=== PATIENT | male | born 1970 | race Caucasian/White ===

== ENCOUNTER → 2019-11-05 16:09 | Outpatient (CLI) | payer BC, SELFPAY ==
--- NOTE | ~2019-11-05 | XR_ITS ---
EXAMINATION: XR lumbar spine 2-3V EXAM DATE: 11/05/2019 16:29 INDICATION: Low back pain, lifting injury 4-5 years ago. TECHNIQUE: Lumber spine frontal, lateral, lateral L5-S1 projections for interpretation. There is no prior study for comparison. FINDINGS: There is mild diffuse thoracolumbar disc disease, mild to moderate lower lumbar facet arth ropathy. Sacrum, sacroiliac joints, sacral arcuate lines are intact. Paraspinal soft tissue is unrema rkable. The vertebral bodies are aligned in the AP dimension. IMPRESSION: 1. Mild lumbar disc disease 2. Mild to moderate facet arthropathy. Reviewed, dictated and finalized at location A.
== END ==
PROVIDERS: PCP Emergency Medicine; Visit Provider Nurse Practitioner
DX: M51.36 Other intervertebral disc degeneration, lumbar region (principal)
CPT/HCPCS: 72100

== ENCOUNTER 2020-06-03 16:47 | Emergency (ER) | payer BC, SELFPAY ==
[2020-06-03 17:08] VITALS: BP 203/97; PULSE 69; RESP 18; TEMP 36.3; O2SAT 99
[2020-06-03 17:09] VITALS: O2SAT 98
[2020-06-03 17:15] VITALS: O2SAT 98
[2020-06-03 17:30] VITALS: O2SAT 97
[2020-06-03 17:45] VITALS: O2SAT 98
--- NOTE | 2020-06-03 17:58 | ED.GENADULT ---
HPI - General Adult General Chief complaint: Head Injury Stated complaint: head injury (fall) Time Seen by Provider: 06/03/20 17:17 Source: patient Mode of arrival: ambulatory Limitations: no limitations History of Present Illness HPI narrative: Patient 50-year-old male who presents to emergency department for evaluation of head injury patient notes he was walking when he slipped on a surface falling striking the head patient notes hematoma to the scalp notes aching pain at the location of the hematoma but otherwise denies any headache lightheadedness dizziness nausea vomiting weakness syncope LOC or anticoagulant use patient notes minimal discomfort on arrival resting in the room in no distress does not appear uncomfortable Related Data Allergies Allergy/AdvReac Type Severity Reaction Status Date / Time No Known Allergies Allergy Unverified 07/26/18 18:30 Review of Systems Review of Systems: All systems reviewed & are unremarkable except as noted in HPI and below PMFSH Family History Family History (Updated 04/11/18 @ 09:45 by DOCTOR UNKNOWN) Mother Family history of obesity Family history of malignant melanoma Father Patient's father is in good health Hypertension Sibling Patient's sister is in good health Social History Social History Smoking status: Current every day smoker Alcohol intake: never Exam Narrative: Exam Narrative: GENERAL: Well-appearing, well-nourished, and in no acute distress. HEAD: Normocephalic, hematoma posterior parietal scalp EYES: PERRLA and EOMI. ENT: Nares clear, no rhinorrhea or epistaxis. Mucous membranes moist. NECK: Supple. No adenopathy or masses. No carotid bruits or JVD CHEST: Clear to auscultation. No respiratory distress. No wheezes rales or rhonchi HEART: Regular rate and rhythm. No murmur heard. Normal peripheral pulses. ABDOMEN: Soft, nontender, nondistended, normal active bowel sounds. EXTREMITIES: Normal range of motion. No edema. No cervical thoracic or lumbar tenderness SKIN: Warm, dry, no rash. NEURO: No focal deficits. Alert and oriented x3. Cranial nerves II through XII grossly intact. Normal speech and gait PSYCH: Normal mood and affect. Course Course Emergency Course: Patient in the room minimal discomfort no distress felt appropriate for outpatient reevaluation agreeing to return if symptoms worsen Vital Signs Vital signs: Vital Signs Temperature 97.3 F L 06/03/20 17:08 Pulse Rate 69 06/03/20 17:08 Respiratory Rate 18 06/03/20 17:08 Blood Pressure 203/97 H 06/03/20 17:08 Pulse Oximetry 99 06/03/20 17:08 Temperature 97.3 F L 06/03/20 17:08 Pulse Rate 69 06/03/20 17:08 Respiratory Rate 18 06/03/20 17:08 Blood Pressure 203/97 H 06/03/20 17:08 Pulse Oximetry 99 06/03/20 17:08 Medical Decision Making MDM Narrative Medical decision making narrative: Patient with minor head injury will be discharged home with outpatient follow-up patient agrees with this plan Vital Signs Vital Signs: Vital Signs Temperature 97.3 F L 06/03/20 17:08 Pulse Rate 69 06/03/20 17:08 Respiratory Rate 18 06/03/20 17:08 Blood Pressure 203/97 H 06/03/20 17:08 Pulse Oximetry 99 06/03/20 17:08 Temperature 97.3 F L 06/03/20 17:08 Pulse Rate 69 06/03/20 17:08 Respiratory Rate 18 06/03/20 17:08 Blood Pressure 203/97 H 06/03/20 17:08 Pulse Oximetry 99 06/03/20 17:08 Discharge Plan Discharge Clinical Impression: Closed head injury Patient Disposition: Home, Self-Care Condition: Stable Instructions: Antibiotic Form, Head Injury (ED) Additional Instructions: Follow up with your primary care doctor in 5-7 days for re-evaluation. Go to ER for worsening pain, vision changes, nausea/vomiting, fever/chills, weakness, chest pain, shortness of breath, numbness/tingling, slurred speech, difficulty walking, change in mental status etc. or any
[2020-06-03 18:00] VITALS: O2SAT 98
== END 2020-06-03 18:17 | disposition home or self-care (01) ==
PROVIDERS: Emergency Provider Emergency Medicine; PCP Emergency Medicine
DX: S09.90XA Unspecified injury of head, initial encounter (principal); F17.210 Nicotine dependence, cigarettes, uncomplicated; W01.0XXA Fall on same level from slipping, tripping and stumbling without subsequent striking against object, initial encounter
CPT/HCPCS: 99283

== ENCOUNTER 2021-05-16 01:28 | Day surgery (SDC) | payer BC, SELFPAY ==
[2021-05-06 13:29] VITALS: BMI 42.7
[2021-05-16 09:42] VITALS: BP 189/98; PULSE 92; RESP 17; TEMP 35.7; O2SAT 99; BMI 42.5
--- NOTE | 2021-05-16 09:56 | P.PNAN_ITS ---
Anes - Initial Pre Proc Eval Procedure: Operation Date: 05/16/21 10:30 Proposed Procedures p Screening Colonoscopy - David Ward MD Date/Time: 05/16/21 09:56 Surgeon: David Ward MD Pre Op Diagnosis: hx of colon polyps, neoplasm screening Patient Data Age: 51 Gender: M Height: 1.7 m Weight: 123 kg Last Vital Signs Temp 35.7 C L 05/16/21 09:42 Pulse 92 05/16/21 09:42 Resp 17 05/16/21 09:42 BP 189/98 H 05/16/21 09:42 Pulse Ox 99 05/16/21 09:42 Allergies Allergy/AdvReac Type Severity Reaction Status Date / Time No Known Allergies Allergy Verified 05/16/21 09:40 Home Medications Medication Instructions Recorded Confirmed Type hydrocodone-acetaminophen 5 - 325 tablet PO Q12-24H PRN 05/06/21 05/16/21 History losartan 100 mg PO DAILY 05/06/21 05/16/21 History rosuvastatin 10 mg PO DAILY 05/06/21 05/16/21 History Patient hx anesthesia problems: none Family hx anesthesia problems: none Results Review: All pre-operative results and documents have been reviewed as part of the pre-operative evaluation. [facility] Past Medical History Medical History (Updated 05/16/21 @ 09:57 by Slick Hui MD) Chronic back pain HTN (hypertension) Hyperlipidemia Morbid obesity Family History Family History Mother Family history of obesity Family history of malignant melanoma Father Patient's father is in good health Hypertension Sibling Patient's sister is in good health Social History Social History Smoking status: Current every day smoker Alcohol intake: current Substance use: current Substance use type: other Other substance usage details: THC Vape pen Living arrangements: with family Spiritual care concerns: No Anes - Eval Final PreProcedure Day of Procedure 05/16/21 09:56 Patient weight: morbidly obese Heart: regular rate and rhythm Lungs: clear to auscultation Airway: Mallampati scale class II Neurological: alert and oriented Last oral intake: >/= 8 hours ASA classification: III Emergent: no Anesthetic plan: proceed Anesthesia type and monitoring: general GIVS and standard monitoring Results Review: All pre-operative results and documents have been reviewed as part of the pre-operative evaluation. Informed Consent: The patient's anesthetic plan and its attendant risks and benefits were discussed with the patient/family/POA. Questions were solicited and answers provided to the satisfaction of the patient/family/POA.
[2021-05-16] MEDS: LACTATED RINGERS 1,000 ML 150 ML IV CONT (10:06)
--- NOTE | 2021-05-16 10:13 | WPDGICN ---
Assessment and Plan Assessment and plan (1) History of colon polyps: Code(s): Z86.010 - Personal history of colonic polyps Status: Acute Assessment and Plan: Patient has a history of colon polyps. He presents today for screening colonoscopy because of this. Further recommendations will be given after endoscopy. GI Consult Note Consult date/time: 05/16/21 10:13 HPI: Gio Grider is a 51 year old male Presents for screening colonoscopy. Patient reports 10 years ago had colonoscopy in multiple colon polyps were identified. He has had several follow-up colonoscopy subsequently with additional polyps noted. Most recent colonoscopy was 3-4 years ago. Patient reports that his current weight appetite and bowel movements are normal. His family history is noncontributory. He has noticed no bleeding. Review of Systems Review of Systems: All systems reviewed & are unremarkable except as noted in HPI and below PMFSH Past Medical History Medical History (Updated 05/16/21 @ 10:14 by David Ward MD) Chronic back pain HTN (hypertension) Hyperlipidemia Morbid obesity Family History Family History Mother Family history of obesity Family history of malignant melanoma Father Patient's father is in good health Hypertension Sibling Patient's sister is in good health Social History Social History Smoking status: Current every day smoker Alcohol intake: current Substance use: current Substance use type: other Other substance usage details: THC Vape pen Living arrangements: with family Spiritual care concerns: No Meds Home Medications and Allergies Home Medications Medication Instructions Recorded Confirmed Type hydrocodone-acetaminophen 5 - 325 tablet PO Q12-24H PRN 05/06/21 05/16/21 History losartan 100 mg PO DAILY 05/06/21 05/16/21 History rosuvastatin 10 mg PO DAILY 05/06/21 05/16/21 History Allergies Allergy/AdvReac Type Severity Reaction Status Date / Time No Known Allergies Allergy Verified 05/16/21 09:40 Vital Signs Vital Signs - 24 hr 05/16/21 09:42 Temperature 96.3 F L Pulse Rate 92 Respiratory Rate 17 Blood Pressure 189/98 H Pulse Oximetry 99 Exam Narrative: Physical exam reveals patient to be alert. Vital signs stable. HEENT exam is unremarkable. Patient is anicteric. Lungs are clear to auscultation and percussion. Heart is without murmur or extra sounds. Abdominal exam bowel sounds are present soft nontender with no organomegaly. Digital external rectal exam is normal.
[2021-05-16 10:44] VITALS: BP 126/84; PULSE 85; RESP 18; O2SAT 96
[2021-05-16 10:54] VITALS: BP 150/97; PULSE 76; RESP 21; O2SAT 96
[2021-05-16 11:04] VITALS: BP 144/91; PULSE 74; RESP 14; O2SAT 95
== END 2021-05-16 11:16 | disposition home or self-care (01) ==
PROVIDERS: PCP Emergency Medicine; Visit Provider Internal Medicine Gastroenterology
PROC: 0DJD8ZZ Inspection of Lower Intestinal Tract, Via Natural or Artificial Opening Endoscopic (ICD-10-PCS; CPT 45378; principal; 2021-05-16 10:30)
DX: Z12.11 Encounter for screening for malignant neoplasm of colon (principal); D12.7 Benign neoplasm of rectosigmoid junction; I10 Essential (primary) hypertension; E78.5 Hyperlipidemia, unspecified; F17.210 Nicotine dependence, cigarettes, uncomplicated; E66.9 Obesity, unspecified; Z68.41 Body mass index [BMI] 40.0-44.9, adult
CPT/HCPCS: 45385; 88305; J2001; J2704; J7120

== ENCOUNTER 2021-12-15 02:10 | Emergency (ER) | payer BC, SELFPAY ==
--- NOTE | ~2021-12-15 | CT_ITS ---
EXAMINATION: CT abdomen pelvis w con DATE: 12/15/2021 03:27 INDICATION: Left lower quadrant abdominal pain. TECHNIQUE: Computed tomography (CT) of the abdomen and pelvis was performed with 100 mL Omnipaque 350 intravenous contrast. Automated exposure control and iterative reconstruction technique were employe d. The dose-length product was 1492.99 mGy-cm. COMPARISON: Abdomen ultrasound 03/13/2018 FINDINGS: The visualized portions of the lung bases are clear without pneumonia or pleural effusion. The heart size is normal. No pericardial effusion. There is a 15 mm hypodense mass in right hepatic l obe. There are gallstones in the gallbladder, which is normal in size. The spleen, pancreas, and adre nal glands are normal. There are cysts in the kidneys measuring up to 6.0 cm on the left. There are b ilateral inguinal hernias containing fat. There are scattered diverticula in the colon. There is fat stranding around an epiploic appendage of descending colon, consistent with epiploic appendagitis. Th ere are changes of appendectomy. There are no dilated loops of bowel. There are no pathologically enl arged lymph nodes. There is no free intraperitoneal fluid. There is mild thoracolumbar spondylosis. IMPRESSION: 1. Epiploic appendagitis of descending colon. 2. 15 mm liver mass, which may be benign or malignant. Abdomen MRI without and with contrast is recom mended. Reviewed, dictated and finalized at location A. IMPRESSION: 1. Epiploic appendagitis of descending colon. 2. 15 mm liver mass, which may be benign or malignant. Abdomen MRI without and with contrast is recommended.
[2021-12-15 02:13] VITALS: BP 140/69; PULSE 68; RESP 16; TEMP 36.5; O2SAT 98
[2021-12-15 02:45] LABS: Basophils Absolute Auto 0.1 K/mm3 (0.0-0.1); Basophils Percent Auto 0.5 % (0.2-1.2); Eosinophils Absolute Auto 0.5 K/mm3 (0-0.3); Eosinophils Percent Auto 3.7 % (0-4.4); Hematocrit 42.5 % (42.0-52.0); Hemoglobin 14.2 g/dL (14.0-18.0); Immature Granulocyte Absolute 0.04 K/mm3 (0.00-0.031); Immature Granulocyte Percent A 0.3 % (0-0.5); Lymphocytes Absolute Auto 2.84 K/mm3 (0.9-3.2); Lymphocytes Percent Auto 23.3 % (18.3-44.2); Mean Corpuscular HGB Conc 33.4 g/dl (32-36); Mean Corpuscular Hemoglobin 29.5 pg (26-34); Mean Corpuscular Volume 88.4 fl (80-100); Mean Platelet Volume 11.2 fl (7.4-10.4); Neutrophils Absolute Auto 7.8 K/mm3 (1.3-6.7); Neutrophils Percent Auto 64.2 % (45.5-73.1); Platelet Count Result 257 k/mm3 (150-375); Red Blood Count 4.81 M/mm3 (4.6-6.20); Red Cell Distribution Width 13.8 % (11.5-14.5); White Blood Count 12.2 K/mm3 (4.5-10.0)
--- NOTE | 2021-12-15 02:58 | ED.GENADULT ---
HPI - General Adult General Chief complaint: Abdominal Pain Stated complaint: abdominal pain Time Seen by Provider: 12/15/21 02:25 History of Present Illness HPI narrative: Patient is a 51-year-old male who presents ER with left-sided abdominal pain. Worsening over the last 3 days. No fevers or chills or sweats. Associate with diarrhea last couple days. Feels bloated but he has been able to pass gas. Saw his PCP today who thought he was constipated and prescribed him some laxative. Has not had similar symptoms previously. No urinary symptoms. Related Data Home Medications Medication Instructions Recorded Confirmed hydrocodone 5 mg-acetaminophen 325 5 - 325 tablet PO Q12-24H PRN Pain 05/06/21 05/16/21 mg tablet losartan 100 mg tablet 100 mg PO DAILY 05/06/21 05/16/21 rosuvastatin 10 mg tablet 10 mg PO DAILY 05/06/21 05/16/21 Allergies Allergy/AdvReac Type Severity Reaction Status Date / Time No Known Allergies Allergy Verified 12/15/21 02:19 Review of Systems Review of Systems: All systems reviewed & are unremarkable except as noted in HPI and below Constitutional: Constitutional: Denies chills and Denies fever(s) ENT: Denies nasal congestion and Denies sore throat Cardiovascular: Cardiovascular: Denies chest pain, Denies rapid heart rate and Denies radiating jaw, neck or arm pain Respiratory: Respiratory: Denies cough and Denies dyspnea Gastrointestinal: Gastrointestinal: Reports abdominal pain, Reports diarrhea, Denies nausea and Denies vomiting Genitourinary: Genitourinary: Denies dysuria and Denies urinary frequency [facility] Past Medical History Medical History (Updated 12/15/21 @ 05:49 by Kuldeep Lema MD) Chronic back pain HTN (hypertension) Hyperlipidemia Morbid obesity Surgical History Surgical History (Updated 12/15/21 @ 06:22 by Kuldeep Lema MD) History of appendectomy Family History Family History Mother Family history of obesity Family history of malignant melanoma Father Patient's father is in good health Hypertension Sibling Patient's sister is in good health Social History Social History Smoking status: Current every day smoker Alcohol intake: current Substance use: current Substance use type: other Other substance usage details: THC Vape pen Spiritual care concerns: No Exam Narrative: GENERAL: Well-appearing, well-nourished, and in no acute distress. HEAD: Normocephalic, atraumatic. ENT: Mucous membranes moist. CHEST: Clear to auscultation. No respiratory distress. HEART: Regular rate and rhythm. Normal peripheral pulses. ABDOMEN: Soft, tender palpation left mid abdomen without guarding nondistended, normal active bowel sounds. EXTREMITIES: Normal range of motion. No edema. SKIN: Warm, dry, no rash. NEURO: Alert and oriented x3. PSYCH: Normal mood and affect. Course Course Emergency Course: No right upper quadrant pain. No pain with eating. Informed him of results of CT scan. Discussed treatment plan discharge home. Vital Signs Vital signs: Vital Signs Temperature 97.7 F 12/15/21 02:13 Pulse Rate 68 12/15/21 02:13 Respiratory Rate 16 12/15/21 02:13 Blood Pressure 140/69 12/15/21 02:13 Pulse Oximetry 98 12/15/21 02:13 Oxygen Delivery Room Air 12/15/21 02:13 Temperature 97.7 F 12/15/21 02:13 Pulse Rate 68 12/15/21 02:13 Respiratory Rate 16 12/15/21 02:13 Blood Pressure 140/69 12/15/21 02:13 Pulse Oximetry 98 12/15/21 02:13 Oxygen Delivery Room Air 12/15/21 02:13 Medical Decision Making Vital Signs Vital Signs: Vital Signs Temperature 97.7 F 12/15/21 02:13 Pulse Rate 68 12/15/21 02:13 Respiratory Rate 16 12/15/21 02:13 Blood Pressure 140/69 12/15/21 02:13 Pulse Oximetry 98 12/15/21 02:13 Oxygen Delivery Room Air 12/15/21 02:13 [place]
[2021-12-15 03:07] LABS: Alanine Aminotransferase 22 U/L (6-50); Albumin Level 4.4 g/dL (3.5-5.1); Alkaline Phosphatase 71 U/L (38-126); Anion Gap 11 mmol/L (8-16); Aspartate Amino Transferase 35 U/L (17-59); Bilirubin,Total 0.4 mg/dL (0.2-1.3); Blood Urea Nitrogen 12 mg/dL (9-20); Calcium 9.5 mg/dL (8.4-10.2); Carbon Dioxide 30 mmol/L (22-30); Chloride 98 mmol/L (98-107); Estimated CRCL calculation 109 ml/min; Estimated Glomerular Filt Rate > 60; Glucose 97 mg/dL (65-110); Lipase 118 U/L (23-300); Potassium 3.7 mmol/L (3.4-5.0); Sodium 139 mmol/L (137-145)
[2021-12-15 03:13] LABS: Appearance Urine Clear (Clear); Bilirubin Urine Negative (Negative); Blood Urine Negative (Negative); Color Urine Yellow (Yellow); Glucose Urine UA Negative (Negative); Ketones Urine Trace mg/dL (Negative); Leukocyte Esterase Ur Negative LEU/UL (Negative); Nitrate Urine Negative (Negative); Protein Urine Negative (Negative); Specific Grav Ur 1.025 (1.001-1.035)
[2021-12-15 03:28] LABS: Mucus Urine Rare /lpf; RBC Urine 0-2 /hpf (0-2); WBC Urine 0-3 /hpf
[2021-12-15 03:45] LABS: Add Urine Microscopic? YES
[2021-12-15] MEDS: SODIUM CHLORIDE 0.9% IV 100 ML 500 ML (03:52)
[2021-12-15] MEDS: MORPHINE SULFATE (*CRX) 4 MG/ML INJ IV PUSH (03:54)
[2021-12-15] MEDS: CIPROFLOXACIN 500 MG TAB PO (05:57)
[2021-12-15] MEDS: metroNIDAZOLE 250 MG TABLET 500 MG PO (05:57)
[2021-12-15 06:23] VITALS: PULSE 87; RESP 18; O2SAT 98
== END 2021-12-15 06:28 | disposition home or self-care (01) ==
PROVIDERS: Emergency Provider Emergency Medicine; PCP Emergency Medicine
DX: K57.32 Diverticulitis of large intestine without perforation or abscess without bleeding (principal); K80.20 Calculus of gallbladder without cholecystitis without obstruction; I10 Essential (primary) hypertension; E78.5 Hyperlipidemia, unspecified; E66.01 Morbid (severe) obesity due to excess calories; Z68.41 Body mass index [BMI] 40.0-44.9, adult; F17.200 Nicotine dependence, unspecified, uncomplicated
CPT/HCPCS: 36415; 74177; 80053; 81001; 83690; 85025; 96361; 96374; 99284; A9270; J2270; Q9967

== ENCOUNTER → 2022-01-02 09:07 | Outpatient (CLI) | payer BC, SELFPAY ==
--- NOTE | ~2022-01-02 | MR_ITS ---
EXAMINATION: MR abdomen wo/w con DATE: 01/02/2022 10:23 INDICATION: Liver mass. Other specified diseases of liver. TECHNIQUE: Magnetic resonance imaging (MRI) of the abdomen was performed without and with 20 mL Multi Gabby intravenous contrast. COMPARISON: CT abdomen and pelvis 12/15/2021 FINDINGS: There are 4 hyperenhancing masses in the liver measuring up to 1.5 cm. No washout. There are gallston es in the gallbladder, which is normal in size. The spleen, pancreas, and adrenal glands are normal. There are cysts in the kidneys measuring up to 5.9 cm on the left. There are no dilated loops of rose l. There are no pathologically enlarged lymph nodes. There is no free intraperitoneal fluid. IMPRESSION: 1. 4 hyperenhancing liver masses measuring up to 1.5 cm. In the absence of known malignancy or chroni c liver disease, these findings are likely focal nodular hyperplasia or hemangiomas. 2. Cholelithiasis. No evidence of acute cholecystitis. Reviewed, dictated and finalized at location A. IMPRESSION: 1. 4 hyperenhancing liver masses measuring up to 1.5 cm. In the absence of know n malignancy or chronic liver disease, these findings are likely focal nodular hyperplasia or hemangiomas. 2. Cholelithiasis. No evidence of acute cholecystitis.
== END ==
PROVIDERS: PCP Emergency Medicine; Visit Provider Emergency Medicine
DX: K76.89 Other specified diseases of liver (principal); K80.20 Calculus of gallbladder without cholecystitis without obstruction
CPT/HCPCS: 74183; A9577

== ENCOUNTER 2023-01-12 15:02 | Emergency (ER) | payer BC, SELFPAY ==
[2023-01-12 15:18] VITALS: BP 140/77; PULSE 77; RESP 16; TEMP 37.2; O2SAT 100
--- NOTE | 2023-01-12 16:00 | ED.URI ---
HPI - URI/Sore Throat General Chief Complaint: Upper Respiratory Infection Stated Complaint: cough Time Seen by Provider: 01/12/23 15:51 Source: patient and RN notes reviewed Mode of arrival: ambulatory Limitations: no limitations History of Present Illness HPI Narrative: Patient presents today with a one-week history of cough that is occasionally productive. Denies any additional symptoms to include sore throat, congestion, rhinorrhea, postnasal drip, fever, shortness of breath, chest pain. He has done a few COVID test at home that were negative. Denies history of COPD or asthma. He stop smoking in 2007. He has been using Mucinex DM and Robitussin DM along with vitamin-C, vitamin D3, and Echinacea with mild relief. Related Data Home Medications Medication Instructions Recorded Confirmed hydrocodone 5 mg-acetaminophen 325 5 - 325 tablet PO Q12-24H PRN Pain 05/06/21 01/12/23 mg tablet losartan 100 mg tablet 100 mg PO DAILY 05/06/21 01/12/23 rosuvastatin 10 mg tablet 10 mg PO DAILY 05/06/21 01/12/23 Allergies Allergy/AdvReac Type Severity Reaction Status Date / Time No Known Allergies Allergy Verified 12/15/21 02:19 Review of Systems Review of Systems: CONSTITUTIONAL: Denies body aches, fever, chills, or sweats. EYES: Denies visual changes, redness, or discharge. ENT: Denies rhinorrhea, congestion, sore throat, or otalgia. CARDIOVASCULAR: Denies chest pain, palpitations, or edema. RESPIRATORY: Denies dyspnea.+ cough GASTROINTESTINAL: Denies abdominal pain, nausea, vomiting, or diarrhea. GENITOURINARY: Denies dysuria or hematuria. SKIN: Denies rash, itching, or wounds. MUSCULOSKELETAL: Denies back pain, joint pain, or myalgia. NEUROLOGIC: Denies headache, numbness, tingling, or weakness. PSYCH: Denies depression or anxiety. [facility] Past Medical History Medical History Chronic back pain HTN (hypertension) Hyperlipidemia Morbid obesity Surgical History Surgical History History of appendectomy Family History Family History Mother Family history of obesity Family history of malignant melanoma Father Patient's father is in good health Hypertension Sibling Patient's sister is in good health Social History Social History Smoking status: Current every day smoker Alcohol intake: current Substance use: current Substance use type: other Other substance usage details: THC Vape pen Living arrangements: with family Spiritual care concerns: No Comments At time of signature, I have reviewed and agree with nursing past medical, surgical, social and family history unless otherwise noted. Please see nursing chart for further information. There is no relevant family history pertinent to the presenting complaint Exam Narrative: GENERAL: Well-appearing, well-nourished, and in no acute distress. HEAD: Normocephalic, atraumatic. EYES: EOMI. No redness or drainage. Conjunctivae normal. ENT: Mucous membranes pink and moist. Nares clear. No rhinorrhea. TMs normal bilaterally. Throat normal. Uvula midline. NECK: Normal AROM. Supple. No lymphadenopathy. CHEST: No respiratory distress. Very slight expiratory wheeze in the left lower lobe, otherwise clear. HEART: Regular rate and rhythm. No murmur appreciated. EXTREMITIES: Normal range of motion. No edema. SKIN: Warm, dry, no rash. Capillary refill normal. Normal skin turgor. NEURO: No focal deficits. Alert and oriented x3. Gait steady. PSYCH: Normal affect. No signs of depression or anxiety. Course Course Level of Care: Express Care Visit Vital Signs Vital signs: Vital Signs Temperature 98.9 F 01/12/23 15:18 Pulse Rate 77 01/12/23 15:18 Respiratory Rate 16 01/12/23 15:18 B
== END 2023-01-12 16:05 | disposition home or self-care (01) ==
PROVIDERS: Emergency Provider Nurse Practitioner; PCP Emergency Medicine
DX: J40 Bronchitis, not specified as acute or chronic (principal); I10 Essential (primary) hypertension; E78.5 Hyperlipidemia, unspecified; Z79.891 Long term (current) use of opiate analgesic; Z79.899 Other long term (current) drug therapy; Z87.891 Personal history of nicotine dependence
CPT/HCPCS: 99213; G0463

== ENCOUNTER 2023-01-17 17:33 | Emergency (ER) | payer BC, SELFPAY ==
[2023-01-17 17:44] VITALS: BP 160/88; PULSE 68; RESP 18; TEMP 36.9; O2SAT 98
--- NOTE | 2023-01-17 17:47 | ED.GENADULT ---
HPI - General Adult General Chief complaint: Upper Respiratory Infection Stated complaint: cough Source: patient Mode of arrival: ambulatory Limitations: no limitations History of Present Illness HPI narrative: 52 year old male presented for complaint of persistent cough for about 2 weeks. Patient was seen on 01/12 and treated for bronchitis with prednisone. He reports today was his last dose. He has also been taking cough syrup, Mucinex, Echinacea, vitamin-C for symptoms He reports the pain he was having associated with the cough is now improved. However he reports the cough is persistent. Occasionally productive of light yellow sputum. Denies any additional symptoms to include sore throat, congestion, fever, fatigue, shortness of breath, chest pain.? Related Data Home Medications Medication Instructions Recorded Confirmed hydrocodone 5 mg-acetaminophen 325 5 - 325 tablet PO Q12-24H PRN Pain 05/06/21 01/12/23 mg tablet losartan 100 mg tablet 100 mg PO DAILY 05/06/21 01/12/23 rosuvastatin 10 mg tablet 10 mg PO DAILY 05/06/21 01/12/23 Allergies Allergy/AdvReac Type Severity Reaction Status Date / Time No Known Allergies Allergy Verified 01/17/23 17:35 Review of Systems Review of Systems: CONSTITUTIONAL: Denies body aches, fever, chills, or sweats. EYES: Denies visual changes, redness, or discharge. ENT: Denies rhinorrhea, congestion, sore throat, or otalgia. CARDIOVASCULAR: Denies chest pain, palpitations, or edema. RESPIRATORY: Reports cough, Denies sob, wheezing. GASTROINTESTINAL: Denies abdominal pain, nausea, vomiting, or diarrhea. GENITOURINARY: Denies dysuria or hematuria. SKIN: Denies rash, itching, or wounds. MUSCULOSKELETAL: Denies back pain, joint pain, or myalgia. NEUROLOGIC: Denies headache, numbness, tingling, or weakness. PSYCH: Denies depression or anxiety. All systems reviewed & are unremarkable except as noted in HPI and below PMFSH Past Medical History Medical History Chronic back pain HTN (hypertension) Hyperlipidemia Morbid obesity Surgical History Surgical History History of appendectomy Family History Family History Mother Family history of obesity Family history of malignant melanoma Father Patient's father is in good health Hypertension Sibling Patient's sister is in good health Social History Social History Smoking status: Current every day smoker Alcohol intake: current Substance use: current Substance use type: other Other substance usage details: THC Vape pen Living arrangements: with family Spiritual care concerns: No Comments At time of signature, I have reviewed and agree with nursing past medical, surgical, social and family history unless otherwise noted. Please see nursing chart for further information. There is no relevant family history pertinent to the presenting complaint Exam Narrative: GENERAL: Well-appearing, in no acute distress. EYES: EOMI. No redness or drainage. Conjunctivae normal. ENT: Mucous membranes pink and moist. No rhinorrhea. TMs normal bilaterally. Throat normal. Uvula midline. NECK: Normal AROM. Supple. CHEST: No respiratory distress. Lungs clear to all garrett. HEART: Regular rate and rhythm. No murmur appreciated. ABDOMEN: Soft, nontender, nondistended, normal active bowel sounds. EXTREMITIES: Normal range of motion. No edema. SKIN: Warm, dry, no rash. Capillary refill normal. Normal skin turgor. NEURO: Alert and oriented x3. Gait steady. PSYCH: Normal affect. Course Course Emergency Course: Patient is aware of diagnosis, understands and agrees to treatment plan. Anticipatory guidance given. Patient agrees to follow-up as directed and is aware of reasons to seek
== END 2023-01-17 18:03 | disposition home or self-care (01) ==
PROVIDERS: Emergency Provider Nurse Practitioner Family; PCP Emergency Medicine
DX: J40 Bronchitis, not specified as acute or chronic (principal); I10 Essential (primary) hypertension; E78.5 Hyperlipidemia, unspecified; F17.200 Nicotine dependence, unspecified, uncomplicated
CPT/HCPCS: 99213; G0463

== ENCOUNTER 2024-09-21 23:19 | Emergency (ER) | payer BC, SELFPAY ==
--- NOTE | ~2024-09-21 | XR_ITS ---
Supine and upright views of the abdomen Clinical history: Right renal stone Findings: Bowel gas pattern is nonspecific. No evidence for obstruction or free air. 9 mm stone prese nt the right renal pelvis region or right proximal ureter. Additional probable tiny right renal stone present.. Osseous structures are intact. Impression: 9 mm right proximal ureteral or right renal pelvis stone. Additional probable tiny right renal stone. Reviewed, dictated and finalized at location . Impression: 9 mm right proximal ureteral or right renal pelvis stone. Additional probable tiny right renal stone.
--- NOTE | ~2024-09-21 | CT_ITS ---
Non-contrast CT scan of the Abdomen and Pelvis Clinical indication: Right flank pain Technique: 2.5 mm axial scans were obtained through the abdomen and pelvis without intravenous or or al contrast. Dose reduction technique was used on this scan by utilizing automated exposure control a nd iterative reconstruction technique. The dose-length product (DLP) was 928.41 mGy-cm. COMPARISON: 12/15/2021 Findings: Images through the lung bases reveal no abnormalities. 9 mm ovoid stone present proximal right ureter with mild right hydronephrosis. Additional 3 mm nonobs tructing right renal stone present. There are small amount of left renal stones measuring up to 2 mm. 6.7 cm anterior left renal cyst present. Suggestion of indeterminate 1.7 cm lesion at the posterior margin of the left kidney (axial image 81). No left ureteral stone or left hydronephrosis. The liver, spleen, pancreas, and adrenals appear normal. Calcified gallstones are present. There is n o aortic aneurysm. There is no evidence of bowel obstruction. Images through the pelvis were performed. There is no evidence of ascites or lymphadenopathy. Urinary bladder unremarkable. No pelvic mass seen. Impression: 9 mm proximal right ureteral stone with mild right hydronephrosis. Additional bilateral nonobstructing renal stones, as above. 1.7 cm indeterminate lesion suspected at the posterior margin of the left kidney. Follow-up renal mas s protocol CT or MR recommended to further assess. Cholelithiasis. Reviewed, dictated and finalized at [facility]. Impression: 9 mm proximal right ureteral stone with mild right hydronephrosis. Additional bilateral nonobstructing renal stones, as above. 1.7 cm indeterminate lesion suspected at the posterior margin of the left kidne y. Follow-up renal mass protocol CT or MR recommended to further assess. Cholelithiasis.
[2024-09-21 23:21] VITALS: BP 168/93; PULSE 81; RESP 16; TEMP 36.6; O2SAT 100
--- OUTSIDE RECORDS SUMMARY | 2024-09-21 23:22 | XMS_ITS | Clinical Summary ---
Author Organization [facility] Address [address] [place] [address] Care Team Providers Care Manager Medical Device Name Role Phone Martín Gayle MD Primary Care Provider [phone] Source Comments [facility],non-owned Affiliates and Associated Physician Practices is amultiple site organization consisting of ambulatory clinics and hospital sitesin [place], [place], [place] and [place]. This disclosure is being madepursuant to the Care Everywhere program and may not contain all information available regarding this patient. Last updated 18.[facility] Allergies No known active allergies Medications * Be aware that medications may not be up to date on this document. Alwaysverify current medications with the patient. ibuprofen (MOTRIN) 600 MG tablet Take 1 Tab by mouth every 6 hours as needed for Pain. 20 Tab 0 11/18/2011 Active hydrocodone-acet aminophen (VICODIN) 5-500 MG tablet Take 1-2 Tabs by mouth 4 times daily as needed for Pain. 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 Gender Identity Not on file Sexual Orientation Not on file Last Filed Vital Signs Vital Sign Reading Time Taken Comments Blood Pressure 135/85 11/18/2011 12:00 PM CDT Pulse 79 11/18/2011 9:53 AM CDT Temperature 37.1 C (98.7 F) 11/18/2011 9:53 AM CDT Respiratory Rate 18 11/18/2011 9:53 AM CDT Oxygen Saturation 98% 11/18/2011 12:00 PM CDT Inhaled Oxygen Concentration - - Weight 109.8 kg (242 lb) 11/18/2011 9:53 AM CDT Height 172.7 cm (5' 8) 11/18/2011 9:53 AM CDT Body Mass Index 36.8 11/18/2011 9:53 AM CDT Plan of Treatment Health Maintenance Due Date Last Done Comments COLOGUARD (AGES 45-75) - COL ON CA SCREENING 1971 COLON MONITORING 1971 COLONOSCOPY - COLON CA SCREENING 1971 CT COLONOGRAPHY - COLON CA SCREENING 1971 Colorectal Cancer Screening 1971 FIT - COLON CA SCREENING 1971 FLEX SIG - COLON CA SCREENING 1971 LIPID TESTING 1971 HIV SCREENING 1986 HEPATITIS C SCREENING 02/11/1989 HEPATITIS B VACCINE (1 of 3 - 19+ 3-dose series) 1990 PNEUMOCOCCAL VACCINE 50+ (1 of 1 - PCV) 2021 ZOSTER VACCINE (1 of 2) 2021 DTAP/TDAP/TD VACCINES (2 - T d or Tdap) 11/17/2021 11/18/2011 COVID-19 VACCINE (1 - 2023-2 5 season) 2023 DEPRESSION SCREENING 04/16/2024 INFLUENZA VACCINE (Season Ended) 2024 HIB VACCINE Aged Out No longer eligi ble based on patient's age to complete this topic HPV VACCINE Aged Out No longer eligi ble based on patient's age to complete this topic MENINGOCOCCAL (Group B) VACC INE SHARED DECISION-MAKING Aged Out No longer eligibl e based on patient's age to complete this topic MENINGOCOCCAL GROUPS A/C/Y/W VACCINE Aged Out No longer eligible b ased on patient's age to complete this topic Care Teams Manager Medical Device Relationship Specialty Start Date End Date Martín Gayle MD PCP - General 05/18/21
--- OUTSIDE RECORDS SUMMARY | 2024-09-21 23:22 | XMS_ITS | Continuity of Care Document ---
Author Organization [facility] Address [address] [place] [address] Phone Care Team Providers Care Assignment Manager Name Role Phone Martín Gayle MD Unavailable Unavailable Allergies, Adverse Reactions, Alerts Substance Reaction Status Criticality No Known Allergies Active No Inform ation Medications Medication Instructions Dosage Effective Dates (start - stop) Status Comments losartan 100 mg tablet take 1 tablet by oral route every day 100 MG - Active rosuvastatin 20 mg tablet take 1 tablet by oral route every day 20 MG - Active Ozempic 2 mg/dose (8 mg/3 mL) subcutaneous pen injector inject (2MG) by subcutaneous route every week on the same day of each week 2 MG - Active sildenafil 50 mg tablet take 1 tablet by oral route every day as directe as needed 50 MG - Active Take one orally about one hour before active, max 1/24 hour [place] 7.5 mg-325 mg tablet take 1 tablet by oral route every 4 - 6 hours as needed for pain as needed 1 tablet - Active PRN for pain, avoid driving or operate machines Procedures Procedure Date OFFICE/OUTPATIENT VISIT, EST PREV VISIT, EST, AGE 40-64 OFFICE/OUTPATIENT VISIT, EST OFFICE/OUTPATIENT VISIT, EST OFFICE/OUTPATIENT VISIT, EST OFFICE/OUTPATIENT VISIT, EST OFFICE/OUTPATIENT VISIT, EST OFFICE/OUTPATIENT VISIT, EST OFFICE/OUTPATIENT VISIT, EST PREV VISIT, EST, AGE 40-64 OFFICE/OUTPATIENT VISIT, EST OFFICE/OUTPATIENT VISIT, EST OFFICE/OUTPATIENT VISIT, EST OFFICE/OUTPATIENT VISIT, EST OFFICE/OUTPATIENT VISIT, EST OFFICE/OUTPATIENT VISIT, EST OFFICE/OUTPATIENT VISIT, EST OFFICE/OUTPATIENT VISIT, EST OFFICE/OUTPATIENT VISIT, EST PREV VISIT, EST, AGE 40-64 OFFICE/OUTPATIENT VISIT, EST OFFICE/OUTPATIENT VISIT, EST PREV VISIT, EST, AGE 40-64 OFFICE/OUTPATIENT VISIT, EST PREV VISIT, EST, AGE 40-64 OFFICE/OUTPATIENT VISIT, EST OFFICE/OUTPATIENT VISIT, EST OFFICE/OUTPATIENT VISIT, EST OFFICE/OUTPATIENT VISIT, EST OFFICE/OUTPATIENT VISIT, EST OFFICE/OUTPATIENT VISIT, EST OFFICE/OUTPATIENT VISIT, EST PREV VISIT, EST, AGE 40-64 OFFICE/OUTPATIENT VISIT, EST OFFICE/OUTPATIENT VISIT, EST OFFICE/OUTPATIENT VISIT, EST OFFICE/OUTPATIENT VISIT, EST OFFICE/OUTPATIENT VISIT, EST OFFICE/OUTPATIENT VISIT, EST OFFICE/OUTPATIENT VISIT, EST PREV VISIT, EST, AGE 40-64 OFFICE/OUTPATIENT VISIT, EST OFFICE/OUTPATIENT VISIT, EST OFFICE/OUTPATIENT VISIT, EST OFFICE/OUTPATIENT VISIT, EST OFFICE/OUTPATIENT VISIT, EST OFFICE/OUTPATIENT VISIT, EST OFFICE/OUTPATIENT VISIT, EST OFFICE/OUTPATIENT VISIT, EST PREV VISIT, NEW, AGE 40-64 OFFICE/OUTPATIENT VISIT, NEW Advance Directives Directive Yes / No Effective Date File Name No Information Encounters Encounter Description Practice Location Reason(s) For Visit Diagnoses Date Provider Providers Copied on Encounter OFFICE/OUTPA TIENT VISIT, EST [facility], [address], [place], [place], [address], [place] tel:[phone] [facility] HLP (chief complaint) HTN (chief complaint) DM (chief complaint) colon (chief complaint) Essential (primary) hypertensionPolyp of colonMixed hyperlipidemiaType 2 diabetes mellitus without complicationsObstru ctive sleep apnea hypopnea 5 Ir[facility] Resendiz. [address], [place], [place], [address] , [place]. tel:[phone] PREV VISIT, EST, AGE 40-64 [facility], [address], [place], [place], [address], [place] tel:[phone] [facility] physical (chief complaint) Encounter for general adult medical exam w abnormal findingsEssential (primary) hypertensionAbnorma l weight lossMixed hyperlipidemiaMale erectile dysfunction, unspecifiedPolyp of colonType 2 diabetes mellitus without complications 4 Irwin Resendiz. [address], [place], [place], [address] , [place]. [phone] OFFICE/OUTPA TIENT VISIT, EST [facility], [address], [place], [place], [address], [place] tel:[phone] [facility] HTN (chief complaint) HLP (chief complaint) sleep apnea1 (chief complaint) DM (chief complaint) Essential (primary) hypertensionType 2 diabetes mellitus without complicationsMixed hyperlipidemiaObstr uctive sleep apnea hypopneaAbnormal weight loss 4 Ir[address] Resendiz. [address], [place], [place], [address] , [place]. [phone] OFFICE/OUTPA TIENT VISIT, EST [facility], [address], [place], [place], [address], [place] tel:[phone] [facility] HLP (chief complaint) DM (chief complaint) HTN (chief complaint) nausea1 (chief complaint) dysuria1 (chief complaint) DysuriaMixed hyperlipidemiaType 2 diabetes mellitus without complicationsAbnorm al weight lossGERD w/o esophagitisEssentia l (primary) hypertension 4 [address] Resendiz. [address] [place], [address] , [place]. tel:[phone] OFFICE/OUTPA TIENT VISIT, [facility], [address] [place], [address], [place] tel:[phone] [facility] UTI1 (chief complaint) DM (chief complaint) HLP (chief complaint) DysuriaType 2 diabetes mellitus without complicationsAbdomi nal painMixed hyperlipidemia 4 Ir[address] Resendiz. [address] [place], [address] , [place]. tel:[phone] OFFICE/OUTPA TIENT VISIT, [facility], [address] [place], [address], [place] tel:[phone] [facility] HLP (chief complaint) GI (chief complaint) DM (chief complaint) weight loss1 (chief complaint) Mixed hyperlipidemiaType 2 diabetes mellitus without complicationsAbnorm al weight lossIrritable bowel syndrome 4 Irwin Resendiz. [address] [place], [address] , [place]. tel: [phone] OFFICE/OUTPA TIENT VISIT, [facility], [address] [place], [address], [place] tel:[phone] [facility] DM (chief complaint) HLP (chief complaint) GI (chief complaint) Type 2 diabetes mellitus without complicationsIrrita ble bowel syndromeMixed hyperlipidemiaOccul t blood in stool 4 Ir[address] Resendiz. [address] [place], [address] , [place]. [phone] OFFICE/OUTPA TIENT VISIT, [facility], [address] [place], [address], [place] tel:[phone] [facility] cough1 (chief complaint) Acute bronchitis 3 Irwin Resendiz. [address], [place], [place], [address] , [place]. tel:[phone] PREV VISIT, EST, AGE 40-64 [facility], [address], [place], [place], [address], [place] tel:[phone] [facility] physical (chief complaint) Encounter for general adult medical exam w abnormal findingsOccult blood in stoolMale erectile dysfunction, unspecifiedMixed hyperlipidemiaEssen tial (primary) hypertensionPrimary central sleep apnea 3 Irwin Resendiz. [address], [place], [place], [address] , [place]. tel:[phone] OFFICE/OUTPA TIENT VISIT, [facility], [address], [place], [place], [address], [place] tel:[phone] [facility] bleeding1 (chief complaint) sleep apnea1 (chief complaint) Occult blood in stoolPrimary central sleep apneaHypertrophy of nasal turbinates 3 Ir[address] Resendiz. [address], [place], [place], [address] , [place]. tel:[phone] Referring Provider: Agg[address], [place], [place], [address]. tel:[phone] OFFICE/OUTPA TIENT VISIT, [facility], [address], [place], [place], [address], [place] tel:[phone] [facility] septum1 (chief complaint) ED (chief complaint) nausea1 (chief complaint) Hypertrophy of nasal turbinatesMale erectile dysfunction, unspecifiedPrimary central sleep apneaNausea w/o vomiting 3 Irwin Cordova [address], [place], [place], [address] , [place]. tel:[phone] Referring Provider: Agg[address], [place], [place], [address]. tel:[phone] OFFICE/OUTPA TIENT VISIT, [facility], [address], [place], [place], [address], [place] tel:[phone] [facility] sleep apnea1 (chief complaint) ED (chief complaint) Primary central sleep apneaHypertrophy of nasal turbinatesMale erectile dysfunction, unspecified 3 Irwin Resendiz. [address], [place], [place], [address] , [place]. tel:[phone] Referring Provider: Martín Gayle, [address], [place], [place], [address]. tel:[phone] OFFICE/OUTPA TIENT VISIT, [facility], [address], [place], [place], [address], [place] tel:[phone] [facility] HTN (chief complaint) ED (chief complaint) glucose1 (chief complaint) HLP (chief complaint) Mixed hyperlipidemiaPrima ry central sleep apneaEssential (primary) hypertensionHypergl ycemiaMale erectile dysfunction, unspecified 2 Ir[facility] Resendiz. [address], [place], [place], [address] , [place]. tel:[phone] Referring Provider: Aggie [address], [place], [place], [address]. tel:[phone] OFFICE/OUTPA TIENT VISIT, [facility], [address], [place], [place], [address], [place] tel:[phone] [facility] liver lesions1 (chief complaint) HTN (chief complaint) Liver diseaseMixed hyperlipidemia 2 Irwin Resendiz. [address], [place], [place], [address] , [place]. tel:[phone] Referring Provider: Martín Gayle [address], [place], [place], [address]. tel:[phone] OFFICE/OUTPA TIENT VISIT, [facility], [address], [place], [place], [address], [place] tel:[phone] [facility] abd pain1 (chief complaint) Acute appendicitis without localized peritonitisOther specified diseases of liverOther cholelithiasis without obstruction 0 2 Irwin Cordova [address], [place], [place], [address] , [place]. tel:[phone] Referring Provider: Agg[address], [place], [place], [address]. tel:[phone] OFFICE/OUTPA TIENT VISIT, [facility], [address], [place], [place], [address], [place] tel:[phone] [facility] abd pain1 (chief complaint) Umbilical herniaLower abdominal pain, unspecifiedOccult blood in stool 2 Irwin Cordova [address], [place], [place], [address] , [place]. [phone] Referring Provider: Aggie [address] [facility] [address], [place], [place], [address]. tel:[phone] OFFICE/OUTPA TIENT VISIT, [facility], [address], [place], [place], [address], [place] tel:[phone] [facility] HTN (chief complaint) sleep apnea1 (chief complaint) HLP (chief complaint) Essential (primary) hypertensionMixed hyperlipidemiaPrima ry central sleep apnea 2 Irwin Cordova [address], [place], [place], [address] , [place]. tel:[phone] Referring Provider: Aggie [address], [place], [place], [address]. tel:[phone] PREV VISIT, EST, AGE 40-64 [facility], [address], [place], [place], [address], [place] tel:[phone] [facility] physical (chief complaint) Encounter for general adult medical exam w abnormal findingsPolyp of colonEssential (primary) hypertensionMixed hyperlipidemiaPrima ry central sleep apnea 2 Irwin Cordova [address], [place], [place], [address] , [place]. tel:[phone] Referring Provider: Aggie [address], [place], [place], [address]. tel:[phone] OFFICE/OUTPA TIENT VISIT, EST [facility], [address], [place], [place], [address], [place] tel:[phone] [facility] HTN (chief complaint) HLP (chief complaint) colon polyp1 (chief complaint) Polyp of colonEssential (primary) hypertensionHyperli pidemia 1 Irwin Cordova [address], [place], [place], [address] , [place]. tel:[phone] Referring Provider: [address], [place], [place], [address]. tel:[phone] PREV VISIT, EST, AGE 40-64 [facility], [address], [place], [place], [address], [place] tel:[phone] [facility] physical (chief complaint) Encounter for general adult medical exam w abnormal findingsEssential (primary) hypertensionHyperli pidemiaHyperglycemi aPolyp of colon 1 Irwin Cordova [address], [place], [place], [address] , [place]. tel:[phone] Referring Provider: Agg[address], [place], [place], [address]. tel:[phone] PREV VISIT, EST, AGE 40-64 [facility], [address], [place], [place], [address], [place] tel:[phone] [facility] physical (chief complaint) HyperlipidemiaHyper glycemiaAthlete's footEssential (primary) hypertensionEncount er for general adult medical exam w abnormal findingsHerpes simplex infectionDisorder of penisEncounter for general adult medical examination without abnormal findings 0 Irwin Cordova [address], [place], [place], [address] , [place]. tel: [phone] Referring Provider: Aggie Jefferson, [place], [place], [address]. tel:[phone] OFFICE/OUTPA TIENT VISIT, [facility], [address], [place], [place], [address], [place] tel:[phone] [facility] Athletic foot1 (chief complaint) penile lesion1 (chief complaint) HLP (chief complaint) glucose1 (chief complaint) sick (chief complaint) Athlete's footHyperlipidemiaH yperglycemiaViral infectionDisorder of penis 0 Irwin Cordova [address], [place], [place], [address] , [place]. tel:[phone] Referring Provider: Aggie Jefferson [facility] [address], [place], [place], [address]. tel:[phone] OFFICE/OUTPA TIENT VISIT, [facility], [address] [place] [address] [address] [place], [address], [place] tel:[phone] [facility] hand rash1 (chief complaint) back pain1 (chief complaint) foot fugus1 (chief complaint) HLP (chief complaint) Athlete's footEczemaChronic pain syndromeHyperlipide leland 0 Irwin Cordova [address], [place], [place], [address] , [place]. tel:[phone] Referring Provider: Aggie Jefferson [facility] [address], [place], [place], [address]. tel:[phone] OFFICE/OUTPA TIENT VISIT, [facility], [address] [place], [address], [place] tel:[phone] [facility] chronic pain1 (chief complaint) hLP (chief complaint) glucose1 (chief complaint) foot itch (chief complaint) rash1 (chief complaint) HyperlipidemiaHyper glycemiaChronic pain syndromeEczemaAthle te's foot Fe 0 Irwin Cordova [address], [place], [place], [address] , [place]. tel:[phone] Referring Provider: Aggie [address], [place], [place], [address]. tel:[phone] OFFICE/OUTPA TIENT VISIT, [facility], [address], [place], [place], [address], [place] tel:[phone] [facility] neck pain1 (chief complaint) back pain1 (chief complaint) HTN (chief complaint) Other spondylosis, cervical regionOther spondylosis, lumbar regionEssential (primary) hypertension 9 [facility] Resendiz. [address], [place], [place], [address] , [place]. tel:[phone] Referring Provider: Aggie [address], [place], [place], [address]. tel:[phone] OFFICE/OUTPA TIENT VISIT, [facility], [address], [place], [place], [address], [place] tel:[phone] [facility] neck pain1 (chief complaint) tinea1 (chief complaint) back pain1 (chief complaint) HTN (chief complaint) Body mass index (BMI) 40.0-44.9, adultAthlete's footChronic pain syndromeRadiculopat hy, cervical regionEssential (primary) hypertension 9 Ir[address] Resendiz. [address], [place], [place], [address] , [place]. tel:[phone] Referring Provider: Aggie Jefferson [address], [place], [place], [address]. tel:[phone] OFFICE/OUTPA TIENT VISIT, [facility], [address], [place], [place], [address], [place] tel:[phone] [facility] athlete foot (chief complaint) Athlete's footFatty liverCellulitis of right lower limb 9 Ir[address] Resendiz. [address], [place], [place], [address] , [place]. tel:[phone] Referring Provider: Martín Gayle [address], [place], [place], [address]. tel:[phone] PREV VISIT, EST, AGE 40-64 [facility], [address], [place], [place], [address], [place] tel:[phone] [facility] PHysical (chief complaint) Encounter for general adult medical exam w abnormal findingsHematuriaHy perlipidemiaEssenti al (primary) hypertensionAbnorma l weight lossOtalgia, right earLumbago 9 Irwin Resendiz. [address], [place], [place], [address] , [place]. [phone] Referring Provider: Aggie Jefferson [facility] [address], [place], [place], [address]. tel:[phone] OFFICE/OUTPA TIENT VISIT, [facility], [address], [place], [place], [address], [place] tel:[phone] [facility] HLP (chief complaint) HTN (chief complaint) neck pain1 (chief complaint) wart1 (chief complaint) HyperlipidemiaRadic ulopathy, cervical regionPlantar wartEssential (primary) hypertension 9 Irwin Resendiz. [address], [place], [place], [address] , [place]. [phone] Referring Provider: Aggie [address], [place], [place], [address]. tel:[phone] OFFICE/OUTPA TIENT VISIT, EST [facility], [address], [place], [place], [address], [place] tel:[phone] [facility] hematuria1 (chief complaint) HLP (chief complaint) back pain1 (chief complaint) HematuriaHyperlipid emiaChronic pain syndrome 9 Ir[address] Resendiz. [address], [place], [place], [address] , [place]. [phone] Referring Provider: Aggie [address], [place], [place], [address]. tel:[phone] OFFICE/OUTPA TIENT VISIT, [facility], [address], [place], [place], [address], [place] tel:[phone] [facility] HTN (chief complaint) abdominal pain1 (chief complaint) HLP (chief complaint) UTI1 (chief complaint) HyperlipidemiaAbdom inal painEssential (primary) hypertensionUrinary tract infection 9 Irwin Cordova [address], [place], [place], [address] , [place]. [phone] Referring Provider: Aggie [address], [place], [place], [address]. tel:[phone] OFFICE/OUTPA TIENT VISIT, [facility], [address], [place], [place], [address], [place] tel:[phone] [facility] HTN (chief complaint) fatty liver1 (chief complaint) abd pain1 (chief complaint) HLP (chief complaint) Polyp of colonHyperlipidemia Fatty liverOther cholelithiasis without obstructionEssentia l (primary) hypertension 0 8 [address] Resendiz. [address], [place], [place], [address] , [place]. tel:[phone] Referring Provider: Aggie [address], [place], [place], [address]. tel:[phone] OFFICE/OUTPA TIENT VISIT, [facility], [address], [place], [place], [address], [place] tel:[phone] [facility] abdominal pain1 (chief complaint) HTN (chief complaint) colon polyp1 (chief complaint) Body mass index (BMI) 40.0-44.9, adultAbdominal painEssential (primary) hypertensionUmbilic al herniaPolyp of colon 8 Irwin Cordova [address], [place], [place], [address] , [place]. tel:[phone] Referring Provider: Aggie [address], [place], [place], [address]. tel:[phone] OFFICE/OUTPA TIENT VISIT, [facility], [address], [place], [place], [address], [place] tel:[phone] [facility] HTN (chief complaint) abd pain1 (chief complaint) travel1 (chief complaint) HLp (chief complaint) Essential (primary) hypertensionAbdomin al painEncounter for antibody response examinationHyperlip idemia 8 Irwin Cordova [address], [place], [place], [address] , [place]. [phone] Referring Provider: Aggie Jefferson [facility], [place], [place], [address]. tel:[phone] PREV VISIT, [facility], AGE 40-64 [facility], [address], [place], [place], [address], [place] tel:[phone] [facility] abdominal pain1 (chief complaint) HTN (chief complaint) sleep apnea1 (chief complaint) HLP (chief complaint) Abdominal painEssential (primary) hypertensionSleep apneaEncounter for general adult medical exam w abnormal findingsHyperlipide leland 8 Irwin Cordova [address], [place], [place], [address] , [place]. [phone] Referring Provider: Aggie [address], [place], [place], [address]. tel:[phone] OFFICE/OUTPA TIENT VISIT, [facility], [address], [place], [place], [address], [place] tel:[phone] [facility] HTN (chief complaint) sleep apnea1 (chief complaint) shoulder pain1 (chief complaint) Body mass index (BMI) 39.0-39.9, adultSleep apneaEssential (primary) hypertensionAnterio r chest-wall painPain in right shoulder 8 Irwin Cordova [address], [place], [place], [address] , [place]. [phone] Referring Provider: Aggie [address], [place], [place], [address]. tel:[phone] OFFICE/OUTPA TIENT VISIT, [facility], [address], [place], [place], [address], [place] tel:[phone] [facility] neck pain1 (chief complaint) weight gain1 (chief complaint) back pain1 (chief complaint) LymphadenopathyLumb agoBody mass index (BMI) 40.0-44.9, adult 8 Irwin Cordova [address], [place], [place], [address] , [place]. tel:[phone] Referring Provider: Aggie Jefferson [address], [place], [place], [address]. tel:[phone] OFFICE/OUTPA TIENT VISIT, [facility], [address], [place], [place], [address], [place] tel:[phone] [facility] HTN (chief complaint) hand numbness1 (chief complaint) sleep apnea1 (chief complaint) obesity1 (chief complaint) Sleep apneaEssential (primary) hypertensionAbnorma l weight gainParesthesia of skin 8 Irwin Cordova [address], [place], [place], [address] , [place]. tel:[phone] Referring Provider: Aggie [address], [place], [place], [address]. tel:[phone] OFFICE/OUTPA TIENT VISIT, [facility], [address], [place], [place], [address], [place] tel:[phone] [facility] sleep apnea (chief complaint) sleep apnea1 (chief complaint) back pain1 (chief complaint) obesity1 (chief complaint) Sleep apneaBody mass index (BMI) 40.0-44.9, adultLumbagoEssenti al (primary) hypertension 7 Irwin Cordova [address], [place], [place], [address] , [place]. tel:[phone] Referring Provider: Aggie Jefferson [address], [place], [place], [address]. tel:[phone] OFFICE/OUTPA TIENT VISIT, [facility], [address], [place], [place], [address], [place] [phone] [facility] HLP (chief complaint) vitamin D (chief complaint) cough1 (chief complaint) HTN (chief complaint) sleep disorder1 (chief complaint) HyperlipidemiaVitam in D deficiency, unspecifiedCoughEss ential (primary) hypertension Dec- 7 Irwin Resendiz. [address], [place], [place], [address] , [place]. tel:[phone] Referring Provider: Aggie [address], [place], [place], [address]. tel:[phone] OFFICE/OUTPA TIENT VISIT, [facility], [facility] [address], [place], [place], [address], [place] tel:[phone] [facility] cough1 (chief complaint) HTN (chief complaint) obesity1 (chief complaint) CoughEssential (primary) hypertensionBody mass index (BMI) 40.0-44.9, adult Nov- 7 Ir[address], [address], [place], [place], [id number] , [place]. [phone] Referring Provider: Aggie [address], [place], [place], [id number]. tel:[phone] OFFICE/OUTPA TIENT VISIT, [facility], [address], [place], [place], [id number], [place] tel:[phone] [facility] cough1 (chief complaint) HTN (chief complaint) Acute bronchitis, unspecifiedEssentia l (primary) hypertension 7 Irwin Resendiz. [address], [address], [place], [place], [id number] , [place]. tel:[phone] Referring Provider: Aggie [address], [place], [place], [address]. tel:[phone] PREV VISIT, NEW, AGE 40-64 [facility], [address], [place], [place], [id number], [place] tel:[phone] [facility] Medicine PHysical (chief complaint) Encounter for general adult medical exam w abnormal findingsEssential (primary) hypertensionSleep apneaAcute bronchitis, unspecified 7 Irwin Resendiz. [address], [address], [place], [place], [address] , [place]. tel:[phone] Referring Provider: Martín Gayle, [address], [place], [place], [id number]. tel:[phone] [facility], [address], [place], [place], [id number], [place] tel:[phone] [facility] No Information Irwin Resendiz. [address], [address], [place], [place], [address] , [place]. [phone] Family History Family Member Type Diagnosis Age At Onset Mother Problem (finding) Melanoma Father Problem (finding) Hypertension Mother Problem (finding) CABG 69 Father Problem (finding) ? MS Sister Problem (finding) Alive and well Payers Payer name Insurance type Covered green party ID Authoriza tion(s) [facility] CI [id number] Social History Type Description Quantity Date Captured Comments Alcohol Use Details No Caffeine Use Details Unknown Tobacco Use Status Never smoked tobacco 2024 Smoking Status Never smoker Sex Male Vital Signs Date / Time: Height Weight BMI Pulse Rate Blood Pressure Temperature Respiratory Rate Body Surface Area Head Circumference BMI percentile Pulse Ox Inhaled Ox 2:12 PM 68.00 in 253.80 lbs 38.5 9 kg/m eter (2) 70 /min 120/66 mm[Hg] 98.1 F 16 /min Chief Complaint And Reason For Visit From encounter dated 08/21/2024 14:07'. HLP (chief complaint). Description: Pt has HLP Pt takes crestor and his lipid profile is ok Pt denies any myalgia HTN (chief complaint). Description: Pt has HTN pt takes losartan and his bp is ok DM (chief complaint). Description: Pt has DM pt takes ozempic and doing well. Pt colon (chief complaint). Description: Pt has tubular adenoma. Pt diego any GI issue .Pt has marie forcolonoscopy next month Plan Of Treatment Date Type Action Status Goal Special diet education compl eted Goal Special diet education compl eted Goal Special diet education compl eted Goal Special diet education compl eted Goal Special diet education compl eted Goal Special diet education compl eted Goal Special diet education compl eted Goal Special diet education compl eted Goal Special diet education compl eted Goal Special diet education compl eted Goal Special diet education compl eted Goal Special diet education compl eted Goal Special diet education compl eted Referral Ordered: Otolaryngology (related to Hypertrophy of nasal turbinates) ordered Referral Ordered: MRI ABDOMEN W/O & W/DYE ordered Referral Ordered: ZAIRA BAKER -Allopathic & Osteopathic Physicians : Internal Medicine (related to Encounter for general adult medical exam w abnormal findings) ordered Referral Ordered: SLEEP STUDY, ATTENDED ordered Referral Referred To: ZAIRA BAKER [address], [phone] Ordered: Referrals: Allopathic & Osteopathic Physicians : Internal Medicine. ZAIRA BAKER. Evaluate and treat ordered Referral Ordered: COLONOSCOPY AND BIOPSY ordered Referral Ordered: Dermatology (related to Athlete's foot) ordered Referral Ordered: Referrals: Dermatology. Evaluate and treat ordered Referral Ordered: Pain Medicine (related to Other spondylosis, lumbar region) ordered Referral Ordered: Physical Therapy (related to Other spondylosis, lumbar region) ordered Referral Referred To: Physical Therapy Ordered: Referrals: Physical Therapy. Evaluate and treat ordered Referral Ordered: Referrals: Pain Medicine. Evaluate and treat ordered Referral Ordered: MRI LUMBAR SPINE W/O DYE ordered Referral Ordered: SANTIAGO YEAGER -Podiatric Medicine & Surgery Service Providers : Adjunct Spanish Instructor (related to Plantar wart) ordered Referral Referred To: SANTIAGO YEAGER [address] [facility] [place], [place], [phone] Ordered: Referrals: Podiatric Medicine & Surgery Service Providers : Adjunct Spanish Instructor. SANTIAGO YEAGER. Evaluate and treat ordered Referral Referred To: Mickey Neil MD [address] [place], [place], [address] Ordered: Referrals: Mickey Neil MD Evaluate and treat ordered Referral Ordered: NUC MED HIDA (HEPATOBILIARY) SCAN ordered Referral Ordered: US EXAM, ABDOM, COMPLETE ordered Referral Ordered: Sukhi Causey (related to Carpal tunnel syndrome of arm) ordered Referral Referred To: Sukhi Causey [address] [place], [place] [id number] Ordered: Referrals: Sukhi Causey. Evaluate and treat ordered Referral Ordered: CHEST X-RAY PA/LAT TWO-VIEWS ordered Referral Ordered: Otolaryngology (related to Sleep apnea) ordered Referral Ordered: Referrals: Otolaryngology. Evaluate and treat ordered Appointment Gio Grider BOOKED History Of Present Illness Encounter Date Complaint History Of Prese nt Illness HLP Pt has HLP Pt ta kes crestor and his lipid profile is ok Pt denies any myalgia HTN Pt has HTN pt ta kes losartan and his bp is ok DM Pt has DM pt spike es ozempic and doing well. Pt colon Pt has tubular a denoma. Pt diego any GI issue .Pt has marie for colonoscopy next month physical Pt needs annual physical pt has ED Pt doing ok with sildenafil PRn Pt has DM Pt is on ozempic and he is doing well Pt has been losing weight and his glucose is less than 100 Pt is very happy with ozempic Pt has HLP Pt takes crestor Pt denies any myalgia. Pt has HTN Pt takes losartan and his bp is stable Pt overall feels well Pt denies any other complaints HTN Pt has HTN Pt ta kes losartan and his bp is ok HLP pt has HLP. pt t akes crestor and lipid profile is ok. pt denies any myalgia. 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 Pt denies any polyuria, polydipsia .Pt has been taking ozempic and his glucose and A1c almost normalized .Pt denies any GI issue. Pt has been losing weight as well but plateaued while on ozempic dysuria1 Pt has been drin swati more water and his urinary symptoms resolved. His UA is ok nausea1 Pt has intermitt ent nausea. Pt has mild GERD. Pt denies any abd pain ,Pt needs zofran refilled. HTN Pt has HTN Pt ta kes losartan and his bp is stable DM Pt has DM Pt is on ozempic and he lost 25 pounds since starting ozempic. he is not checking his glucose at home Pt feels overall better with weight loss and ozempic HLP Pt has HLP Pt ta kes crestor 20 mg daily Pt denies any myalgia Pt has not done lab yet UTI1 Pt c/o acute ons et of right flank pain which doubled him over and took his breath away x 30 mins 4-5 days ago. pt states that the pain resolved completely after 45 mins pt denies any fever, chill Pt currently has some mild dysuria, mild urgency and frequency Pt denies any blood in stool Pt denies any fever, chill, nausea, vomiting. Pt states that his flank pain completely resolved several days ago .Pt has history of renal stone and he felt the same way from previous renal stone. Pt has been drinking tons of water DM Pt is on ozempic 1 mg SC weekly since one week ago Pt denies any Gi symptoms Pt could not afford free style. Pt does not want to poke his fingers for BG check. Pt denies any symptoms for hypoglycemia HLP Pt has HLP Pt ta kes crestor. Pt denies any myalgia. Pt tolerating crestor 20 mg well weight loss1 Pt has been inte ntionally losing weight with diet and exercise and ozempic. Pt denies any abd pain, nausea, vomiting, early satiety Pt has slightly suppressed appetite with ozempic HLP Pt has HLP Pt ta kes 10 mg crestor pt denies any myalgia. His LDL is not at goal GI Pt has occasiona l bloating and incomplete empty feeling .Pt denies any nausea, vomiting, diarrhea or abd pain or blood in stool DM Pt has DM <pt to lerates ozempic 0.5 mg well and he actually has been losing weight along with diet and exercise Pt denies any GI issue or bloating, or constipation or diarrhea or blood in stool HLP Pt has HLP Pt ta kes crestor his LDL is not at goal. Pt denies any myalgia DM Pt has borderlin e DM Pt denies any polyuria polydipsia Pt denies any neuropathy. GI Pt c/o feeling o f incomplete emptying after BM during the last two weeks. Pt feels bloated around abdomen Pt denies any constipation or diarrhea. Pt notices recurrent bright red blood mixed with stool for 1.5 weeks as well Pt feels gassy as well Pt denies any michael abdominal pain but he feels uncomfortable. Pt denies ay nausea, vomiting pt feels occasional heart burn during last week or so. Pt denies any daily GERD Pt denies any early satiety, loss of appetite Pt denies any postprandial issue. Pt does have tubular adenoma on colonoscopy from 2021. Pt feels abdominal crampy as well cough1 Pt c/o productiv e and dry cough x 3 weeks. Pt had a round prednisone and some keflex two weeks ago and he felt better but his symptoms returned since 4 days ago. Pt denies any sob. Pt c/o mild scratchy throat with low grade temp as high as 99, and also myalgia. Pt coughs up white and yellowish phlegm. physical Pt needs annual physical. pt has HLP Pt takes crestor .Pt denies any myalgia .Pt has HTn Pt takes losartan but he run out about one week ago and his bp is high Pt states that his bp is around 130/70 when he was on losartan. he denies any chest pain or headache pt states that rectal bleeding resolved completely and he never got to use the supp. Pt otherwise feels fine Pt denies any other complaints Pt uses cpap and doing well. Pt also needs sildenafil refilled. bleeding1 Pt c/o acute ons et of bright red blood per rectum x one week ago along with BM. Pt denies any diarrhea, abdominal pain, nausea, vomiting. GERd, bloating, fever, chill. Pt denies any constipation. Pt denies any rectal pain. Pt does notice an external hemorrhoid since last week. Pt states that he has been traveling on the road for the past week and he usually has some abnormal BM while on the road due to change of schedule and eating habit. Pt states that he has not noticed any bleeding for 2-3 days. Pt still has BM daily with only mild straining. Pt had benign colonoscopy last year which showed tubular adenoma. Pt denies any rectal trauma sleep apnea1 Pt has severe sl eep apnea with turbinate hypertrophy. Pt is s/p septoplasty recently and he is recovering well .He has been able to use cpap nightly with great effect. Pt has much less snoring and he feels more energy during the day as well septum1 Pt has rather se faisal deviated septum with turbinate hypertrophy. pt has chronic sinus congestion Pt has sleep apnea and he has difficulty breathing through the mask due to above. Pt saw ENT and he will have septal plasty and also turbinate reduction under general anesthesia due to severity of the sinus issue Pt needs surgical clearance. Pt denies any adverse reaction to anesthesia or surgery. Pt denies any chest pain or sob ED Pt has ED Pt den ies any testicular pain or atrophy or nodule Pt takes sildenafil PRN and doing well. pt denies any chest pain with sex Pt has good libido nausea1 Pt has intermitt ent nausea without vomiting for long time Pt denies any trigger factor Pt has mild GERD occasionally. pt denies any vomiting .Pt denies any abd pain Pt denies any postprandial nausea ,Pt states that it occurs randomly several times per year randomly .Pt states that usually zofran helps. 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 pt hs been using cpap for several weeks and he failed face mask and nasal masks. Pt states that he has difficulty breathing through his nose at night while using the masks. He does have some nasal congestion in general even without the cpap masks. Pt tried heated tube with humidifier but did not work either . ED Pt has ED. Pt do ing well with sildenafil pRN. Pt denies any testicular pain atrophy or nodule Pt states that sildenafil PRn works well HLP Pt has HLP, Pt alisa kumar and his lipid profile is ok Pt denies any myalgia. glucose1 Pt has mild high glucose Pt denies any polyuria ,polydipsia. ED Pt has ED. Pt de nies any testicular pain or atrophy or nodule. Pt has good libido. Pt wants sildenafil HTN Pt has HTN Pt ta kes losartan and his bp is borderline high Pt states that his bp is around 130/70 at home liver lesions1 Pt has 4 hyper e nhancing liver masses measuring up to 1.5 cm. Pt does not have any known malignancy. Pt denies any abd pain or jaundice. HTN Pt has HLP .Pt t kavon kumar .Pt denies any myalgia. abd pain1 Pt had some vagu e left side abdominal pain recently and he went to ER and Ct done which showed epiploic appendagitis of descending colon and liver mass. Pt was given cipro and flagyl and his abd pain completely resolved .Pt denies any diarrhea. Pt also has asymptomatic gallstone. Pt denies any postprandial pain abd pain1 Pt ate some chic bean at home two days ago and started to have lower abdominal cramp and pain shortly after. Pt denies any nausea, vomiting. Pt had one episode of loose stool with some small amount of bright red blood which resolved since then. Pt had more BM which was normal. Pt denies any epigastric pain .Pt still feel crampy pain around lower abdomen area as of now, which is around 5/10. Pt has mild lower abdominal bloating. Pt is passing gas and he had BM yesterday which was ok. Pt denies any sick contact, although nobody ate the same chicken. Pt denies any urinary symptoms. Pt denies any fever Pt has normal appetite. Pt denies any constipation. pt tried pepto bismo which did not help. Pt did mention that he tried to have BM multiple times on the toilet yesterday but unable to go HLP Pt has HLP Pt sa w cardiology and he was increase from crestor 10 to Crestor 20. No other cardiac work up recommended per cardiology. He denies any chest pain HTN Pt has HTN Pt ta kes losartan and his bp is borderline high today. He denies any chest pain or headache sleep apnea1 Pt has moderate sleep apnea. Pt has significant oxygen desaturation at night. pt feels fatigue Pt denies any chest pain physical Pt needs annual physical Pt has HLP pt has been taking crestor .Pt has not done lab yet pt denies any myalgia. Pt has HTN Pt takes losartan and his bp is around 130/70 at home. Pt run out of losartan one week ago and his bp is borderline high today. Pt denies any chest pain or headache. Pt has back pain Pt takes norco and he sees pain management. he feels fatigue and he does snore. he had sleep apnea in the past but insurance denied CPAP. HTN Pt has HTN Pt st ates that he run out of losartan for one week and his bp is borderline high Pt denies any chest pain or headache HLP Pt has persisten t HLP pt has not been on any statin for 6 months Pt tolerated statin well. colon polyp1 Pt has hyperplas tic polyp back in 2017 but he has history of ? tubular adenoma prior to that and he was told to repeat colonoscopy basically now Pt denies any lower GI issue . physical Pt needs annual physical. Pt has HLP Pt has been out of crestor for 6 months Pt has been diet and exercising Pt has HTN, Pt takes losartan and his bp is borderline .Pt has chronic back pain Pt has mild sciatica and leg numbness Pt denies any loss of bladder or bowel control. Pt sees pain management and he is on norco PRn. Pt has hard time losing weight. pt overall feels well Pt denies any acute complaints physical Pt needs annual physical. Pt has HLP ,Pt takes crestor and his lipid profile is ok now. Pt denies any myalgia pt has mild high glucose and A1c. Pt denies any polyuria, polydipsia. Pt has HTN. Pt takes losartan and his bp is around 130/70 at home Pt denies any chest pian or headache. Pt has persistent athletic foot. Pt failed oral anti fungal and also topical antifungal. Pt also seen by podiatry without any improvement. Pt has penile eczema. Pt doing ok with lotrisone PRN. Pt denies any other complaints sick Pt c/o viral lik e symptoms for several days. Pt feels mildly nauseated .Pt denies any vomiting or diarrhea Pt denies any abd pian. Pt denies any fever, coughing, sob, sick contact, travel ,etc penile lesion1 Pt c/o some pain and also irritation around the undersurface of his glans penis on and off. He typically notices it after intercourse and oral sex. Pt denies any pain Athletic foot1 Pt c/o recurrent athletic foot and itching and skin peeling between all toes for at least 6 months Pt tired multiple round of anti fungal topical and he also took ketoconazole orally as well. Pt states that it gets better shortly but it always returns. Pt c/o severe itching. Pt did see dermatology and was treated with cream only which did not improve HLP Pt has HLP ,Pt h as been taking crestor. Pt denies any myalgia glucose1 Pt has high gluc ose Pt denies any polyuria polydipsia . foot fugus1 Pt continues to have right foot fungus. Pt c/o itching between toes .Pt is using ketoconazole topical now and is helping. Pt failed lamisil HLP Pt has HLP pt amrik Kumar ,Pt denies any myalgia. Pt doing ok back pain1 Pt has chronic l ow back pain. Pt denies any sciatica. Pt had CT done which showed DDD Pt is seeing pain management. Pt takes norco PRN from pain management. Pt denies any worsening pain pt could not make to pain management due to acosta virus issue. Pt denies any loss of bladder control hand rash1 Pt has bilateral dorsal hand itching with rash for one week. Pt has been washing hand more due to acosta virus risk Pt notices itching and irritation bilateral dorsal hand for one week, Pt denies any bleeding chronic pain1 Pt has chronic n cain and low back pain Pt did have left radiculopathy to left hand which resolved now Pt is seeing pain management now and is getting norco and NSAID. his MRI of L spine was denied by insurance Pt has not done PT yet hLP Pt has HLP Pt amrik evans but not working glucose1 Pt has high gluc ose Pt denies any polyuria, polydipsia foot itch Pt has recurrent itchy foot and between toes for several months Pt denies any neuropathy rash1 Pt notices bumpy and cracked rash on the bottom side of glans penis for 6 months Pt notices irritation during sex, Pt denies any penile discharge ,Pt denies any history of STDs. neck pain1 Pt c/o acute ons et of neck pain for 4-5 weeks. pt c/o left radiculopathy. Pt feels that his left arm is weaker Pt notices numbness and tingling of the left arm. Pt denies any injury Pt states that prednisone did not do anything for his pain. Pt went to ER at [place] recently and he had Ct of cervical spine done but i do not have any results Pt was given toradol and muscle relaxant but did not help, Pt has been taking norco daily. CT of cervical spine showed cervical spondylosis with canal narrowing c3/4 and c5/6 with neuroforaminal narrowing. back pain1 Pt has chronic l ow back pain. Pt denies any injury Pt denies any loss of bladder control. Pt has been seeing chiropractor for back pain. Pt was told that he has DDD HTN Pt has HTN. pt t akes losartan and his bp is high Pt thinks that it is due to pain back pain1 Pt has chronic l ow back pain, Pt is seeing chiropractor Pt denies any sciatica or any leg numbness Pt denies any loss of bladder control. Pt has some lumbar disc disease per pt from chiropractor. Pt takes norco PRN for pain Pt failed NSAID and u ultram tinea1 Pt states that t inea rash on his foot resolved with lamisil and lotrisone. neck pain1 Pt c/o acute ons et of neck pain with left radiculopathy. Pt denies any weakness Pt denies any numbness or tingling. Pt c/o sharp pain radiating down to left arm from left side of neck for one week Pt did do some manual labor and pulled something heavy prior to the onset of the symptoms Pt denies any injury Pt had similar episodes recently and prednisone did help Pt has 2/10 pain now but 9/10 with movement Pt denies any headache HTN Pt has HTN. Pt t akes losartan. His BP is high. Pt denies any chest pain or headache athlete foot Pt has right 5th e toe athlete foot for 4-6 weeks, Pt c/o itching between right 4th and 5th toe and he failed OTC Tenactin. Pt then saw his courtesy van driver and he was started on ketoconazole topical for 3 weeks. Pt states that the scabbing and itching started to spread with some weeping as well Pt notices severe itching Pt notices mild swelling dorsal right foot as well, Pt c/o pain around the right foot around toes. pt denies any calf pain. Pt denies any fever. or injury PHysical Pt needs annual physical. pt has HTN pt takes losartan and BP stable pt has HLP Pt takes zetia. He denies any myalgia, Pt has hematuria Pt has not done repeat UA yet pt denies any UTi symptoms Pt denies any flank pain. Pt has been on weight watchers and he lost 10 pounds since his last visit Pt denies any abd pain, nausea, vomiting, early satiety, blood in stool. Pt denies any appetite loss. Pt c/o intermittent right ear pain for several weeks Pt denies any hearing loss Pt notices some blood drainage two weeks ago pt denies any recurrent bleeding. Pt denies any drainage. Pt states that he feels right ear canal pain when using q tip. Pt thinks that he left the ear phone inside right ear while on recent flight and fell asleep and the ear piece scratched his right ear canal. pt has intermittent low back pain for several years Pt denies any recent injury Pt denies any loss of bladder control pt denies any sciatica or any leg numbness . Pt lifted something heavy two years ago and pain started afterward. pt is seeing chiropractor now. Pt denies any worsening pain pt takes ibuprofen Pt wants some norco PRN for pain HLP Pt has HLP Pt dixon s been taking zetia and his lipid profile is normal now HTN Pt has HTN. Pt t akes losartan and his BP is stable. Pt denies any chest pain or headache wart1 Pt notices small growth under right 4th toe for several weeks. Pt denies any bleeding or any pain neck pain1 Pt c/o acute ons et of neck pain with left radiculopathy and left arm numbness for two weeks. Pt denies any injury. Pt denies any left hand weakness. Pt went to ER and he had a round of steroid and he notices significant improvement of his symptoms. Pt is about 80 % better now. back pain1 Pt has chronic i ntermittent low back pain Pt denies any sciatica or any leg numbness. Pt is seeing chiropractor and was told x ray showed some disc disease around L5. Pt has intermittent low back pain with flare up. Pt denies any injury. Pt denies any loss of bladder control. Pt injured his back 3 years ago while lifting hematuria1 Pt has hematuria , ketone and turbid urine recently. pt did have UTI symptoms which resolved now. pt states that he has not been drinking a lot of water and he drank a lot of caffeine. Pt denies any UTI symptoms. Pt denies any flank pain HLP Pt has HLP P spike es zetia. Pt has not done lab yet HTN Pt takes losarta n and his bp is stable. Pt denies any chest pain or headache abdominal pain1 Pt c/o intermitt ent abdominal pain pt denies any nausea, vomiting. Pt had negative HIDA scan. Pt went to see Dr. neil who referred him to Dr. Ward who did a EGD which was normal. Pt changed his diet and he has not had any recurrent abdominal pain. Pt denies any gerd. HLP Pt has HLP. Pt h as been taking zetia. Pt tolerating it ok. Pt denies any myalgia UTI1 Pt notices some mild burning and urgency for one week. Pt denies any penile discharge. Pt denies any fever, chill, flank pain. Pt denies any blood with urination. pt had remote UTI in the past. Pt denies any risk for STDs. fatty liver1 Pt has fatty zamzam er. Pt does not drink alcohol abd pain1 Pt has intermitt ent midepigastric pain, worse with food. Pt denies any GERD. Pt denies any acute pain. Pt has gallstone HLP Pt has HLP. Pt i s not able to diet on his own. His lipid profile is high. HTN Pt has HTN. Pt t kavon juarez. His BP is stable abdominal pain1 Pt c/o intermitt ent midepigastric abdominal pain for 3 weeks Pt c/o sharp and dull pain. Pt feels slightly nauseous but no vomiting. Pt denies any change bowel movement Pt denies any constipation. Pt denies any blood in stool. Pt has ultrasound scheduled for this morning. Pt c/o occasional GERD but not bad. Pt has chronic loose stools HTN Pt has HTN. Pt t akkaylynn benicar daily His BP is slightly high Pt denies any chest pain or headache. colon polyp1 Pt has colon bradley yp. Pt had colonoscopy two years ago and he only had one polyp and was benign per pt. Pt denies any blood in stool. Pt does have chronic loose stool but no bleeding abd pain1 Pt states that a bdominal pain resolved. Pt did not do ultrasound HTN Pt is on benicar and his bp is ok today. Pt denies any chest pain or headache travel1 Pt is going to [facility] and he wants to get hep B vaccine due to possible tattoo he plans to get in [place]. Pt had Tdap last year at [facility] Pt has been diet and exercising. Pt needs lipid profile checked sleep apnea1 Pt has sleep epic radiant analyst ea .Pt snores. Pt could not afford CPAP .Pt does not want to use CPAP at this point HLP Pt has HLP. Pt i s not really working on low fat and low carb diet HTN Pt has chronic H TN. Pt takes benicar .His BP is stable. abdominal pain1 Pt notices cramp y abdominal pain since 3 am this morning Pt denies any nausea, vomiting or diarrhea pt had some loose BM this AM without any blood. Pt has 7/10 pain. He denies any sick contact. Pt denies any recent travel. Pt denies any night sweat .Pt denies any GERD. Pt denies any radiating of pain to his back HTN Pt has HTn. Pt t akes benicar and his BP is stable. Pt denies any chest pain or headache sleep apnea1 pt has mild slee p apnea but insurance denied his CPAP machine. pt cannot afford $1000 to pay for the cpap and monitoring. shoulder pain1 Pt c/o right reji ulder pain for 2-3 days. pt denies any injury. Pt has been moving heavy furniture to prepare for open house last week and he started to notice right shoulder pain 2-3 days ago after moving for several days. pt c/o rather severe right side chest wall muscle radiating to right side of neck and to right shoulder area. Pt has sharp pain. Pt states that he has difficulty moving his right shoulder at all due to pain. pt took 800 ibuprofen but did not help. Pt also tried norco and flexeril but did not help either. pt denies any radiculopathy to right arm. Pt denies any numbness or weakness. Pt denies any neck pain. pt c/o constant 8/10 pain constantly Pt denies any injury neck pain1 Pt notices a sma ll noulde right side of neck under jaw for several days. pt denies any sore throat, ear pain, headache. pt denies any stiff neck, headadache, fever, etc weight gain1 Pt has been tryi ng to diet and exercise and he has been taking phentermine and he feels more energy and less appetite. Pt has not lost much weight yet but he feels more energy and motivation to exercise. Pt denies any chest pain, dry mouth, palpitation back pain1 Pt has chronic l ow back pain. Pt denies any sciatica Pt denies any loss of bladder control. Pt denies any recent injury. Pt states that when he lifted something 2-3 years ago and heard a pop around low back. Pt did go to chiropractice treatment and had xray done which showed bulging disc. Pt denies any numbness. Pt states that his back feels stiff and sharp pain as well. Pt has flare up 1-2 per week. HTN Pt has HTN. Pt t akes benicar and his BP is stable. 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 Pt is in the process of getting set up for CPAP. Pt does snore and he feels fatigue obesity1 Pt is obese. Pt is unable to lose weight on his own. Pt is not interested in weight loss surgery hand numbness1 Pt has bilateral hand numbness and tingling and sometimes weakness for several months. Pt states that his symptoms are worse on right hand. pt states that sometimes he wakes up at night with the symptoms and he has to flick his hand to feel better. Pt denies any hand injury sleep apnea Relevant history : a BMI of 40.63. The patient denies depression, headache, heartburn or wheezing. Additional information: Pt has HTn. Pt takes benicar and his BP is ok. Pt denies any chest pain or headache. sleep apnea1 Pt recently had sleep study which showed mild sleep apnea per patient. Pt will go back for CPAP. Pt dose snore and he feels fatigue back pain1 Pt has recurrent low back pain for several years. Pt denies any injury. Pt had flare up about one year ago. Pt did have lumbar xray which shoewed some arthritis. Pt has not had any pain until last Sunday. 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 Pt denies any loss of bladder control. Pt has been taking large amount of ibuprofen which does not help pt has 7/10 pain, worse with movement. obesity1 Pt has gained so me weight since October and his BMI is over 40 now. Pt has not been able to diet and exercise due to busy scheudule. Pt is obese sleep disorder1 Pt has chronic s nore and daytime fatigue. Pt will have sleep study done next week. HTN Pt has HTn. Pt t akes benicar and his BP is stable. Pt denies any chest pain or headache cough1 Pt startes that his cough resolved. Pt denies any chest pain or headache or sob. vitamin D Pt has low vitam in D HLP Pt has HLP Pt is trying low fat and low carb diet. His lipid profile is slightly high obesity1 Pt is obese. His BMI is over 40. Pt has been trying diet and exercise for weight loss HTN Pt has HTN Pt dixon s been taking benicar and his BP is much better today. Pt denies any chest pain cough1 Pt c/o dry and p roductive coughing for at leat 4 weeks. Pt has some clear and green phlegm Pt just finished levaquin and Zpak and prednisone Pt is on benicar now. Pt is off off lisinopril Pt states that she feels slighlty sob along with cough. Pt denies any chest pain or fever Pt denies any calf pain. Pt denies any recent travel or bedrest. Pt states that he canot sleep at night due to cough. Pt denies any dizziness. He denies any allergy symptoms HTN Pt has HTn. Pt t akes lisinopril and his BP is still high. Pt denies any chest pain or headache. cough1 Pt has dry and p roductive cough for two weeks. Pt has occassinally green phelgm. Pt denies any chest pain or sob. Pt denies any recent travel or bedrest Pt denies any calf pain. Pt took Zpak. pt states that tussionx did help but cough returns after medication wearing off. Pt denies any fever. PHysical Pt needs annual physical. Pt has colonoscopy every two years due to polyps. Pt just had colonoscopy done 2 weeks ago and he had some polyps removed and pathology pending at this point. Pt c/o chest congestion, sore throat, productive coughing for two weeks. Pt has been taking OTC meds without improvement. Pt states that his cough is disruptive his sleep now. Pt states that mucnex did not help Pt denies any chset pain or sob. Pt takes lisinorpil for HTN and his BP is slightly high today. Pt has been taking lisinopril for year. Pt stats that he snores a lot and he feels tired in the morning. Pt feels tired throughout the day also. Pt denies any other complaints Instructions Date Instruction Additional Infor narendra Special diet education Related t o Body mass index (BMI) 40.0-44.9, adult Weight management Related to Oth er spondylosis, cervical region Special diet education Related t o Body mass index (BMI) 40.0-44.9, adult Special diet education Related t o Body mass index (BMI) 40.0-44.9, adult Increase physical activity Relat ed to Athlete's foot Weight management Related to Ath lete's foot Increase physical activity Relat ed to Encounter for general adult medical exam w abnormal findings Weight management Related to Enc ounter for general adult medical exam w abnormal findings Special diet education Related t o Body mass index (BMI) 38.0-38.9, adult Special diet education Related t o Body mass index (BMI) 39.0-39.9, adult Follow a low sodium diet. Relate d to Hyperlipidemia Weight management Related to Hem aturia Special diet education Related t o Body mass index (BMI) 39.0-39.9, adult Increase physical activity Relat ed to Hematuria Special diet education Related t o Body mass index (BMI) 39.0-39.9, adult Increase activity. Related to Hy perlipidemia Follow a low sodium diet. Relate d to Hyperlipidemia Special diet education Related t o Body mass index (BMI) 40.0-44.9, adult Increase activity. Related to Hy perlipidemia Follow a low sodium diet. Relate d to Hyperlipidemia Medications as instructed Relate d to Abdominal pain Special diet education Related t o Body mass index (BMI) 40.0-44.9, adult Special diet education Related t o Body mass index (BMI) 40.0-44.9, adult Special diet education Related t o Body mass index (BMI) 40.0-44.9, adult Increase activity. Related to Es sential (primary) hypertension Follow a low sodium diet. Relate d to Essential (primary) hypertension Follow a low sodium diet. Relate d to Essential (primary) hypertension Weight management Related to Enc ounter for general adult medical exam w abnormal findings Increase physical activity Relat ed to Encounter for general adult medical exam w abnormal findings Special diet education Related t o Body mass index (BMI) 40.0-44.9, adult Weight management Related to Sle ep apnea Special diet education Related t o Body mass index (BMI) 39.0-39.9, adult Increase physical activity Relat ed to Sleep apnea Prescribed Activity and Exercise Education Related to Dietary Surveillance and Counseling Prescribed Diet Educ ation/Lifestyle Education Regarding Diet Related to Dietary Surveillance and Counseling Increase physical activity Relat ed to Lymphadenopathy Weight management Related to Lym phadenopathy Weight management Related to Sle ep apnea Increase physical activity Relat ed to Sleep apnea Prescribed Activity and Exercise Education Related to Dietary Surveillance and Counseling Prescribed Diet Educ ation/Lifestyle Education Regarding Diet Related to Dietary Surveillance and Counseling Prescribed Activity and Exercise Education Related to Dietary Surveillance and Counseling Prescribed Diet Educ ation/Lifestyle Education Regarding Diet Related to Dietary Surveillance and Counseling Increase physical activity Relat ed to Sleep apnea Weight management Related to Sle ep apnea Follow a low sodium diet. Relate d to Hyperlipidemia Prescribed Activity and Exercise Education Related to Dietary Surveillance and Counseling Increase activity. Related to Hy perlipidemia Prescribed Diet Educ ation/Lifestyle Education Regarding Diet Related to Dietary Surveillance and Counseling Increase physical activity Relat ed to Body mass index (BMI) 40.0-44.9, adult Weight management Related to Bod y mass index (BMI) 40.0-44.9, adult Prescribed Activity and Exercise Education Related to Dietary Surveillance and Counseling Prescribed Diet Educ ation/Lifestyle Education Regarding Diet Related to Dietary Surveillance and Counseling Increase activity. Related to Es sential (primary) hypertension Follow a low sodium diet. Relate d to Essential (primary) hypertension Prescribed Activity and Exercise Education Related to Dietary Surveillance and Counseling Prescribed Diet Educ ation/Lifestyle Education Regarding Diet Related to Dietary Surveillance and Counseling Prescribed Activity and Exercise Education Related to Dietary Surveillance and Counseling Prescribed Diet Educ ation/Lifestyle Education Regarding Diet Related to Dietary Surveillance and Counseling Assessments Type Assessment Date assessment Essential (primary) hypertension assessment Polyp of colon assessment Mixed hyperlipidemia assessment Type 2 diabetes mellitus without complications assessment Obstructive sleep apnea hypopnea Mental Status Date Cognitive Assessment Orientation - [place] ed to time, place, person, situation.
--- OUTSIDE RECORDS SUMMARY | 2024-09-21 23:22 | XMS_ITS | Encounter Summary ---
Author Organization [facility] Address [address] [place] [address] Care Team Providers Care Roll Out Manager Name Role Phone Martín Gayle MD Primary Care Provider [phone] Encounter Details Date Type Department Care Team (Late st Contact Info) Description 06/21/2022 Lab Requisition [facility] [address] [place] [address] Checo Sanches MD [address] [place] [address] Social History Tobacco Use Types Packs/Day Years Used Date Smoking Tobacco: Never Alcohol Use Standard Drinks/Week Comments No 0 (1 standard drink = 0.6 oz pur e alcohol) Sex and Gender Information Value Date Recorded Sex Assigned at Not on file 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 Gender Identity Not on file Sexual Orientation Not on file documented as of this encounter Plan of Treatment Not on file documented as of this encounter Procedures Procedure Name Priority Date/Time Associated Diagnosis Comments DERMATOPATHOLOGY Routine 06/20/2022 12:0 0 AM CENTRAL OFFICE REPAIRER documented in this encounter Results * DERMATOPATHOLOGY (06/20/2022 12:00 AM CENTRAL OFFICE REPAIRER) Case Report Dermatopathology Report Case: [id number] Authorizing Provider: Checo Sanches MD Collected: 06/20/2022 12:00 AM Ordering Location: [facility] Received: 06/21/2022 04:06 PM Pathologist: Darcy Victor MD Specimen: Skin, right mid helix 4:52 PM CENTRAL OFFICE REPAIRER DERMATOPATHOLOGY LABORATORY Final Diagnosis Specimen A. 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 Fibroma vs. BCCA. Path# [id number] 3 4:52 PM [facility] DERMATOPATHOLOGY LABORATORY Gross Description Specimen A: Received is one formalin filled container labeled with the patient's name and designated right mid helix. The specimen consists of a shave biopsy measuring [id number]. Jar 0. 3 4:52 PM [facility] DERMATOPATHOLOGY LABORATORY Microscopic Description Specimen A. SKIN, right mid helix: There are nests of cytologically bland melanocytes within the dermis that mature with depth. 3 4:52 PM [facility] DERMATOPATHOLOGY LABORATORY Disclaimer An external and internal positive and negative controls are appropriate for the histochemical, immunohistochemical and immunofluorescence stain(s) in this case (if any), except where stated explicitly. The performance characteristics of the stain(s) cited in this report were developed and its performance characteristic determined by the Dermatopathology Laboratory at [facility], directed by Dr. Bhupendra Koch. These tests need not be, and therefore are not, approved by the [place] Food and Drug Administration. The tests are used for clinical purposes. Billing Codes Specimen Charges Stain Charges 13730 1 3 4:52 PM [facility] DERMATOPATHOLOGY LABORATORY Embedded Images 3 4:52 PM [facility] DERMATOPATHOLOGY LABORATORY Pathology/Cytolog y TISSUE SPECIMEN FROM SKIN / Unknown 06/20/2022 06/21/2022 4:06 PM [facility] us Checo Sanches MD LAB - PATHOLOGY/CYTOLOGY ORDER JAMI Final Result DERMATOPATHOLOGY LABORATORY [facility] - Department of Dermatology [address], [address] [phone] documented in this encounter Visit Diagnoses Not on filedocumented in this encounter Care Teams Roll Out Manager Relationship Specialty Start Date End Date Martín Gayle MD PCP - General 05/18/21 documented as of this encounter
[2024-09-22] VITALS (13 sets, daily range): BP systolic 113–161; BP diastolic 67–90; PULSE 64–85; RESP 11–19; TEMP 36.4; O2SAT 93–100
--- OUTSIDE RECORDS SUMMARY | 2024-09-22 00:23 | XMS_ITS | Continuity of Care Document ---
Author Organization [facility] Address [address] [place] [address] [place] [address] Phone Care Team Providers Care All Source Intelligence Analyst Name Role Phone Martín Gayle MD Unavailable Unavailable Allergies, Adverse Reactions, Alerts Substance Reaction Status Criticality No Known Allergies Active No Inform ation Medications Medication Instructions Dosage Effective Dates (start - stop) Status Comments Ozempic 2 mg/dose (8 mg/3 mL) subcutaneous pen injector inject (2MG) by subcutaneous route every week on the same day of each week 2 MG - Active rosuvastatin 20 mg tablet take 1 tablet by oral route every day 20 MG - Active losartan 100 mg tablet take 1 tablet by oral route every day 100 MG - Active sildenafil 50 mg tablet take 1 tablet by oral route every day as directe as needed 50 MG - Active Take one orally about one hour before active, max 1/24 hour [place] 7.5 mg-325 mg tablet take 1 tablet [...] Copied on Encounter OFFICE/OUTPA TIENT VISIT, EST [facility], [address], [place], [place], [address], [place] tel:[phone] [facility] HLP (chief complaint) HTN (chief complaint) DM (chief complaint) colon (chief complaint) Essential (primary) hypertensionPolyp of colonMixed hyperlipidemiaType 2 diabetes mellitus without complicationsObstru ctive sleep apnea hypopnea 5 Irwin Resendiz. [address], [place], [place], [address] , [place]. tel:[phone] PREV VISIT, EST, AGE 40-64 [facility], [address], [place], [place], [address], [place] tel:[phone] [facility] physical (chief complaint) Encounter for general adult medical exam w abnormal findingsEssential (primary) hypertensionAbnorma l weight lossMixed hyperlipidemiaMale erectile dysfunction, unspecifiedPolyp of colonType 2 diabetes mellitus without complications 4 Irwin Resendiz. [address], [place], [place], [address] , [place]. [phone] OFFICE/OUTPA TIENT VISIT, EST [facility], [address], [place], [place], [address], [place] tel:[phone] [facility] HTN (chief complaint) HLP (chief complaint) sleep apnea1 (chief complaint) DM (chief complaint) Essential (primary) hypertensionType 2 diabetes mellitus without complicationsMixed hyperlipidemiaObstr uctive sleep apnea hypopneaAbnormal weight loss 4 Irwin Resendiz. [address], [place], [place], [address] , [place]. [phone] OFFICE/OUTPA TIENT VISIT, EST [facility], [address], [place], [place], [address], [place] tel:[phone] [facility] HLP (chief complaint) DM (chief complaint) HTN (chief complaint) nausea1 (chief complaint) dysuria1 (chief complaint) DysuriaMixed hyperlipidemiaType 2 diabetes mellitus without complicationsAbnorm al weight lossGERD w/o esophagitisEssentia l (primary) hypertension 4 Irwin Resendiz. [address], [address] , [place]. tel:[phone] OFFICE/OUTPA TIENT VISIT, [facility], [address], [address], [place] tel:[phone] [facility] UTI1 (chief complaint) DM (chief complaint) HLP (chief complaint) DysuriaType 2 diabetes mellitus without complicationsAbdomi nal painMixed hyperlipidemia 4 Irwin Resendiz. [address] [place], [address] , [place]. tel:[phone] OFFICE/OUTPA TIENT VISIT, [facility], [address], [address], [place] tel:[phone] [facility] HLP (chief complaint) GI (chief complaint) DM (chief complaint) weight loss1 (chief complaint) Mixed hyperlipidemiaType 2 diabetes mellitus without complicationsAbnorm al weight lossIrritable bowel syndrome 4 Irwin Resendiz. [address] [place], [address] , [place]. tel:[phone] OFFICE/OUTPA TIENT VISIT, [facility], [address], [address], [place] tel:[phone] [facility] DM (chief complaint) HLP (chief complaint) GI (chief complaint) Type 2 diabetes mellitus without complicationsIrrita ble bowel syndromeMixed hyperlipidemiaOccul t blood in stool 4 Irwin Resendiz. [address] [place], [address] , [place]. [phone] OFFICE/OUTPA TIENT VISIT, [facility], [address] [place], [address], [place] tel:[phone] [facility] cough1 (chief complaint) Acute bronchitis 3 Irwin Resendiz. [address], [place], [place], [address] , [place]. tel:[phone] PREV VISIT, EST, AGE 40-64 [facility], [address], [place], [place], [address], [place] tel:[phone] [facility] physical (chief complaint) Encounter for general adult medical exam w abnormal findingsOccult blood in stoolMale erectile dysfunction, unspecifiedMixed hyperlipidemiaEssen tial (primary) hypertensionPrimary central sleep apnea 3 Irwin Resendiz. [address], [place], [place], [address] , [place]. tel:[phone] OFFICE/OUTPA TIENT VISIT, [facility], [address], [place], [place], [address], [place] tel:[phone] [facility] bleeding1 (chief complaint) sleep apnea1 (chief complaint) Occult blood in stoolPrimary central sleep apneaHypertrophy of nasal turbinates 3 Irwin Resendiz. [address], [place], [place], [address] , [place]. tel:[phone] Referring Provider: [address], [place], [place], [address]. tel:[phone] OFFICE/OUTPA TIENT VISIT, [facility], [address], [place], [place], [address], [place] tel:[phone] [facility] septum1 (chief complaint) ED (chief complaint) nausea1 (chief complaint) Hypertrophy of nasal turbinatesMale erectile dysfunction, unspecifiedPrimary central sleep apneaNausea w/o vomiting 3 Irwin Cordova [address], [place], [place], [address] , [place]. tel:[phone] Referring Provider: [address], [place], [place], [address]. tel:[phone] OFFICE/OUTPA TIENT VISIT, [facility], [address], [place], [place], [address], [place] tel:[phone] [facility] sleep apnea1 (chief complaint) ED (chief complaint) Primary central sleep apneaHypertrophy of nasal turbinatesMale erectile dysfunction, unspecified 3 Irwin Resendiz. [address], [place], [place], [address] , [place]. tel:[phone] Referring Provider: Martín Gayle, [address], [place], [place], [address]. tel:[phone] OFFICE/OUTPA TIENT VISIT, [facility], [address], [place], [place], [address], [place] tel:[phone] [facility] HTN (chief complaint) ED (chief complaint) glucose1 (chief complaint) HLP (chief complaint) Mixed hyperlipidemiaPrima ry central sleep apneaEssential (primary) hypertensionHypergl ycemiaMale erectile dysfunction, unspecified 2 Irwin Resendiz. [address], [place], [address] , [place]. tel:[phone] Referring Provider: Aggie [address], [place], [place], [address]. tel:[phone] OFFICE/OUTPA TIENT VISIT, [facility], [address], [place], [place], [address], [place] tel:[phone] [facility] liver lesions1 (chief complaint) HTN (chief complaint) Liver diseaseMixed hyperlipidemia 2 Irwin Resendiz. [address], [place], [place], [address] , [place]. tel:[phone] Referring Provider: Martín Gayle [address], [place], [place], [address]. tel:[phone] OFFICE/OUTPA TIENT VISIT, [facility], [address], [place], [place], [address], [place] tel:[phone] [facility] abd pain1 (chief complaint) Acute appendicitis without localized peritonitisOther specified diseases of liverOther cholelithiasis without obstruction 0 2 Irwin Cordova [address], [place], [place], [address] , [place]. tel:[phone] Referring Provider: [address], [place], [place], [address]. tel:[phone] OFFICE/OUTPA TIENT VISIT, [facility], [address], [place], [place], [address], [place] tel:[phone] [facility] abd pain1 (chief complaint) Umbilical herniaLower abdominal pain, unspecifiedOccult blood in stool 2 Irwin Cordova [address], [place], [address] , [place]. [phone] Referring Provider: Aggie Jefferson [address] [facility] A, [place], [place], [address]. tel:[phone] OFFICE/OUTPA TIENT VISIT, [facility], [address], [place], [place], [address], [place] tel:[phone] [facility] HTN (chief complaint) sleep apnea1 (chief complaint) HLP (chief complaint) Essential (primary) hypertensionMixed hyperlipidemiaPrima ry central sleep apnea 2 Irwin Cordova [address], [place], [place], [address] , [place]. tel:[phone] Referring Provider: Aggie [address], [place], [place], [address]. tel:[phone] PREV VISIT, EST, AGE 40-64 [facility], [address], [place], [place], [address], [place] tel:[phone] [facility] physical (chief complaint) Encounter for general adult medical exam w abnormal findingsPolyp of colonEssential (primary) hypertensionMixed hyperlipidemiaPrima ry central sleep apnea 2 Irwin Cordova [address], [place], [address] , [place]. tel:[phone] Referring Provider: gAgie [address], [place], [place], [address]. tel:[phone] OFFICE/OUTPA TIENT VISIT, EST [facility], [address], [place], [place], [address], [place] tel:[phone] [facility] HTN (chief complaint) HLP (chief complaint) colon polyp1 (chief complaint) Polyp of colonEssential (primary) hypertensionHyperli pidemia 1 Irwin Cordova [address], [place], [place], [address] , [place]. tel:[phone] Referring Provider: [address], [place], [address]. tel:[phone] PREV VISIT, EST, AGE 40-64 [facility], [address], [place], [place], [address], [place] tel:[phone] [facility] physical (chief complaint) Encounter for general adult medical exam w abnormal findingsEssential (primary) hypertensionHyperli pidemiaHyperglycemi aPolyp of colon 1 Irwin Cordova [address], [place], [place], [address] , [place]. tel:[phone] Referring Provider: [address], [place], [place], [address]. tel:[phone] PREV VISIT, EST, AGE 40-64 [facility], [address], [place], [place], [address], [place] tel:[phone] [facility] physical (chief complaint) HyperlipidemiaHyper glycemiaAthlete's footEssential (primary) hypertensionEncount er for general adult medical exam w abnormal findingsHerpes simplex infectionDisorder of penisEncounter for general adult medical examination without abnormal findings 0 Irwin Cordova [address], [place], [place], [address] , [place]. tel:[phone] Referring Provider: Aggie Jefferson, [place], [address]. tel:[phone] OFFICE/OUTPA TIENT VISIT, [facility], [address], [place], [place], [address], [place] tel:[phone] [facility] Athletic foot1 (chief complaint) penile lesion1 (chief complaint) HLP (chief complaint) glucose1 (chief complaint) sick (chief complaint) Athlete's footHyperlipidemiaH yperglycemiaViral infectionDisorder of penis 0 Irwin Cordova [address], [place], [place], [address] , [place]. tel:[phone] Referring Provider: Aggie Jefferson [facility] [address], [place], [place], [address]. tel:[phone] OFFICE/OUTPA TIENT VISIT, [facility], [address] [place] [address] [address] [place], [address], [place] tel:[phone] [facility] hand rash1 (chief complaint) back pain1 (chief complaint) foot fugus1 (chief complaint) HLP (chief complaint) Athlete's footEczemaChronic pain syndromeHyperlipide leland 0 Irwin Cordova [address], [place], [place], [address] , [place]. tel:[phone] Referring Provider: Aggie Jefferson [facility] [address], [place], [place], [address]. tel:[phone] OFFICE/OUTPA TIENT VISIT, [facility], [address] [place], [address], [place] tel:[phone] [facility] chronic pain1 (chief complaint) hLP (chief complaint) glucose1 (chief complaint) foot itch (chief complaint) rash1 (chief complaint) HyperlipidemiaHyper glycemiaChronic pain syndromeEczemaAthle te's foot Fe 0 Irwin Cordova [address], [place], [place], [address] , [place]. tel:[phone] Referring Provider: Aggie [address], [place], [place], [address]. tel:[phone] OFFICE/OUTPA TIENT VISIT, [facility], [address], [place], [place], [address], [place] tel:[phone] [facility] neck pain1 (chief complaint) back pain1 (chief complaint) HTN (chief complaint) Other spondylosis, cervical regionOther spondylosis, lumbar regionEssential (primary) hypertension 9 Irwin Resendiz. [address], [place], [place], [address] , [place]. tel:[phone] Referring Provider: Aggie [address], [place], [place], [address]. tel:[phone] OFFICE/OUTPA TIENT VISIT, [facility], [address], [place], [place], [address], [place] tel:[phone] [facility] neck pain1 (chief complaint) tinea1 (chief complaint) back pain1 (chief complaint) HTN (chief complaint) Body mass index (BMI) 40.0-44.9, adultAthlete's footChronic pain syndromeRadiculopat hy, cervical regionEssential (primary) hypertension 9 Irwin Resendiz. [address], [place], [place], [address] , [place]. tel:[phone] Referring Provider: Aggie [address], [place], [place], [address]. tel:[phone] OFFICE/OUTPA TIENT VISIT, [facility], [address], [place], [place], [address], [place] tel:[phone] [facility] athlete foot (chief complaint) Athlete's footFatty liverCellulitis of right lower limb 9 Irwin Resendiz. [address], [place], [place], [address] , [place]. tel:[phone] Referring Provider: Martín Gayle [address], [place], [place], [address]. tel:[phone] PREV VISIT, EST, AGE 40-64 [facility], [address], [place], [place], [address], [place] tel:[phone] [facility] PHysical (chief complaint) Encounter for general adult medical exam w abnormal findingsHematuriaHy perlipidemiaEssenti al (primary) hypertensionAbnorma l weight lossOtalgia, right earLumbago 9 Irwin Resendiz. [address], [place], [place], [address] , [place]. [phone] Referring Provider: Aggie Jefferson [facility] [address], [place], [place], [address]. tel:[phone] OFFICE/OUTPA TIENT VISIT, [facility], [address], [place], [place], [address], [place] tel:[phone] [facility] HLP (chief complaint) HTN (chief complaint) neck pain1 (chief complaint) wart1 (chief complaint) HyperlipidemiaRadic ulopathy, cervical regionPlantar wartEssential (primary) hypertension 9 Irwin Resendiz. [address], [place], [place], [address] , [place]. [phone] Referring Provider: [address], [place], [place], [address]. tel:[phone] OFFICE/OUTPA TIENT VISIT, EST [facility], [address], [place], [place], [address], [place] tel:[phone] [facility] hematuria1 (chief complaint) HLP (chief complaint) back pain1 (chief complaint) HematuriaHyperlipid emiaChronic pain syndrome 9 Irwin Resendiz. [address], [place], [place], [address] , [place]. [phone] Referring Provider: [address], [place], [address]. tel:[phone] OFFICE/OUTPA TIENT VISIT, [facility], [address], [place], [place], [address], [place] tel:[phone] [facility] HTN (chief complaint) abdominal pain1 (chief complaint) HLP (chief complaint) UTI1 (chief complaint) HyperlipidemiaAbdom inal painEssential (primary) hypertensionUrinary tract infection 9 Irwin Cordova [address], [place], [place], [address] , [place]. [phone] Referring Provider: Aggie [address], [place], [place], [address]. tel:[phone] OFFICE/OUTPA TIENT VISIT, [facility], [address], [place], [place], [address], [place] tel:[phone] [facility] HTN (chief complaint) fatty liver1 (chief complaint) abd pain1 (chief complaint) HLP (chief complaint) Polyp of colonHyperlipidemia Fatty liverOther cholelithiasis without obstructionEssentia l (primary) hypertension 0 8 Irwin Resendiz. [address], [place], [place], [address] , [place]. tel:[phone] Referring Provider: Aggie [address], [place], [place], [address]. tel:[phone] OFFICE/OUTPA TIENT VISIT, [facility], [address], [place], [place], [address], [place] tel:[phone] [facility] abdominal pain1 (chief complaint) HTN (chief complaint) colon polyp1 (chief complaint) Body mass index (BMI) 40.0-44.9, adultAbdominal painEssential (primary) hypertensionUmbilic al herniaPolyp of colon 8 Irwin Cordova [address], [place], [place], [address] , [place]. tel:[phone] Referring Provider: Aggie [address], [place], [place], [address]. tel:[phone] OFFICE/OUTPA TIENT VISIT, [facility], [address], [place], [place], [address], [place] tel:[phone] [facility] HTN (chief complaint) abd pain1 (chief complaint) travel1 (chief complaint) HLp (chief complaint) Essential (primary) hypertensionAbdomin al painEncounter for antibody response examinationHyperlip idemia 8 Irwin Cordova [address], [place], [place], [address] , [place]. [phone] Referring Provider: Aggie Jefferson [facility] A, [place], [place], [address]. tel:[phone] PREV VISIT, [facility], AGE 40-64 [facility], [address], [place], [place], [address], [place] tel:[phone] [facility] abdominal pain1 (chief complaint) HTN (chief complaint) sleep apnea1 (chief complaint) HLP (chief complaint) Abdominal painEssential (primary) hypertensionSleep apneaEncounter for general adult medical exam w abnormal findingsHyperlipide leland 8 Irwin Cordova [address], [place], [place], [address] , [place]. [phone] Referring Provider: [address]ie [address], [place], [place], [address]. tel:[phone] OFFICE/OUTPA TIENT VISIT, [facility], [address], [place], [place], [address], [place] tel:[phone] [facility] HTN (chief complaint) sleep apnea1 (chief complaint) shoulder pain1 (chief complaint) Body mass index (BMI) 39.0-39.9, adultSleep apneaEssential (primary) hypertensionAnterio r chest-wall painPain in right shoulder 8 Irwin Cordova [address], [place], [place], [address] , [place]. [phone] Referring Provider: [address]ie [address], [place], [place], [address]. tel:[phone] OFFICE/OUTPA TIENT VISIT, [facility], [address], [place], [place], [address], [place] tel:[phone] [facility] neck pain1 (chief complaint) weight gain1 (chief complaint) back pain1 (chief complaint) LymphadenopathyLumb agoBody mass index (BMI) 40.0-44.9, adult 8 Irwin Cordova [address], [place], [address] , [place]. tel:[phone] Referring Provider: Aggie [address], [place], [place], [address]. tel:[phone] OFFICE/OUTPA TIENT VISIT, [facility], [address], [place], [place], [address], [place] tel:[phone] [facility] HTN (chief complaint) hand numbness1 (chief complaint) sleep apnea1 (chief complaint) obesity1 (chief complaint) Sleep apneaEssential (primary) hypertensionAbnorma l weight gainParesthesia of skin 8 Irwin Cordova [address], [place], [address] , [place]. tel:[phone] Referring Provider: [address], [place], [address]. tel:[phone] OFFICE/OUTPA TIENT VISIT, [facility], [address], [place], [place], [address], [place] tel:[phone] [facility] sleep apnea (chief complaint) sleep apnea1 (chief complaint) back pain1 (chief complaint) obesity1 (chief complaint) Sleep apneaBody mass index (BMI) 40.0-44.9, adultLumbagoEssenti al (primary) hypertension 7 Irwin Cordova [address], [place], [place], [address] , [place]. tel:[phone] Referring Provider: Aggie [address], [place], [place], [address]. tel:[phone] OFFICE/OUTPA TIENT VISIT, [facility], [address], [place], [place], [address], [place] [phone] [facility] HLP (chief complaint) vitamin D (chief complaint) cough1 (chief complaint) HTN (chief complaint) sleep disorder1 (chief complaint) HyperlipidemiaVitam in D deficiency, unspecifiedCoughEss ential (primary) hypertension Dec- 7 Irwin Resendiz. [address], [place], [address] , [place]. tel:[phone] Referring Provider: Aggie [address], [place], [place], [address]. tel:[phone] OFFICE/OUTPA TIENT VISIT, [facility], [facility] [address], [place], [place], [address], [place] tel:[phone] [facility] cough1 (chief complaint) HTN (chief complaint) obesity1 (chief complaint) CoughEssential (primary) hypertensionBody mass index (BMI) 40.0-44.9, adult Nov- 7 Irwin Resendiz. [address], [place], [place], [address] , [place]. [phone] Referring Provider: Aggie [address], [place], [place], [address]. tel:[phone] OFFICE/OUTPA TIENT VISIT, [facility], [address], [place], [place], [address], [place] tel:[phone] [facility] cough1 (chief complaint) HTN (chief complaint) Acute bronchitis, unspecifiedEssentia l (primary) hypertension 7 Irwin Resendiz. [address], [place], [place], [address] , [place]. tel:[phone] Referring Provider: Aggie [address], [place], [address]. tel:[phone] PREV VISIT, NEW, AGE 40-64 [facility], [address], [place], [place], [address], [place] tel:[phone] [facility] PHysical (chief complaint) Encounter for general adult medical exam w abnormal findingsEssential (primary) hypertensionSleep apneaAcute bronchitis, unspecified 7 Irwin Resendiz. [address], [place], [place], [address] , [place]. tel:[phone] Referring Provider: Martín Gayle, [address], [place], [place], [address]. tel:[phone] [facility], [address], [place], [address], [place] tel:[phone] [facility] No Information Irwin Resendiz. [address], [place], [place], [address] , [place]. [phone] Family History Family Member Type Diagnosis Age At Onset Mother Problem (finding) Melanoma Father Problem (finding) Hypertension Mother Problem (finding) CABG 69 Father Problem (finding) ? MS Sister Problem (finding) Alive and well Payers Payer name Insurance type Covered republican ID Authoriza tion(s) [facility] CI [id number] Social History Type Description Quantity Date Captured [...] ordered Referral Referred To: ZAIRA BAKER [address], [id number] Ordered: Referrals: Allopathic & Osteopathic Physicians : [...] -Podiatric Medicine & Surgery Service Providers : Product Support Specialist (related to Plantar wart) ordered Referral Referred To: SANTIAGO YEAGER [address] [facility],[address] [place], [place], [id number] Ordered: Referrals: Podiatric Medicine & Surgery Service Providers : Product Support Specialist. SANTIAGO YEAGER. Evaluate and treat ordered Referral Referred To: Mickey Gillespie MD [address] [place], [place], [id number] Ordered: Referrals: Mickey Gillespie MD Evaluate and treat ordered Referral Ordered: NUC MED HIDA (HEPATOBILIARY) SCAN ordered Referral Ordered: US EXAM, ABDOM, COMPLETE ordered Referral Ordered: Sukhi Causey (related to Carpal tunnel syndrome of arm) ordered Referral Referred To: Sukhi Causey [address] [place], [place] [id number] Ordered: Referrals: Sukhi Causey. Evaluate and treat [...] any myalgia. sleep apnea1 Pt has sleep chicken sexer ea Pt has not been using cpap [...] as well but plateaued while on ozempic HLP Pt has HLP Pt ta kes crestor 20 mg daily Pt denies any myalgia Pt has not done lab yet DM Pt has DM Pt is on ozempic and he lost 25 pounds since starting ozempic. he is not checking his glucose at home Pt feels overall better with weight loss and ozempic HTN Pt has HTN Pt ta kes losartan and his bp is stable nausea1 Pt has intermitt ent nausea. Pt has mild GERD. Pt denies any abd pain ,Pt needs zofran refilled. dysuria1 Pt has been drin swati more water and his urinary symptoms resolved. His UA is ok UTI1 Pt c/o acute ons et of [...] myalgia. Pt tolerating crestor 20 mg well HLP Pt has HLP Pt ta kes [...] constipation or diarrhea or blood in stool weight loss1 Pt has been inte ntionally [...] years ago sleep apnea1 Pt has sleep chicken sexer ea. pt hs been using cpap for [...] Pt states that sildenafil PRn works well HTN Pt has HTN Pt ta kes losartan and his bp is borderline high Pt states that his bp is around 130/70 at home ED Pt has ED. Pt de nies any testicular pain or atrophy or nodule. Pt has good libido. Pt wants sildenafil glucose1 Pt has mild high glucose Pt denies any polyuria ,polydipsia. HLP Pt has HLP, Pt alisa garcia and his lipid profile is ok Pt denies any myalgia. liver lesions1 Pt has 4 hyper e nhancing liver masses measuring up to 1.5 cm. Pt does not have any known malignancy. Pt denies any abd pain or jaundice. HTN Pt has HLP .Pt t kavon garcia .Pt denies any myalgia. abd pain1 Pt [...] lotrisone PRN. Pt denies any other complaints penile lesion1 Pt c/o some pain and also irritation around the undersurface of his glans penis on and off. He typically notices it after intercourse and oral sex. Pt denies any pain sick Pt c/o viral lik e symptoms for several days. Pt feels mildly nauseated .Pt denies any vomiting or diarrhea Pt denies any abd pian. Pt denies any fever, coughing, sob, sick contact, travel ,etc HLP Pt has HLP ,Pt h as been taking crestor. Pt denies any myalgia glucose1 Pt has high gluc ose Pt denies any polyuria polydipsia . Athletic foot1 Pt c/o recurrent athletic foot [...] with cream only which did not improve back pain1 Pt has chronic l ow back pain. Pt denies any sciatica. Pt had CT done which showed DDD Pt is seeing pain management. Pt takes norco PRN from pain management. Pt denies any worsening pain pt could not make to pain management due to acosta virus issue. Pt denies any loss of bladder control foot fugus1 Pt continues to have right foot fungus. Pt c/o itching between toes .Pt is using ketoconazole topical now and is helping. Pt failed lamisil HLP Pt has HLP pt amrik Garcia ,Pt denies any myalgia. Pt doing ok hand rash1 Pt has bilateral dorsal hand [...] his pain. Pt went to ER at [facility] recently and he had Ct of cervical [...] thinks that it is due to pain neck pain1 Pt c/o acute ons [...] 9/10 with movement Pt denies any headache tinea1 Pt states that t inea rash on his foot resolved with lamisil and lotrisone. back pain1 Pt has chronic l ow back pain, Pt is seeing chiropractor Pt denies any sciatica or any leg numbness Pt denies any loss of bladder control. Pt has some lumbar disc disease per pt from chiropractor. Pt takes norco PRN for pain Pt failed NSAID and u ultram HTN Pt has HTN. Pt t akes losartan. His BP is high. Pt denies any chest pain or headache athlete foot Pt has right 5th e toe athlete foot for 4-6 weeks, Pt c/o itching between right 4th and 5th toe and he failed OTC Tenactin. 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 Pt went to see Dr. gillespie who referred him to Dr. Ward who [...] past. Pt denies any risk for STDs. HTN Pt has HTN. Pt t akes benicar. His BP is stable fatty liver1 Pt has fatty zamzam er. Pt does not drink alcohol abd pain1 Pt has intermitt ent midepigastric pain, worse with food. Pt denies any GERD. Pt denies any acute pain. Pt has gallstone HLP Pt has HLP. Pt i s not able to diet on his own. His lipid profile is high. abdominal pain1 Pt c/o intermitt ent midepigastric [...] stools HTN Pt has HTN. Pt t akes benicar daily His BP is slightly high Pt denies any chest pain or headache. colon polyp1 Pt has colon bradley yp. Pt had colonoscopy two years ago and he only had one polyp and was benign per pt. Pt denies any blood in stool. Pt does have chronic loose stool but no bleeding HTN Pt is on benicar and his bp is ok today. Pt denies any chest pain or headache abd pain1 Pt states that a bdominal pain resolved. Pt did not do ultrasound travel1 Pt is going to [facility] and he wants to get hep B vaccine due to possible tattoo he plans to get in [place]. Pt had Tdap last year at ER [facility]p Pt has been diet and exercising. Pt needs lipid profile checked sleep apnea1 Pt has sleep chicken sexer ea .Pt snores. Pt could not afford [...] is stable. sleep apnea1 Pt has sleep chicken sexer ea. Pt is in the process of [...] due to busy scheudule. Pt is obese HLP Pt has HLP Pt is trying low fat and low carb diet. His lipid profile is slightly high vitamin D Pt has low vitam in D cough1 Pt startes that his cough resolved. Pt denies any chest pain or headache or sob. HTN Pt has HTn. Pt t akes benicar and his BP is stable. Pt denies any chest pain or headache sleep disorder1 Pt has chronic s nore and daytime fatigue. Pt will have sleep study done next week. obesity1 Pt is obese. His BMI is [...] any dizziness. He denies any allergy symptoms cough1 Pt has dry and p roductive cough for two weeks. Pt has occassinally green phelgm. Pt denies any chest pain or sob. Pt denies any recent travel or bedrest Pt denies any calf pain. Pt took Zpak. pt states that tussionx did help but cough returns after medication wearing off. Pt denies any fever. HTN Pt has HTn. Pt t akes lisinopril and his BP is still high. Pt denies any chest pain or headache. PHysical Pt needs annual physical. Pt has [...] Increase physical activity Relat ed to Hematuria Weight management Related to Hem aturia Special [...] o Body mass index (BMI) 40.0-44.9, adult Medications as instructed Relate d to Abdominal pain Special diet education Related t o Body mass index (BMI) 40.0-44.9, adult Special diet education Related t o Body mass index (BMI) 40.0-44.9, adult Increase activity. Related to Es sential (primary) hypertension Follow a low sodium diet. Relate d to Essential (primary) hypertension Follow a low sodium diet. Relate d to Essential (primary) hypertension Increase physical activity Relat ed to Encounter [...] Weight management Related to Sle ep apnea Prescribed Activity and Exercise Education Related to Dietary Surveillance and Counseling Prescribed Diet Educ ation/Lifestyle Education Regarding Diet Related to Dietary Surveillance and Counseling Increase physical activity Relat ed to Lymphadenopathy Weight management Related to Lym phadenopathy Increase physical activity Relat ed to Sleep apnea Weight management Related to Sle ep apnea Prescribed Activity and Exercise Education Related [...] Weight management Related to Sle ep apnea Prescribed Activity and Exercise Education Related to Dietary Surveillance and Counseling Prescribed Diet Educ ation/Lifestyle Education Regarding Diet Related to Dietary Surveillance and Counseling Increase activity. Related to Hy perlipidemia Follow a low sodium diet. Relate d to Hyperlipidemia Increase physical activity Relat ed to Body [...] Mental Status Date Cognitive Assessment Orientation - [place] ed to time, place, person, situation.
--- OUTSIDE RECORDS SUMMARY | 2024-09-22 00:23 | XMS_ITS | Clinical Summary ---
Author Organization [facility] Address [address] [place] [address] Care Team Providers Care Mime Artist Name Role Phone Martín Gayle MD Primary Care Provider [phone] Source Comments [facility],non-owned Affiliates and Associated Physician Practices is amultiple site organization consisting of ambulatory clinics and hospital sitesin [place], [place], [place] and [place]. This disclosure is being madepursuant to the Care Everywhere program and may not contain all information available regarding this patient. 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
--- OUTSIDE RECORDS SUMMARY | 2024-09-22 00:23 | XMS_ITS | Encounter Summary ---
Author Organization [facility] Address [address] [place] [address] Care Team Providers Care Faceter Name Role Phone Martín Gayle MD Primary Care Provider [phone] Encounter Details Date Type Department Care Team (Late st Contact Info) Description 06/21/2022 Lab Requisition 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 Gender Identity Not on file Sexual Orientation Not on file documented as of this encounter Plan of Treatment Not on file documented as of this encounter Procedures Procedure Name Priority Date/Time Associated Diagnosis Comments DERMATOPATHOLOGY Routine 06/20/2022 12:0 0 AM OUTREACH AND EDUCATION SOCIAL WORKER documented in this encounter Results * DERMATOPATHOLOGY (06/20/2022 12:00 AM OUTREACH AND EDUCATION SOCIAL WORKER) Case Report Dermatopathology Report Case: [id number] Authorizing Provider: Checo Sanches MD Collected: 06/20/2022 12:00 AM Ordering Location: [facility] Received: 06/21/2022 04:06 PM Pathologist: Darcy Victor MD Specimen: Skin, right mid helix 4:52 PM OUTREACH AND EDUCATION SOCIAL WORKER DERMATOPATHOLOGY LABORATORY Final Diagnosis Specimen A. SKIN, right mid helix: INTRADERMAL MELANOCYTIC NEVUS (D22.21) 3 4:52 PM [facility] DERMATOPATHOLOGY LABORATORY at [address] OUTREACH AND EDUCATION SOCIAL WORKER Clinical History Nevus vs. Fibroma vs. BCCA. Path# [id number] 3 4:52 PM [facility] DERMATOPATHOLOGY LABORATORY Gross Description Specimen A: Received is one formalin filled container labeled with the patient's name and designated right mid helix. The specimen consists of a shave biopsy measuring [id number]. Jar 0. 3 4:52 PM [facility] DERMATOPATHOLOGY LABORATORY Microscopic Description Specimen A. SKIN, right mid helix: There are nests of cytologically bland melanocytes within the dermis that mature with depth. 3 4:52 PM [facility] DERMATOPATHOLOGY LABORATORY Disclaimer An external and internal positive and negative controls are appropriate for the histochemical, immunohistochemical and immunofluorescence stain(s) in this case (if any), except where stated explicitly. The performance characteristics of the stain(s) cited in this report were developed and its performance characteristic determined by the Dermatopathology Laboratory at [facility], directed by Dr. Bhupendra Koch. These tests need not be, and therefore are not, approved by the [place] Food and Drug Administration. The tests are used for clinical purposes. Billing Codes Specimen Charges Stain Charges 07526 1 3 4:52 PM [facility] DERMATOPATHOLOGY LABORATORY Embedded Images 3 4:52 PM [facility] DERMATOPATHOLOGY LABORATORY Pathology/Cytolog y TISSUE SPECIMEN FROM SKIN / Unknown 06/20/2022 06/21/2022 4:06 PM [facility] us Checo Sanches MD LAB - PATHOLOGY/CYTOLOGY ORDER JAMI Final Result DERMATOPATHOLOGY LABORATORY [facility] - Department of Dermatology [address], [address] [phone] documented in this encounter Visit Diagnoses Not on filedocumented in this encounter Care Teams Faceter Relationship Specialty Start Date End Date Martín Gayle MD PCP - General 05/18/21 documented as of this encounter
[2024-09-22 00:25] LABS: Basophils Absolute Auto 0.1 K/mm3 (0.0-0.1); Basophils Percent Auto 0.6 % (0.2-1.2); Eosinophils Absolute Auto 0.3 K/mm3 (0-0.3); Eosinophils Percent Auto 2.6 % (0-4.4); Hematocrit 43.9 % (42.0-52.0); Hemoglobin 14.7 g/dL (14.0-18.0); Immature Granulocyte Absolute 0.03 K/mm3 (0.00-0.031); Immature Granulocyte Percent A 0.3 % (0-0.5); Lymphocytes Absolute Auto 3.24 K/mm3 (0.9-3.2); Lymphocytes Percent Auto 29.6 % (18.3-44.2); Mean Corpuscular HGB Conc 33.5 g/dl (32-36); Mean Corpuscular Hemoglobin 29.5 pg (26-34); Monocytes Absolute Auto 0.9 K/mm3 (0.1-0.6); Monocytes Percent Auto 8.6 % (2.6-8.5); Neutrophils Absolute Auto 6.4 K/mm3 (1.3-6.7); Neutrophils Percent Auto 58.3 % (45.5-73.1); Platelet Count Result 260 k/mm3 (150-375); Red Blood Count 4.99 M/mm3 (4.6-6.20); Red Cell Distribution Width 13.2 % (11.5-14.5); White Blood Count 10.9 K/mm3 (4.5-10.0)
[2024-09-22 00:30] LABS: Add Urine Microscopic? YES; Appearance Urine Cloudy (Clear); Bacteria Urine None Seen /hpf; Bilirubin Urine Negative (Negative); Blood Urine 3+ (Negative); Color Urine Dark Yellow (Yellow); Glucose Urine UA Negative (Negative); Ketones Urine Negative (Negative); Leukocyte Esterase Ur Trace LEU/UL (Negative); Nitrate Urine Negative (Negative); Non Pathogenic Casts 0-2; Protein Urine 1+ mg/dL (Negative); RBC Urine >100 /hpf (0-2); Specific Grav Ur 1.015 (1.001-1.035); Squamous Epithelial Cell Urine None Seen /hpf (Few); Urobilinogen Urine 0.2 mg/dL (<2.0); WBC Urine 0-5 /hpf (0-3); pH Urine 5.5 (5.0-9.0)
[2024-09-22 00:31] LABS: Alanine Aminotransferase 28 U/L (6-50); Albumin Level 4.7 g/dL (3.5-5.1); Alkaline Phosphatase 56 U/L (38-126); Anion Gap 11 mmol/L (4-12); Aspartate Amino Transferase 30 U/L (17-59); Bilirubin,Total 0.6 mg/dL (0.2-1.3); Blood Urea Nitrogen 13 mg/dL (9-20); Calcium 10.1 mg/dL (8.4-10.2); Carbon Dioxide 26 mmol/L (22-30); Chloride 98 mmol/L (98-107); Estimated CRCL calculation 98 ml/min; Estimated Glomerular Filt Rate > 60; Glucose 109 mg/dL (65-110); Lipase 210 U/L (23-300); Sodium 135 mmol/L (137-145); Total Protein 7.7 g/dL (6.3-8.2)
--- NOTE | 2024-09-22 00:46 | ED.ABDPAIN ---
HPI - Abdominal Pain General Chief Complaint: Abdominal Pain <BRYANT Curiel Last Filed: 09/22/24 02:06> Stated Complaint: right kidney stone <BRYANT Curiel Last Filed: 09/22/24 02:06> Time Seen by Provider: 09/22/24 00:19 <BRYANT Curiel Last Filed: 09/22/24 02:06> History of Present Illness HPI narrative: 54-year-old male with history of hyperlipidemia, hypertension, kidney stones presents to the ED with concerns for a kidney stone. Pt states he developed right flank pain and right lower quadrant abdominal pain yesterday with associated nausea and hematuria. Denies dysuria, fever, vomiting. States he took a Percocet at 11:30 p.m. with minimal improvement. He is prescribed Percocet for chronic back pain. <Citlali King PA-C - Last Filed: 09/22/24 02:06> Related Data Home Medications: Home Medications ?Medication ?Instructions ?Recorded ?Confirmed ?Last Taken ?Type hydrocodone 5 mg-acetaminophen 325 5 - 325 tablet PO Q12-24H PRN Pain 05/06/21 06/30/24 05/15/21 History mg tablet losartan 100 mg tablet 100 mg PO DAILY 05/06/21 06/30/24 05/15/21 History rosuvastatin 10 mg tablet 10 mg PO DAILY 05/06/21 06/30/24 05/15/21 History rosuvastatin 20 mg tablet 20 mg PO DAILY 06/30/24 06/30/24 Unknown History semaglutide 2 mg/dose (8 mg/3 mL) 2 mg subcut WEEKLY 06/30/24 06/30/24 Unknown History subcutaneous pen injector (Ozempic) <BRYANT Curiel Last Filed: 09/22/24 02:06> Allergies/Adverse Reactions: Allergies Allergy/AdvReac Type Severity Reaction Status Date / Time No Known Allergies Allergy Verified 06/30/24 13:26 <BRYANT Curiel Last Filed: 09/22/24 02:06> Review of Systems Review of Systems: All systems reviewed & are unremarkable except as noted in HPI and below <Citlali Kign PA-C - Last Filed: 09/22/24 02:06> [facility] Past Medical History Medical History: Medical History Chronic back pain Hyperlipidemia HTN (hypertension) Morbid obesity <Citlali King PA-C - Last Filed: 09/22/24 02:06> Surgical History Surgical History: Surgical History History of appendectomy <Citlali King PA-C - Last Filed: 09/22/24 02:06> Family History Family History: Family History Mother Family history of obesity Family history of malignant melanoma Father Patient's father is in good health Hypertension Sibling Patient's sister is in good health <Citlali King PA-C - Last Filed: 09/22/24 02:06> Social History Social History: Social History Smoking packs per day: 1 Smoking cigarettes per day: 20.0 Years smoked: 25 Smoking pack-years: 25.00 Smoking status: Former smoker Alcohol intake: current Substance use: current Substance use type: marijuana Other substance usage details: vape marijuana for sleep Living arrangements: with family Additional living arrangements comments: Spiritual care concerns: No <Citlali King PA-C - Last Filed: 09/22/24 02:06> Exam Narrative: GENERAL: Appears uncomfortable, tearful HEAD: Normocephalic, atraumatic. EYES: EOMI. ENT: Nares clear, no rhinorrhea or epistaxis. Mucous membranes moist. NECK: Supple. CHEST: Clear to auscultation. No respiratory distress. HEART: Regular rate and rhythm. No murmur heard. Normal peripheral pulses. ABDOMEN: Normoactive bowel sounds. Abdomen soft mild tenderness in the right lower quadrant and right-sided CVA tenderness. No rebound or rigidity. EXTREMITIES: Normal range of motion. No edema. SKIN: Warm, dry, no rash. NEURO: No focal deficits. Alert and oriented x3 <Citlali King PA-C - Last Filed: 09/22/24 02:06> Course [employer]SI[employer]ANG[employer]AGE [employer]CTOR/PA Physician Supervision For this patient encounter, I reviewed the R[employer]SIAN LANGUAGE INSTRUCTOR or PA documentation, treatment plan, and medical decision making and had flyy-ca-hrae time with this patient. I performed all aspects of the MDM as documented. <Kalani Ponce MD - Last Filed: 09/22/24 05:04> Vital Signs Vital signs: Vital Signs Temperature 97.8 F 09/21/24 23:21 Pulse Rate 81 09/21/24 23:21 Respiratory Rate 16 09/21/24 23:21 Blood Pressure 168/93 H 09/21/24 23:21 Pulse Oximetry 100 09/21/24 23:21 Temperature 97.8 F 09/21/24 23:21 Pulse Rate 67 09/22/24 03:46 Respiratory Rate 12 09/22/24 03:46 Blood Pressure 126/70 09/22/24 03:46 Pulse Oximetry 94 09/22/24 03:46 <Citlali King PA-C - Last Filed: 09/22/24 02:06> Vital Signs Temperature 97.8 F 09/21/24 23:21 Pulse Rate 81 09/21/24 23:21 Respiratory Rate 16 09/21/24 23:21 Blood Pressure 168/93 H 09/21/24 23:21 Pulse Oximetry 100 09/21/24 23:21 Temperature 97.8 F 09/21/24 23:21 Pulse Rate 67 09/22/24 03:46 Respiratory Rate 12 09/22/24 03:46 Blood Pressure 126/70 09/22/24 03:46 Pulse Oximetry 94 09/22/24 03:46 <Kalani Ponce MD - Last Filed: 09/22/24 05:04> MDM - Abdominal Pain MDM Narrative Medical decision making narrative: 54-year-old male with history kidney stones presents to emergency department for right flank pain and right lower quadrant abdominal pain with hematuria. Vitals with elevated blood pressure, otherwise unremarkable. Patient is afebrile and nontoxic appearing. He does appear uncomfortable and is tearful on exam. He was given IV fluids, Zofran and morphine for symptomatic control. Lab work with mild leukocytosis of 10.9. Chemistries are unremarkable with normal kidney function. UA with greater than 100 RBCs and trace leuk esterase, no white blood cells or nitrites. Pending CT abdomen pelvis at time of sign-out to Dr. Ponce. <Citlali King PA-C - Last Filed: 09/22/24 02:06> 54-year-old male with history kidney stones presents to emergency department for right flank pain and right lower quadrant abdominal pain with hematuria. Vitals with elevated blood pressure, otherwise unremarkable. Patient is afebrile and nontoxic appearing. He does appear uncomfortable and is tearful on exam. He was given IV fluids, Zofran and morphine for symptomatic control. Lab work with mild leukocytosis of 10.9. Chemistries are unremarkable with normal kidney function. UA with greater than 100 RBCs and trace leuk esterase, no white blood cells or nitrites. Pending CT abdomen pelvis at time of sign-out to Dr. Ponce. Patient was signed out to [place] pending CT abdomen pelvis without IV contrast. CT was obtained revealing an obstructing 1 cm right UPJ stone with mild hydronephrosis on the righ side. At this time, case was discussed with the on-call urologist Dr. Macias who recommended outpatient follow-up for shock treatment. He did want a KUB ordered prior to patient's discharge. Patient was informed to stay away from NSAIDs and was prescribed [place] to use as needed for pain. Patient's pain use currently controlled. Patient is agreeable with this. Instructed to call the urologist's office tomorrow to set up a follow-up appointment. Patient was also provided with strict return precautions and instructed return to the emergency department if any new worsening symptoms develop. He was discharged home in stable condition. <Kalani Ponce MD - Last Filed: 09/22/24 05:04> Lab Data Result diagrams: 09/22/24 00:01 09/22/24 00:01 <Citlali King PA-C - Last Filed: 09/22/24 02:06> Labs: Lab Results 09/22/24 09/22/24 Range/Units 00:01 00:07 WBC 10.9 H (4.5-10.0) K/mm3 RBC 4.99 (4.6-6.20) M/mm3 Hgb 14.7 (14.0-18.0) g/dL Hct 43.9 (42.0-52.0) % MCV 88.0 (80-100) fl MCH 29.5 (26-34) pg MCHC 33.5 (32-36) g/dl RDW 13.2 (11.5-14.5) % Plt Count 260 (150-375) k/mm3 MPV 11.0 H (7.4-10.4) fl Immature Gran % (Auto) 0.3 (0-0.5) % Neut % (Auto) 58.3 (45.5-73.1) % Lymph % (Auto) 29.6 (18.3-44.2) % [place] % (Auto) 8.6 H (2.6-8.5) % Eos % (Auto) 2.6 (0-4.4) % Baso % (Auto) 0.6 (0.2-1.2) % Lymph # (Auto) 3.24 H (0.9-3.2) K/mm3 [place] # (Auto) 0.9 H (0.1-0.6) K/mm3 Eos # (Auto) 0.3 (0-0.3) K/mm3 Baso # (Auto) 0.1 (0.0-0.1) K/mm3 Abs Immat Gran (auto) 0.03 (0.00-0.031) K/mm3 Absolute Neuts (auto) 6.4 (1.3-6.7) K/mm3 Absolute Nucleated RBC 0.000 (0.0-0.012) K/mm3 Nucleated RBC % 0.0 (0.0-0.2) % Sodium 135 L (137-145) mmol/L Potassium 4.0 (3.4-5.0) mmol/L Chloride 98 (98-107) mmol/L Carbon Dioxide 26 (22-30) mmol/L Anion Gap 11 (4-12) mmol/L BUN 13 (9-20) mg/dL Creatinine 0.94 (0.7-1.3) mg/dL Estim Creat Clear Calc 98 ml/min Estimated GFR > 60 (59 - ) Glucose 109 (65-110) mg/dL Calcium 10.1 (8.4-10.2) mg/dL Total Bilirubin 0.6 (0.2-1.3) mg/dL AST 30 (17-59) U/L ALT 28 (6-50) U/L Alkaline Phosphatase 56 (38-126) U/L Total Protein 7.7 (6.3-8.2) g/dL Albumin 4.7 (3.5-5.1) g/dL Lipase 210 (23-300) U/L Urine Color Dark yellow (Yellow) Urine Appearance Cloudy H (Clear) Urine pH 5.5 (5.0-9.0) Ur Specific [place] 1.015 (1.001-1.035) Urine Protein 1+ H (Negative) mg/dL Urine Glucose (UA) Negative (Negative) mg/dL Urine Ketones Negative (Negative) mg/dL Ur Blood (Man) 3+ H (Negative) Urine Nitrate Negative (Negative) Urine Bilirubin Negative (Negative) Urine Urobilinogen 0.2 (<2.0) mg/dL Leukocyte Esterase Rfl Trace H (Negative) LEDY/UL Urine RBC >100 H (0-2) /hpf Urine WBC 0-5 (0-3) /hpf Ur Squamous Epith Cells None seen (Few) /hpf Urine Bacteria None seen /hpf Urine Casts 0-2 <Citlali King PA-C - Last Filed: 09/22/24 02:06> Lab Results 09/22/24 09/22/24 Range/Units 00:01 00:07 WBC 10.9 H (4.5-10.0) K/mm3 RBC 4.99 (4.6-6.20) M/mm3 Hgb 14.7 (14.0-18.0) g/dL Hct 43.9 (42.0-52.0) % MCV 88.0 (80-100) fl MCH 29.5 (26-34) pg MCHC 33.5 (32-36) g/dl RDW 13.2 (11.5-14.5) % Plt Count 260 (150-375) k/mm3 MPV 11.0 H (7.4-10.4) fl Immature Gran % (Auto) 0.3 (0-0.5) % Neut % (Auto) 58.3 (45.5-73.1) % Lymph % (Auto) 29.6 (18.3-44.2) % [place] % (Auto) 8.6 H (2.6-8.5) % Eos % (Auto) 2.6 (0-4.4) % Baso % (Auto) 0.6 (0.2-1.2) % Lymph # (Auto) 3.24 H (0.9-3.2) K/mm3 [place] # (Auto) 0.9 H (0.1-0.6) K/mm3 Eos # (Auto) 0.3 (0-0.3) K/mm3 Baso # (Auto) 0.1 (0.0-0.1) K/mm3 Abs Immat Gran (auto) 0.03 (0.00-0.031) K/mm3 Absolute Neuts (auto) 6.4 (1.3-6.7) K/mm3 Absolute Nucleated RBC 0.000 (0.0-0.012) K/mm3 Nucleated RBC % 0.0 (0.0-0.2) % Sodium 135 L (137-145) mmol/L Potassium 4.0 (3.4-5.0) mmol/L Chloride 98 (98-107) mmol/L Carbon Dioxide 26 (22-30) mmol/L Anion Gap 11 (4-12) mmol/L BUN 13 (9-20) mg/dL Creatinine 0.94 (0.7-1.3) mg/dL Estim Creat Clear Calc 98 ml/min Estimated GFR > 60 (59 - ) Glucose 109 (65-110) mg/dL Calcium 10.1 (8.4-10.2) mg/dL Total Bilirubin 0.6 (0.2-1.3) mg/dL AST 30 (17-59) U/L ALT 28 (6-50) U/L Alkaline Phosphatase 56 (38-126) U/L Total Protein 7.7 (6.3-8.2) g/dL Albumin 4.7 (3.5-5.1) g/dL Lipase 210 (23-300) U/L Urine Color Dark yellow (Yellow) Urine Appearance Cloudy H (Clear) Urine pH 5.5 (5.0-9.0) Ur Specific [place] 1.015 (1.001-1.035) Urine Protein 1+ H (Negative) mg/dL Urine Glucose (UA) Negative (Negative) mg/dL Urine Ketones Negative (Negative) mg/dL Ur Blood (Man) 3+ H (Negative) Urine Nitrate Negative (Negative) Urine Bilirubin Negative (Negative) Urine Urobilinogen 0.2 (<2.0) mg/dL Leukocyte Esterase Rfl Trace H (Negative) LEDY/UL Urine RBC >100 H (0-2) /hpf Urine WBC 0-5 (0-3) /hpf Ur Squamous Epith Cells None seen (Few) /hpf Urine Bacteria None seen /hpf Urine Casts 0-2 <Kalani Ponce MD - Last Filed: 09/22/24 05:04> Discharge Plan Discharge Clinical Impression: Kidney stone on right side, Acute right flank pain <Citlali King PA-C - Last Filed: 09/22/24 02:06> Patient Disposition: Home <Citlali King PA-C - Last Filed: 09/22/24 02:06> Condition: Improved <BRYANT Curiel Last Filed: 09/22/24 02:06> Instructions: Antibiotic Form, Kidney Stones (ED), Flank Pain (ED) <Citlali King PA-C - Last Filed: 09/22/24 02:06> Additional Instructions: Please call the urology office 1st thing this morning to set up a follow-up appointment as he will need shock treatment for your 1 cm right UVJ stone. To use the prescribed [place] as needed for pain. He will need to stay away from any NSAIDs including any Advil, ibuprofen, Aleve etc.. Return to the ED if any new or worsening symptoms develop. <Citlali King PA-C - Last Filed: 09/22/24 02:06> Patient Language: Mongolian <BRYANT Curiel Last Filed: 09/22/24 02:06> Prescriptions: New hydrocodone-acetaminophen 5-325 mg tablet 1 tablet PO Q8H PRN (Reason: pain) Qty: 14 0RF No Action hydrocodone-acetaminophen 5-325 mg tablet 5 - 325 tablet PO Q12-24H PRN (Reason: Pain) losartan 100 mg tablet 100 mg PO DAILY rosuvastatin 10 mg tablet 10 mg PO DAILY rosuvastatin 20 mg tablet 20 mg PO DAILY Ozempic 2 mg/dose (8 mg/3 mL) pen injector 2 mg SUBCUT WEEKLY <Citlali King PA-C - Last Filed: 09/22/24 02:06> Follow-up/Referrals: Martín Gayle MD [Primary Care Provider] - Tyler Macias MD [Physician] - 3 Days <Citlali King PA-C - Last Filed: 09/22/24 02:06> Time of Disposition: 05:02 <Citlali King PA-C - Last Filed: 09/22/24 02:06> 05:02 <Kalani Ponce MD - Last Filed: 09/22/24 05:04>
[2024-09-22] MEDS: ONDANSETRON INJ 4 MG/2 ML VIAL IV PUSH (01:13)
[2024-09-22] MEDS: MORPHINE SULFATE (*CRX) 4 MG/ML INJ IV PUSH (01:14)
[2024-09-22] MEDS: SODIUM CHLORIDE 0.9% IV 1,000 ML 999 ML IV CONT (01:14)
== END 2024-09-22 05:39 | disposition home or self-care (01) ==
PROVIDERS: Emergency Provider Emergency Medicine; PCP Emergency Medicine
DX: N20.0 Calculus of kidney (principal); E78.5 Hyperlipidemia, unspecified; I10 Essential (primary) hypertension; G89.29 Other chronic pain; M54.9 Dorsalgia, unspecified; Z87.891 Personal history of nicotine dependence
CPT/HCPCS: 36415; 74018; 74176; 80053; 81001; 83690; 85025; 96361; 96374; 96375; 99284; J2270; J2405; J7030

== ENCOUNTER 2024-10-25 22:24 | Emergency (ER) | payer BC, SELFPAY ==
--- NOTE | ~2024-10-25 | CT_ITS ---
CT of the Abdomen and Pelvis: Indication: Abdominal pain Technique: 2.5 mm axial scans were obtained through the abdomen and pelvis following intravenous adm inistration of 100 cc of Omnipaque 350. Dose reduction technique was used on this scan by utilizing a utomated exposure control and iterative reconstruction technique. The dose-length product (DLP) was 1 480.61 mGy-cm. COMPARISON: 09/22/2024 and 12/15/2021 Findings: Scans through the lung bases are unremarkable. There is a 13 mm hypodense lesion in the inferior hepatic lobe (axial image 55), indeterminate. Small calcified gallstones are present. The spleen, pancreas, and adrenal glands are within normal limits. There is a 6 mm proximal right ureteral stone with mild right hydroureteronephrosis to this level. B ilateral renal cysts are present. No left-sided stones or left hydronephrosis. No evidence of aortic aneurysm. No lymphadenopathy. No bowel obstruction or bowel wall thickening. There is no evidence to suggest acute appendicitis. Images through the pelvis were performed. Urinary bladder unremarkable. No pelvic mass seen. No ascit es. Impression: 6 mm proximal right ureteral stone with mild right hydroureteronephrosis to this level. Cholelithiasis. Indeterminate small hypodense hepatic lesion, essentially stable since 12/15/2021, therefore most consi stent with a benign finding. Reviewed, dictated and finalized at location . Impression: 6 mm proximal right ureteral stone with mild right hydroureteronephrosis to thi s level. Cholelithiasis. Indeterminate small hypodense hepatic lesion, essentially stable since 12/15/2021 , therefore most consistent with a benign finding.
--- OUTSIDE RECORDS SUMMARY | 2024-10-25 22:26 | XMS_ITS | Clinical Summary ---
Author Organization [facility] Address [address] [place] [address] Care Team Providers Care Instrument Sterilizer Name Role Phone Martín Gayle MD Primary Care Provider [phone] Source Comments [facility],non-owned Affiliates and Associated Physician Practices is amultiple site organization consisting of ambulatory clinics and hospital sitesin [place], [place], [place] and [place]. This disclosure is being madepursuant to the Care Everywhere program and may not contain all information available regarding this patient. 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
--- OUTSIDE RECORDS SUMMARY | 2024-10-25 22:26 | XMS_ITS | Continuity of Care Document ---
Author Organization [facility] Address [address] [place] [address] [place] [address] Phone Care Team Providers Care Enterprise Sales Person Name Role Phone Martín Gayle MD Unavailable [...] one hour before active, max 1/24 hour [place] 7.5 mg-325 mg tablet take 1 tablet by oral route every 4 - 6 hours as needed for pain as needed 1 tablet - Active PRN for pain, avoid driving or operate machines Procedures Procedure Date OFFICE/OUTPATIENT VISIT, EST OFFICE/OUTPATIENT VISIT, EST PREV [...] Providers Copied on Encounter OFFICE/OUTPA TIENT VISIT, [facility], [address], [place], [place], [address], [place] tel:[phone] [facility] renal stone1 (chief complaint) renal1 (chief complaint) gallstone (chief complaint) Renal stoneOther cholelithiasis without obstructionNeoplasm of unspecified behavior of left kidney 0 5 Irwin Resendiz. [address], [place], [place], [address] , [place]. tel:[phone] OFFICE/OUTPA TIENT VISIT, [facility], [address], [place], [place], [address], [place] tel:[phone] [facility] HLP (chief complaint) HTN (chief complaint) DM (chief complaint) colon (chief complaint) Essential (primary) hypertensionPolyp of colonMixed hyperlipidemiaType 2 diabetes mellitus without complicationsObstru ctive sleep apnea hypopnea 5 Gayle Martín. [address], [place], [place], [address] , [place]. tel:[phone] PREV VISIT, EST, AGE 40-64 [facility], [address], [place], [place], [address], [place] tel:[phone] [facility] physical (chief complaint) Encounter for general adult medical exam w abnormal findingsEssential (primary) hypertensionAbnorma l weight lossMixed hyperlipidemiaMale erectile dysfunction, unspecifiedPolyp of colonType 2 diabetes mellitus without complications 4 Gayle Martín. [address], [place], [place], [address] , [place]. tel:[phone] OFFICE/OUTPA TIENT VISIT, [facility], [address], [place], [place], [address], [place] tel:[phone] [facility] HTN (chief complaint) HLP (chief complaint) sleep apnea1 (chief complaint) DM (chief complaint) Essential (primary) hypertensionType 2 diabetes mellitus without complicationsMixed hyperlipidemiaObstr uctive sleep apnea hypopneaAbnormal weight loss 4 Irwin Cordova [address], [place], [place], [address] , [place]. tel: [phone] OFFICE/OUTPA TIENT VISIT, [facility], [address] [place], [address], [place] tel:[phone] [facility] HLP (chief complaint) DM (chief complaint) HTN (chief complaint) nausea1 (chief complaint) dysuria1 (chief complaint) DysuriaMixed hyperlipidemiaType 2 diabetes mellitus without complicationsAbnorm al weight lossGERD w/o esophagitisEssentia l (primary) hypertension 4 Irwin Cordova [address], [place], [place], [address] , [place]. tel: [phone] OFFICE/OUTPA TIENT VISIT, [facility], [address] [place], [address], [place] tel:[phone] [facility] UTI1 (chief complaint) DM (chief complaint) HLP (chief complaint) DysuriaType 2 diabetes mellitus without complicationsAbdomi nal painMixed hyperlipidemia 4 Irwin Cordova [address], [place], [place], [address] , [place]. tel: [phone] OFFICE/OUTPA TIENT VISIT, [facility], [address] [place], [address], [place] tel:[phone] [facility] HLP (chief complaint) GI (chief complaint) DM (chief complaint) weight loss1 (chief complaint) Mixed hyperlipidemiaType 2 diabetes mellitus without complicationsAbnorm al weight lossIrritable bowel syndrome 4 Irwin Resendiz. [address], [place], [place], [address] , [place]. tel: [phone] OFFICE/OUTPA TIENT VISIT, [facility], [address] [place], [address], [place] tel:[phone] [facility] DM (chief complaint) HLP (chief complaint) GI (chief complaint) Type 2 diabetes mellitus without complicationsIrrita ble bowel syndromeMixed hyperlipidemiaOccul t blood in stool 4 Irwin Cordova [address], [place], [place], [address] , [place]. tel:[phone] OFFICE/OUTPA TIENT VISIT, [facility], [address], [place], [place], [address], [place] tel:[phone] [facility] cough1 (chief complaint) Acute bronchitis 3 Irwin Cordova [address], [place], [place], [address] , [place]. tel: [phone] PREV VISIT, EST, AGE 40-64 [facility], [address], [place], [place], [address], [place] [phone] [facility] physical (chief complaint) Encounter for general adult medical exam w abnormal findingsOccult blood in stoolMale erectile dysfunction, unspecifiedMixed hyperlipidemiaEssen tial (primary) hypertensionPrimary central sleep apnea 3 Irwin Cordova [address], [place], [address] , [place]. tel:[phone] OFFICE/OUTPA TIENT VISIT, EST [facility], [address], [place], [place], [address], [place] tel:[phone] [facility] bleeding1 (chief complaint) sleep apnea1 (chief complaint) Occult blood in stoolPrimary central sleep apneaHypertrophy of nasal turbinates 3 Irwin Cordova [address], [place], [place], [address] , [place]. [phone] Referring Provider: Agg[address], [place], [place], [address]. tel:[phone] OFFICE/OUTPA TIENT VISIT, [facility], [address], [place], [place], [address], [place] tel:[phone] [facility] septum1 (chief complaint) ED (chief complaint) nausea1 (chief complaint) Hypertrophy of nasal turbinatesMale erectile dysfunction, unspecifiedPrimary central sleep apneaNausea w/o vomiting Mar-0 3 Irwin Resendiz. [address], [place], [place], [address] , [place]. tel:[phone] Referring Provider: [address]ie [address], [place], [place], [address]. tel:[phone] OFFICE/OUTPA TIENT VISIT, [facility], [address], [place], [place], [address], [place] tel:[phone] [facility] sleep apnea1 (chief complaint) ED (chief complaint) Primary central sleep apneaHypertrophy of nasal turbinatesMale erectile dysfunction, unspecified 3 Irwin Resendiz. [address], [place], [place], [address] , [place]. tel:[phone] Referring Provider: [address], [place], [place], [address]. tel:[phone] OFFICE/OUTPA TIENT VISIT, [facility], [address], [place], [place], [address], [place] tel:[phone] [facility] HTN (chief complaint) ED (chief complaint) glucose1 (chief complaint) HLP (chief complaint) Mixed hyperlipidemiaPrima ry central sleep apneaEssential (primary) hypertensionHypergl ycemiaMale erectile dysfunction, unspecified 2 Irwin Resendiz. [address], [place], [place], [address] , [place]. tel:[phone] Referring Provider: Aggie [address], [place], [place], [address]. tel:[phone] OFFICE/OUTPA TIENT VISIT, [facility], [address], [place], [place], [address], [place] tel:[phone] [facility] liver lesions1 (chief complaint) HTN (chief complaint) Liver diseaseMixed hyperlipidemia Jan- 2 Irwin Resendiz. [address], [place], [place], [address] , [place]. tel:[phone] Referring Provider: Aggie [address], [place], [place], [address]. tel:[phone] OFFICE/OUTPA TIENT VISIT, [facility], [address], [place], [place], [address], [place] tel:[phone] [facility] abd pain1 (chief complaint) Acute appendicitis without localized peritonitisOther specified diseases of liverOther cholelithiasis without obstruction 2 Irwin Resendiz. [address], [place], [place], [address] , [place]. tel:[phone] Referring Provider: Aggie [address], [place], [place], [address]. tel:[phone] OFFICE/OUTPA TIENT VISIT, [facility], [address], [place], [place], [address], [place] tel:[phone] [facility] abd pain1 (chief complaint) Umbilical herniaLower abdominal pain, unspecifiedOccult blood in stool Nov- 2 Irwin Cordova [address], [place], [place], [address] , [place]. tel:[phone] Referring Provider: Aggie [address], [place], [place], [address]. tel:[phone] OFFICE/OUTPA TIENT VISIT, [facility], [address], [place], [place], [address], [place] tel:[phone] [facility] HTN (chief complaint) sleep apnea1 (chief complaint) HLP (chief complaint) Essential (primary) hypertensionMixed hyperlipidemiaPrima ry central sleep apnea 2 Irwin Resendiz. [address], [place], [place], [address] , [place]. tel:[phone] Referring Provider: [address], [place], [place], [address]. tel:[phone] PREV VISIT, EST, AGE 40-64 [facility], [address], [place], [place], [address], [place] tel:[phone] [facility] Medicine physical (chief complaint) Encounter for general adult medical exam w abnormal findingsPolyp of colonEssential (primary) hypertensionMixed hyperlipidemiaPrima ry central sleep apnea 2 Irwin Cordova [address], [place], [place], [address] , [place]. [phone] Referring Provider: [address], [place], [place], [address]. tel:[phone] OFFICE/OUTPA TIENT VISIT, EST [facility], [facility] [address], [place], [place], [address], [place] tel:[phone] [facility] HTN (chief complaint) HLP (chief complaint) colon polyp1 (chief complaint) Polyp of colonEssential (primary) hypertensionHyperli pidemia 1 Irwin Cordoav [address], [place], [place], [address] , [place]. tel:[phone] Referring Provider: [address], [place], [place], [address]. tel:[phone] PREV VISIT, EST, AGE 40-64 [facility], [address], [place], [place], [address], [place] tel:[phone] [facility] physical (chief complaint) Encounter for general adult medical exam w abnormal findingsEssential (primary) hypertensionHyperli pidemiaHyperglycemi aPolyp of colon 1 Irwin Cordova [address], [place], [place], [address] , [place]. [phone] Referring Provider: Aggie [address], [place], [place], [address]. tel:[phone] PREV VISIT, EST, AGE 40-64 [facility], [address], [place], [place], [address], [place] tel:[phone] [facility] physical (chief complaint) HyperlipidemiaHyper glycemiaAthlete's footEssential (primary) hypertensionEncount er for general adult medical exam w abnormal findingsHerpes simplex infectionDisorder of penisEncounter for general adult medical examination without abnormal findings 0 Irwin Resendiz. [address], [place], [place], [address] , [place]. tel:[phone] Referring Provider: Aggie Jefferson [facility] A, [place], [place], [address]. tel:[phone] OFFICE/OUTPA TIENT VISIT, [facility], [address], [place], [place], [address], [place] tel:[phone] [facility] Athletic foot1 (chief complaint) penile lesion1 (chief complaint) HLP (chief complaint) glucose1 (chief complaint) sick (chief complaint) Athlete's footHyperlipidemiaH yperglycemiaViral infectionDisorder of penis 0 Irwin Resendiz. [address], [place], [place], [address] , [place]. tel:[phone] Referring Provider: Aggie [address] [facility] [address], [place], [place], [address]. tel:[phone] OFFICE/OUTPA TIENT VISIT, [facility], [address], [place], [place], [address], [place] tel:[phone] [facility] hand rash1 (chief complaint) back pain1 (chief complaint) foot fugus1 (chief complaint) HLP (chief complaint) Athlete's footEczemaChronic pain syndromeHyperlipide leland 0 Irwin Cordova [address], [place], [place], [address] , [place]. tel:[phone] Referring Provider: Aggie Jefferson [facility] A, [place], [place], [address]. tel:[phone] OFFICE/OUTPA TIENT VISIT, [facility], [address], [place], [place], [address], [place] tel:[phone] [facility] chronic pain1 (chief complaint) hLP (chief complaint) glucose1 (chief complaint) foot itch (chief complaint) rash1 (chief complaint) HyperlipidemiaHyper glycemiaChronic pain syndromeEczemaAthle te's foot 8202 0 Irwin Cordova [address], [place], [place], [address] , [place]. tel:[phone] Referring Provider: [address]ie [address], [place], [place], [address]. tel:[phone] OFFICE/OUTPA TIENT VISIT, [facility], [address], [place], [place], [address], [place] tel:[phone] [facility] neck pain1 (chief complaint) back pain1 (chief complaint) HTN (chief complaint) Other spondylosis, cervical regionOther spondylosis, lumbar regionEssential (primary) hypertension Mar-3 0-201 9 Irwin Cordova [address], [place], [place], [address] , [place]. tel:[phone] Referring Provider: [address], [place], [place], [address]. tel:[phone] OFFICE/OUTPA TIENT VISIT, [facility], [address], [place], [place], [address], [place] tel:[phone] [facility] neck pain1 (chief complaint) tinea1 (chief complaint) back pain1 (chief complaint) HTN (chief complaint) Body mass index (BMI) 40.0-44.9, adultAthlete's footChronic pain syndromeRadiculopat hy, cervical regionEssential (primary) hypertension Mar-0 3-201 9 [address], [place], [place], [address] , [place]. tel:[phone] Referring Provider: Aggie [address], [place], [place], [address]. tel:[phone] OFFICE/OUTPA TIENT VISIT, [facility], [address], [place], [place], [address], [place] [phone] [facility] Medicine athlete foot (chief complaint) Athlete's footFatty liverCellulitis of right lower limb 9 Irwin Resendiz. [address], [place], [place], [address] , [place]. tel:[phone] Referring Provider: [address], [place], [place], [address]. tel:[phone] PREV VISIT, EST, AGE 40-64 [facility], [address], [place], [place], [address], [place] [phone] [facility] PHysical (chief complaint) Encounter for general adult medical exam w abnormal findingsHematuriaHy perlipidemiaEssenti al (primary) hypertensionAbnorma l weight lossOtalgia, right earLumbago 9 Irwin Resendiz. [address], [place], [place], [address] , [place]. tel:[phone] Referring Provider: [address], [place], [place], [address]. tel:[phone] OFFICE/OUTPA TIENT VISIT, [facility], [address], [place], [place], [address], [place] tel:[phone] [facility] HLP (chief complaint) HTN (chief complaint) neck pain1 (chief complaint) wart1 (chief complaint) HyperlipidemiaRadic ulopathy, cervical regionPlantar wartEssential (primary) hypertension 9 Irwin Resendiz. [address], [place], [place], [address] , [place]. tel:[phone] Referring Provider: [address], [place], [place], [address]. tel:[phone] OFFICE/OUTPA TIENT VISIT, [facility], [address], [place], [place], [address], [place] tel:[phone] [facility] hematuria1 (chief complaint) HLP (chief complaint) back pain1 (chief complaint) HematuriaHyperlipid emiaChronic pain syndrome 9 Irwin Resendiz. [address], [place], [place], [address] , [place]. tel:[phone] Referring Provider: Martín Gayle, [address], [place], [place], [address]. tel:[phone] OFFICE/OUTPA TIENT VISIT, [facility], [address], [place], [place], [address], [place] tel:[phone] [facility] HTN (chief complaint) abdominal pain1 (chief complaint) HLP (chief complaint) UTI1 (chief complaint) HyperlipidemiaAbdom inal painEssential (primary) hypertensionUrinary tract infection Irwin Resendiz. [address], [place], [place], [address] , [place]. tel:[phone] Referring Provider: Aggie [address], [place], [place], [address]. tel:[phone] OFFICE/OUTPA TIENT VISIT, [facility], [address], [place], [place], [address], [place] tel:[phone] [facility] HTN (chief complaint) fatty liver1 (chief complaint) abd pain1 (chief complaint) HLP (chief complaint) Polyp of colonHyperlipidemia Fatty liverOther cholelithiasis without obstructionEssentia l (primary) hypertension 8 Irwin Resendiz. [address], [place], [place], [address] , [place]. tel:[phone] Referring Provider: Aggie [address], [place], [place], [address]. tel:[phone] OFFICE/OUTPA TIENT VISIT, [facility], [address], [place], [place], [address], [place] tel:[phone] [facility] abdominal pain1 (chief complaint) HTN (chief complaint) colon polyp1 (chief complaint) Body mass index (BMI) 40.0-44.9, adultAbdominal painEssential (primary) hypertensionUmbilic al herniaPolyp of colon 8 Irwin Cordova [address], [place], [place], [address] , [place]. tel:[phone] Referring Provider: Aggie [address], [place], [place], [address]. tel:[phone] OFFICE/OUTPA TIENT VISIT, [facility], [address], [place], [place], [address], [place] tel:[phone] [facility] HTN (chief complaint) abd pain1 (chief complaint) travel1 (chief complaint) HLp (chief complaint) Essential (primary) hypertensionAbdomin al painEncounter for antibody response examinationHyperlip idemia 8 Irwin Cordova [address], [place], [place], [address] , [place]. tel:[phone] Referring Provider: Aggie Jefferson [facility] [address], [place], [place], [address]. tel:[phone] PREV VISIT, EST, AGE 40-64 [facility], [address], [place], [place], [address], [place] tel:[phone] [facility] abdominal pain1 (chief complaint) HTN (chief complaint) sleep apnea1 (chief complaint) HLP (chief complaint) Abdominal painEssential (primary) hypertensionSleep apneaEncounter for general adult medical exam w abnormal findingsHyperlipide leland 8 Irwin Cordova [address], [place], [place], [address] , [place]. tel:[phone] Referring Provider: [address], [place], [place], [address]. tel:[phone] OFFICE/OUTPA TIENT VISIT, [facility], [address], [place], [place], [address], [place] tel:[phone] [facility] HTN (chief complaint) sleep apnea1 (chief complaint) shoulder pain1 (chief complaint) Body mass index (BMI) 39.0-39.9, adultSleep apneaEssential (primary) hypertensionAnterio r chest-wall painPain in right shoulder 8 Irwin Cordova [address], [place], [place], [address] , [place]. tel:[phone] Referring Provider: Aggie [address], [place], [place], [address]. tel:[phone] OFFICE/OUTPA TIENT VISIT, [facility], [address], [place], [place], [address], [place] tel:[phone] [facility] neck pain1 (chief complaint) weight gain1 (chief complaint) back pain1 (chief complaint) LymphadenopathyLumb agoBody mass index (BMI) 40.0-44.9, adult 8 Irwin Cordova [address], [place], [place], [address] , [place]. tel:[phone] Referring Provider: Aggie [address], [place], [place], [address]. tel:[phone] OFFICE/OUTPA TIENT VISIT, [facility], [address], [place], [place], [address], [place] tel:[phone] [facility] HTN (chief complaint) hand numbness1 (chief complaint) sleep apnea1 (chief complaint) obesity1 (chief complaint) Sleep apneaEssential (primary) hypertensionAbnorma l weight gainParesthesia of skin 8 Irwin Cordova [address], [place], [place], [address] , [place]. tel:[phone] Referring Provider: [address]ie [address], [place], [place], [address]. tel:[phone] OFFICE/OUTPA TIENT VISIT, [facility], [address], [place], [place], [address], [place] tel:[phone] [facility] sleep apnea (chief complaint) sleep apnea1 (chief complaint) back pain1 (chief complaint) obesity1 (chief complaint) Sleep apneaBody mass index (BMI) 40.0-44.9, adultLumbagoEssenti al (primary) hypertension 7 Irwin Resendiz. [address], [place], [place], [address] , [place]. tel:[phone] Referring Provider: Aggie [address], [place], [place], [address]. tel:[phone] OFFICE/OUTPA TIENT VISIT, [facility], [address], [place], [place], [address], [place] tel:[phone] [facility] HLP (chief complaint) vitamin D (chief complaint) cough1 (chief complaint) HTN (chief complaint) sleep disorder1 (chief complaint) HyperlipidemiaVitam in D deficiency, unspecifiedCoughEss ential (primary) hypertension 7 Irwin Resendiz. [address], [place], [place], [address] , [place]. tel:[phone] Referring Provider: Aggie [address], [place], [place], [address]. tel:[phone] OFFICE/OUTPA TIENT VISIT, [facility], [address], [place], [place], [address], [place] tel:[phone] [facility] cough1 (chief complaint) HTN (chief complaint) obesity1 (chief complaint) CoughEssential (primary) hypertensionBody mass index (BMI) 40.0-44.9, adult 7 Irwin Resendiz. [address], [place], [place], [address] , [place]. [phone] Referring Provider: Aggie [address], [place], [place], [address]. tel:[phone] OFFICE/OUTPA TIENT VISIT, [facility], [address], [place], [place], [address], [place] tel:[phone] [facility] cough1 (chief complaint) HTN (chief complaint) Acute bronchitis, unspecifiedEssentia l (primary) hypertension 7 Irwin Resendiz. [address], [place], [place], [address] , [place]. [phone] Referring Provider: Martín Gayle, [address], [place], [place], [address]. tel:[phone] PREV VISIT, NEW, AGE 40-64 [facility], [address], [place], [place], [address], [place] tel:[phone] [facility] PHysical (chief complaint) Encounter for general adult medical exam w abnormal findingsEssential (primary) hypertensionSleep apneaAcute bronchitis, unspecified 7 Irwin Resendiz. [address], [place], [place], [address] , [place]. tel:[phone] Referring Provider: Martín Gayle, [address], [place], [place], [address]. tel:[phone] [facility], [address], [place], [place], [address], [place] tel:[phone] [facility] No Information 7 Irwin Resendiz. [address], [place], [place], [address] , [place]. tel:[phone] Family History Family Member Type Diagnosis Age At Onset Mother Problem (finding) Melanoma Father Problem (finding) Hypertension Mother Problem (finding) CABG 69 Father Problem (finding) ? MS Sister Problem (finding) Alive and well Payers Payer name Insurance type Covered alliance party ID Authorbucka yenny(s) [facility] CI [id number] Social History Type Description Quantity Date Captured Comments Alcohol Use Details No Caffeine Use Details Unknown Tobacco Use Status Never smoked tobacco 2024 Smoking Status Never smoker Sex Male Vital Signs Date / Time: Height Weight BMI Pulse Rate Blood Pressure Temperature Respiratory Rate Body Surface Area Head Circumference BMI percentile Pulse Ox Inhaled Ox 12:55 PM 68.00 in 256.80 lbs 39.0 5 kg/m eter (2) 82 /min 120/68 mm[Hg] 98.3 F 16 /min Chief Complaint And Reason For Visit From encounter dated '09/23/2024 12:55'. renal stone1 (chief complaint). Description: Pt has recurrent renal stone and he went to ER due to right flank pain and was found to have renal stone with hydronephrosis. Pt saw urology today and will have lithotripsy tomorrow renal1 (chief complaint). Description: Pt has renal lesion on left side and he needs renal mass protocol CT or MR. Pt states that his urologist is aware of above and ordered a renal CT to be done in 4 weeks. gallstone (chief complaint). Description: pt has incidental finding of gallstone Pt is on ozempic pt denies any abd pain Plan Of Treatment Date Type Action Status [...] ordered Referral Referred To: ZAIRA BAKER [address] [facility] [address], [place], [phone] Ordered: Referrals: Allopathic & Osteopathic Physicians : [...] -Podiatric Medicine & Surgery Service Providers : Locomotive Inspector (related to Plantar wart) ordered Referral Referred To: SANTIAGO YEAGER [facility],[address] [place], [place], [phone] Ordered: Referrals: Podiatric Medicine & Surgery Service Providers : Locomotive Inspector. SANTIAGO YEAGER. Evaluate and treat ordered Referral Referred To: Mickey Gillespie MD [address] [facility] [address] [place], [place], [phone] Ordered: Referrals: Mickey Gillespie MD Evaluate and treat ordered Referral Ordered: NUC MED HIDA (HEPATOBILIARY) SCAN ordered Referral Ordered: US EXAM, ABDOM, COMPLETE ordered Referral Ordered: Sukhi Causey (related to Carpal tunnel syndrome of arm) ordered Referral Referred To: Sukhi Causey [address] [place], [place] [phone] Ordered: Referrals: Sukhi Causey. Evaluate and treat ordered Referral Ordered: CHEST X-RAY PA/LAT TWO-VIEWS ordered Referral Ordered: Otolaryngology (related to Sleep apnea) ordered Referral Ordered: Referrals: Otolaryngology. Evaluate and treat ordered Appointment Grider, Gio BOOKED History Of Present Illness Encounter Date Complaint History Of Prese nt Illness renal stone1 Pt has recurrent renal stone and he went to ER due to right flank pain and was found to have renal stone with hydronephrosis. Pt saw urology today and will have lithotripsy tomorrow renal1 Pt has renal les ion on left side and he needs renal mass protocol CT or MR. Pt states that his urologist is aware of above and ordered a renal CT to be done in 4 weeks. gallstone pt has incidenta l finding of gallstone Pt is on ozempic pt denies any abd pain HLP Pt has HLP Pt ta kes [...] feels well Pt denies any other complaints DM pt has DM Pt spike es high glucose and high A1c. Pt denies any polyuria, polydipsia .Pt has been taking ozempic and his glucose and A1c almost normalized .Pt denies any GI issue. Pt has been losing weight as well but plateaued while on ozempic HTN Pt has HTN Pt ta kes losartan and his bp is ok HLP pt has HLP. pt t akes crestor and lipid profile is ok. pt denies any myalgia. sleep apnea1 Pt has sleep cytology technologist ea Pt has not been using cpap .Pt denies any fatigue Pt has not been snoring very much dysuria1 Pt has been drin swati more [...] myalgia. Pt tolerating crestor 20 mg well DM Pt has DM <pt to lerates [...] or blood in stool DM Pt has borderlin e DM Pt denies any polyuria polydipsia Pt denies any neuropathy. HLP Pt has HLP Pt ta kes crestor his LDL is not at goal. Pt denies any myalgia GI Pt c/o feeling o f incomplete [...] years ago sleep apnea1 Pt has sleep cytology technologist ea. pt hs been using cpap for [...] works well HLP Pt has HLP, Pt t akes crestor and his lipid profile is ok [...] jaundice. HTN Pt has HLP .Pt t akes crestor .Pt denies any myalgia. abd pain1 Pt [...] in the past but insurance denied CPAP. HLP Pt has persisten t HLP pt has not been on any statin for 6 months Pt tolerated statin well. colon polyp1 Pt has hyperplas tic polyp back in 2017 but he has history of ? tubular adenoma prior to that and he was told to repeat colonoscopy basically now Pt denies any lower GI issue . HTN Pt has HTN Pt st ates that he run out of losartan for one week and his bp is borderline high Pt denies any chest pain or headache physical Pt needs annual physical. Pt has [...] fever, coughing, sob, sick contact, travel ,etc Athletic foot1 Pt c/o recurrent athletic foot [...] failed lamisil HLP Pt has HLP pt ta ke Crestor ,Pt denies any myalgia. Pt doing ok [...] his pain. Pt [facility] and he had Ct of cervical [...] failed OTC Tenactin. Pt then saw his cutter and edge trimmer and he was started on ketoconazole topical [...] high. HTN Pt has HTN. Pt t akes benicar. His BP is stable abdominal pain1 Pt [...] or headache travel1 Pt is going to [facility] and he wants to get hep B vaccine due to possible tattoo he plans to get in [place]. Pt had Tdap last year at [facility] Pt has been diet and exercising. Pt needs lipid profile checked sleep apnea1 Pt has sleep cytology technologist ea .Pt snores. Pt could not afford [...] back HTN Pt has HTn. Pt t kavon juarez and his BP is stable. Pt denies [...] is stable. sleep apnea1 Pt has sleep cytology technologist ea. 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 His lipid profile is slightly high HTN Pt has HTN Pt dixon s [...] any dizziness. He denies any allergy symptoms obesity1 Pt is obese. His BMI is over 40. Pt has been trying diet and exercise for weight loss cough1 Pt has dry and p roductive [...] other complaints Instructions Date Instruction Additional Infor mation Special diet education Related t o Body [...] o Body mass index (BMI) 40.0-44.9, adult Follow a low sodium diet. Relate d to Essential (primary) hypertension Special diet education Related t o Body [...] management Related to Sle ep apnea Prescribed Diet Educ ation/Lifestyle Education Regarding Diet Related to Dietary Surveillance and Counseling Follow a low sodium diet. Relate d to Hyperlipidemia Prescribed Activity and Exercise Education Related to Dietary Surveillance and Counseling Increase activity. Related to Hy perlipidemia Increase physical activity Relat ed to Body [...] Relate d to Essential (primary) hypertension Prescribed Diet Educ ation/Lifestyle Education Regarding Diet Related to Dietary Surveillance and Counseling Prescribed Activity and Exercise Education Related to Dietary Surveillance and Counseling Prescribed Activity and Exercise Education Related to Dietary Surveillance and Counseling Prescribed Diet Educ ation/Lifestyle Education Regarding Diet Related to Dietary Surveillance and Counseling Assessments Type Assessment Date assessment Renal stone assessment Other cholelithiasis without obs truction assessment 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
--- OUTSIDE RECORDS SUMMARY | 2024-10-25 22:26 | XMS_ITS | Encounter Summary ---
Author Organization [facility] Address [address] [facility] [place] [address] Care Team Providers Care Command Post Craftsman Name Role Phone Martín Gayle MD Primary Care Provider [phone] Encounter Details Date Type Department Care Team (Late st Contact Info) Description 06/21/2022 Lab Requisition [facility] [address] [place] [address] Checo Sanches MD [address] [facility] [place] [address] Social History Tobacco Use Types Packs/Day Years Used Date Smoking Tobacco: Never Alcohol Use Standard Drinks/Week Comments No 0 (1 standard drink = 0.6 oz pur e alcohol) Sex and Gender Information Value Date Recorded Sex Assigned at Not on file Legal Sex Male 2:00 PM CUSTOMER SERVICE REP Gender Identity Not on file Sexual Orientation Not on file documented as of this encounter Plan of Treatment Not on file documented as of this encounter Procedures Procedure Name Priority Date/Time Associated Diagnosis Comments DERMATOPATHOLOGY Routine 06/20/2022 12:0 0 AM CUSTOMER SERVICE REP documented in this encounter Results * DERMATOPATHOLOGY (06/20/2022 12:00 AM CUSTOMER SERVICE REP) Case Report Dermatopathology Report Case: [id number] Authorizing Provider: Checo Sanches MD Collected: 06/20/2022 12:00 AM Ordering Location: [facility] Received: 06/21/2022 04:06 PM Pathologist: Darcy Victor MD Specimen: Skin, right mid helix 4:52 PM CUSTOMER SERVICE REP DERMATOPATHOLOGY LABORATORY Final Diagnosis Specimen A. 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 Fibroma vs. BCCA. Path# [id number] 3 4:52 PM [facility] DERMATOPATHOLOGY LABORATORY Gross Description Specimen A: Received is one formalin filled container labeled with the patient's name and designated right mid helix. The specimen consists of a shave biopsy measuring [id number]. Jar 0. 3 4:52 PM [facility] DERMATOPATHOLOGY LABORATORY Microscopic Description Specimen A. SKIN, right mid helix: There are nests of cytologically bland melanocytes within the dermis that mature with depth. 3 4:52 PM [facility] DERMATOPATHOLOGY LABORATORY Disclaimer An external and internal positive and negative controls are appropriate for the histochemical, immunohistochemical and immunofluorescence stain(s) in this case (if any), except where stated explicitly. The performance characteristics of the stain(s) cited in this report were developed and its performance characteristic determined by the Dermatopathology Laboratory at [facility], directed by Dr. Bhupendra Koch. These tests need not be, and therefore are not, approved by the [place] Food and Drug Administration. The tests are used for clinical purposes. Billing Codes Specimen Charges Stain Charges 51237 1 3 4:52 PM [facility] DERMATOPATHOLOGY LABORATORY Embedded Images 3 4:52 PM [facility] DERMATOPATHOLOGY LABORATORY Pathology/Cytolog y TISSUE SPECIMEN FROM SKIN / Unknown 06/20/2022 06/21/2022 4:06 PM [facility] us Checo Sanches MD LAB - PATHOLOGY/CYTOLOGY ORDER JAMI Final Result DERMATOPATHOLOGY LABORATORY [facility] - Department of Dermatology [address], [address] [phone] documented in this encounter Visit Diagnoses Not on filedocumented in this encounter Care Teams Command Post Craftsman Relationship Specialty Start Date End Date Martín Gayle MD PCP - General 05/18/21 documented as of this encounter
--- OUTSIDE RECORDS SUMMARY | 2024-10-25 22:26 | XMS_ITS | Clinical Summary ---
Author Organization [facility] Address [facility] [place] [address] Care Team Providers Care Nutritional Assistant Name Role Phone Martín Gayle MD Primary Care Provider [phone] Allergies No known active allergies Medications meloxicam (MOBIC) 7.5 MG tablet Take 1 tablet (7.5 mg total) by mouth daily as needed. 2 Active losartan (COZAAR) 100 MG tabletIndications :Essential (primary) hypertension losartan 100 mg tablet 2 Active HYDROcodone-aceta minophen (NORCO) 5-325 MG tablet Take 1 tablet by mouth every 12 (twelve) hours as needed. 2 Active rosuvastatin (CRESTOR) 20 MG tabletIndications :Hyperlipidemia, mixed Take 1 tablet (20 mg total) by mouth daily. 90 tablet 4 2 Active vitamin D3, cholecalciferol, 125 mcg capsule Take 1 capsule (125 mcg total) by mouth daily. Active Ascorbic Acid (VITAMIN C) 100 MG tablet Take 1 tablet (100 mg total) by mouth daily. Active HYDROcodone-aceta minophen (NORCO) 7.5-325 MG tabletIndications :Acute Pain < 7 Day Supply Take 1 tablet by mouth every 6 (six) hours as needed for Pain. Indications: Acute Pain < 7 Day Supply 20 tablet 3 Active sildenafil (VIAGRA) 50 MG tablet Take 1 tablet (50 mg total) by mouth daily. 3 Active celecoxib (CELEBREX) 100 MG capsule 3 Active OZEMPIC 2 mg/dose injection (PEN) INJECT 2 MG UNDER THE SKIN EVERY WEEK ON THE SAME DAY OF EACH WEEK Active Active Problems Problem Noted Date Diagnosed Date Sleep apnea 11/23/2022 Benign hypertension 02/05/2019 Immunizations Immunization Administration Dates Next Due Tdap (Generic) 03/09/2017,06/08/2013,11/18/2011 Family History Medical History Relation Comments Heart Attack Maternal Grandfather Open Heart Maternal Grandfather Heart Attack Maternal Grandmother Open Heart Mother Heart Attack Paternal Grandfather Open Heart Paternal Grandfather Valve Disease Paternal Grandfather Stroke Paternal Grandmother Relation Status Comments Father Alive Maternal Grandfather (Age 79) Maternal Grandmother (Age 75) Mother Alive Paternal Grandfather (Age 72) Paternal Grandmother (Age 91) Sister Alive Social History Tobacco Use Types Packs/Day Years Used Date Smoking Tobacco: Former Cigarettes Q uit: 2008 Smokeless Tobacco: Never Tobacco Cessation:Counseling Given: Not Answered Alcohol Use Standard Drinks/Week Comments Not Currently 0 (1 standard drink = 0.6 oz pur e alcohol) 30 years sober Sex and Gender Information Value Date Recorded Sex Assigned at Male 05/14/2024 9:07 AM LABOR SUPERVISOR Legal Sex Male 4:03 PM CDT Gender Identity Not on file Sexual Orientation Not on file Occupation Industry Job Start Date Job End Date [employer] Not on file Not on rico e Not on file Last Filed Vital Signs Vital Sign Reading Time Taken Comments Blood Pressure 118/76 05/14/2024 9:15 AM LABOR SUPERVISOR Pulse 76 05/14/2024 9:15 AM LABOR SUPERVISOR Temperature 36.5 C (97.7 F) 07/13/2022 4:20 PM CDT Respiratory Rate 20 07/13/2022 4:20 PM CDT Oxygen Saturation 98% 05/14/2024 9:15 AM LABOR SUPERVISOR Inhaled Oxygen Concentration - - Weight 116.6 kg (257 lb) 05/14/2024 9:15 AM LABOR SUPERVISOR Height 171.5 cm (5' 7.5) 05/14/2024 9:15 AM LABOR SUPERVISOR Body Mass Index 39.66 05/14/2024 9:15 AM LABOR SUPERVISOR Plan of Treatment Upcoming Encounters Date Type Department Care Team (Late st Contact Info) Description 05/18/2025 11:00 AM LABOR SUPERVISOR [facility] [address] [place] [address] Bashir Vázquez, SUPERVISOR [employer] [facility] [address] [place] [address] Health Maintenance Due Date Last Done Comments Colorectal Cancer Screening Colonoscopy (10 Years) 1971 Annual Physical 1974 Hepatitis C 1989 Hepatitis B Vaccines (1 of 3 - 19+ 3-dose series) 1990 Pneumococcal Vaccine: 50+ Years (1 of 1 - PCV) 2021 Zoster Vaccines (1 of 2) 2021 COVID-19 Vaccine (5 - season) 2023 10/18/2021, 03/05/2021, 07/08/2020, Additional history exists DTaP, Tdap and Td Vaccines (4 - Td or Tdap) 03/09/2027 03/09/2017, 06/08/2013, 11/18/2011 Meningococcal B Vaccine Aged Out No l onger eligible based on patient's age to complete this topic Meningococcal Vaccine Aged Out No grady naman eligible based on patient's age to complete this topic RSV Immunizations Under 20 Months Aged Out No longer eligible based on patient's age to complete this topic Insurance [facility] Care Teams Nutritional Assistant Relationship Specialty Start Date End Date Martín Gayle MD PCP - General FAMILY PRACTICE 11/09/21
[2024-10-25 22:30] VITALS: BP 165/102; PULSE 68; RESP 18; TEMP 36.4; O2SAT 100
[2024-10-25 22:44] LABS: Hematocrit 41.3 % (42.0-52.0); Hemoglobin 13.8 g/dL (14.0-18.0); Immature Granulocyte Percent A 0.2 % (0-0.5); Lymphocytes Absolute Auto 1.85 K/mm3 (0.9-3.2); Mean Corpuscular HGB Conc 33.4 g/dl (32-36); Mean Corpuscular Hemoglobin 29.4 pg (26-34); Mean Corpuscular Volume 87.9 fl (80-100); Nucleated Red Blood Cells Absolute Auto 0.000 K/mm3 (0.0-0.012); Nucleated Red Blood Cells Perc 0.0 % (0.0-0.2); Platelet Count Result 217 k/mm3 (150-375); Red Blood Count 4.70 M/mm3 (4.6-6.20); White Blood Count 8.6 K/mm3 (4.5-10.0)
--- NOTE | 2024-10-25 22:46 | ED_ITS ---
HPI - Abdominal Pain General Chief Complaint: Abdominal Pain Stated Complaint: feels like diverticulitis I had in the past Time Seen by Provider: 10/25/24 22:29 History of Present Illness HPI narrative: Patient is a 54-year-old male who presents to the emergency department this evening complaining of right lower quadrant abdominal pain. States that he does have a history of kidney stones and recently had lithotripsy performed last week but states that his right lower quadrant abdominal pain feels more like a diverticulitis flare up rather than a kidney stone. Admits that there is slight radiation to his right flank pain is mainly in the right lower quadrant. Admits to nausea denies any vomiting episodes. Denies any recent illness, fevers or chills. Denies any constipation admits to loose stools. Admits to hematuria but denies any dysuria. No additional symptoms or concerns at this time. Related Data Home Medications ?Medication ?Instructions ?Recorded ?Confirmed ?Last Taken ?Type hydrocodone 5 mg-acetaminophen 325 5 - 325 tablet PO Q12-24H PRN Pain 05/06/21 06/30/24 05/15/21 History mg tablet losartan 100 mg tablet 100 mg PO DAILY 05/06/21 06/30/24 05/15/21 History rosuvastatin 10 mg tablet 10 mg PO DAILY 05/06/21 06/30/24 05/15/21 History rosuvastatin 20 mg tablet 20 mg PO DAILY 06/30/24 06/30/24 Unknown History semaglutide 2 mg/dose (8 mg/3 mL) 2 mg subcut WEEKLY 06/30/24 06/30/24 Unknown History subcutaneous pen injector (Ozempic) Allergies Allergy/AdvReac Type Severity Reaction Status Date / Time No Known Allergies Allergy Verified 10/25/24 22:33 Review of Systems 2 Review of Systems: All systems are reviewed and are negative unless stated otherwise in the HPI. [facility] Past Medical History Medical History Chronic back pain Hyperlipidemia HTN (hypertension) Morbid obesity Surgical History Surgical History History of appendectomy Family History Family History Mother Family history of obesity Family history of malignant melanoma Father Patient's father is in good health Hypertension Sibling Patient's sister is in good health Social History Social History Smoking packs per day: 1 Smoking cigarettes per day: 20.0 Years smoked: 25 Smoking pack-years: 25.00 Smoking status: Former smoker Alcohol intake: current Substance use: current Substance use type: marijuana Other substance usage details: vape marijuana for sleep Living arrangements: with family Additional living arrangements comments: Spiritual care concerns: No Exam 2 Narrative: General: Alert, awake, afebrile, in moderate distress secondary to pain. HEENT: PERRL, no rhinorrhea, no post nasal drip, oropharynx clear. Neck: Trachea midline, no JVD, no lymphadenopathy. Cardiovascular: Regular rate and rhythm, no murmurs, rubs or gallops, no peripheral edema. Respiratory: Clear to auscultation bilaterally, no tachypnea, no wheezing, no rhonchi, no rubs, no respiratory distress. Abdomen: Soft, no reproducible tenderness palpation over all quadrants, nondistended, no rebound, no guarding, no peritoneal signs. Musculoskeletal: No joint swelling or deformity, normal muscle tone. Skin: No rashes or petechia, no signs of infection. Psychiatric: Alert and oriented, normal behavior and judgment for situation. Neurological: Alert and oriented to person, place, and time. Follows all commands. No focal deficits, speech is clear and fluent. Course Vital Signs Vital signs: Vital Signs Temperature 97.6 F 10/25/24 22:30 Pulse Rate 68 10/25/24 22:30 Respiratory Rate 18 10/25/24 22:30 Blood Pressure 165/102 H 10/25/24 22:30 Pulse Oximetry 100 10/25/24 22:30 Oxygen Delivery Room Air 10/25/24 22:30 Temperature 97.6 F 10/25/24 22:30 Pulse Rate 67 10/25/24 23:02 Respiratory Rate 20 10/25/24 23:02 Blood Pressure 157/96 H 10/25/24 23:02 Pulse Oximetry 96 10/25/24 23:02 Oxygen Delivery Room Air 10/25/24 22:30 MDM - Abdominal Pain MDM Narrative Medical decision making narrative: The patient was evaluated by myself in the emergency department. History is obtained from patient who is an independent historian and physical exam was performed. External medical records were reviewed at this time. IV was established and pertinent tests were ordered. Patient was administered 4 mg of IV morphine and 4 mg of IV Zofran for pain and nausea. Laboratory results obtained revealing no acute process. Urinalysis revealed hematuria otherwise no evidence of infection. Imaging studies obtained included CT abdomen pelvis with IV contrast which was independently interpreted by me revealing moderate right-sided hydronephrosis with 3 right-sided proximal ureteral stones largest measuring 0.6 cm, which is pending final radiology interpretation. Case was discussed with the on-call urologist Dr. Rome at 0100 who informed that this is to be expected after lithotripsy, patient should be able to pass the stone without any difficulty specially that his pain is currently controlled. Differential diagnosis considerations include nephrolithiasis/renal colic, diverticulitis, appendicitis, gastroenteritis. Comorbidities impacting this visit include history of kidney stones and diverticulitis. I have evaluated and discussed social determinants of health with the patient that could potentially impact subsequent diagnosis and treatment plans. On repeat assessment of the patient, reevaluation revealed that the patient is doing well and is in no acute distress. Patient symptoms have improved since he arrived to our emergency department. Repeat vital signs were all reviewed and noted to be stable. Differential diagnosis and treatment plan were discussed with the patient at bedside. Patient agrees with discussion and after shared medical decision making agrees with discharge. All questions were answered to the patient's satisfaction. Patient will follow up with Urology in 3-5 days. Scripts for Flomax, Zofran, ibuprofen and [place] were sent to patient's pharmacy to take as prescribed to help pass his kidney stone. He was administered a dose of Toradol 15 mg prior to discharge. Patient was provided with strict return precautions and instructed to return to the emergency department if any new or worsening symptoms develop. The patient was discharged in stable condition. Lab Data 10/25/24 22:36 10/25/24 22:36 Labs: Lab Results 10/25/24 Range/Units 22:36 WBC 8.6 (4.5-10.0) K/mm3 RBC 4.70 (4.6-6.20) M/mm3 Hgb 13.8 L (14.0-18.0) g/dL Hct 41.3 L (42.0-52.0) % MCV 87.9 (80-100) fl MCH 29.4 (26-34) pg MCHC 33.4 (32-36) g/dl RDW 13.5 (11.5-14.5) % Plt Count 217 (150-375) k/mm3 MPV 11.2 H (7.4-10.4) fl Immature Gran % (Auto) 0.2 (0-0.5) % Neut % (Auto) 62.8 (45.5-73.1) % Lymph % (Auto) 21.4 (18.3-44.2) % [place] % (Auto) 12.3 H (2.6-8.5) % Eos % (Auto) 2.7 (0-4.4) % Baso % (Auto) 0.6 (0.2-1.2) % Lymph # (Auto) 1.85 (0.9-3.2) K/mm3 [place] # (Auto) 1.1 H (0.1-0.6) K/mm3 Eos # (Auto) 0.2 (0-0.3) K/mm3 Baso # (Auto) 0.1 (0.0-0.1) K/mm3 Abs Immat Gran (auto) 0.02 (0.00-0.031) K/mm3 Absolute Neuts (auto) 5.4 (1.3-6.7) K/mm3 Absolute Nucleated RBC 0.000 (0.0-0.012) K/mm3 Nucleated RBC % 0.0 (0.0-0.2) % Sodium 139 (137-145) mmol/L Potassium 3.9 (3.4-5.0) mmol/L Chloride 101 (98-107) mmol/L Carbon Dioxide 30 (22-30) mmol/L Anion Gap 8 (4-12) mmol/L BUN 14 (9-20) mg/dL Creatinine 1.00 (0.7-1.3) mg/dL Estim Creat Clear Calc Not Reportable Estimated GFR > 60 (59 - ) Glucose 101 (65-110) mg/dL Calcium 9.9 (8.4-10.2) mg/dL Magnesium 2.2 (1.6-2.3) mg/dL Total Bilirubin 0.4 (0.2-1.3) mg/dL AST 36 (17-59) U/L ALT 25 (6-50) U/L Alkaline Phosphatase 54 (38-126) U/L Total Protein 7.7 (6.3-8.2) g/dL Albumin 4.5 (3.5-5.1) g/dL Lipase 244 (23-300) U/L Urine Color Yellow (Yellow) Urine Appearance Clear (Clear) Urine pH 8.0 (5.0-9.0) Ur Specific [place] 1.009 (1.001-1.035) Urine Protein Trace (Negative) mg/dL Urine Glucose (UA) Negative (Negative) mg/dL Urine Ketones Negative (Negative) mg/dL Ur Blood (Man) 3+ H (Negative) Urine Nitrate Negative (Negative) Urine Bilirubin Negative (Negative) Urine Urobilinogen 0.2 (<2.0) mg/dL Leukocyte Esterase Rfl Negative (Negative) LEDY/UL Urine RBC >100 H (0-2) /hpf Urine WBC 0-5 (0-3) /hpf Ur Squamous Epith Cells None seen (Few) /hpf Urine Bacteria None seen /hpf Urine Casts 0-2 Discharge Plan Discharge Clinical Impression: Kidney stone on right side Patient Disposition: Home Condition: Improved Instructions: Antibiotic Form, Kidney Stones (ED) Additional Instructions: Please follow-up with your urologist within the next 3-5 days. Use the prescribed medications as instructed to help passed 2 kidney stone. Return to ED if any new or worsening symptoms develop. Patient Language: New Zealander Prescriptions: New hydrocodone-acetaminophen 5-325 mg tablet 1 tablet PO Q8H PRN (Reason: pain) Qty: 10 0RF ondansetron 4 mg tablet,disintegrating 4 mg PO Q8H PRN (Reason: nausea and vomiting) Qty: 14 0RF tamsulosin [Flomax] 0.4 mg capsule 0.4 mg PO DAILY Qty: 14 0RF ibuprofen 400 mg tablet 400 mg PO TID PRN (Reason: pain) Qty: 20 0RF No Action hydrocodone-acetaminophen 5-325 mg tablet 1 tablet PO Q8H PRN (Reason: pain) Qty: 14 0RF hydrocodone-acetaminophen 5-325 mg tablet 5 - 325 tablet PO Q12-24H PRN (Reason: Pain) losartan 100 mg tablet 100 mg PO DAILY rosuvastatin 10 mg tablet 10 mg PO DAILY rosuvastatin 20 mg tablet 20 mg PO DAILY Ozempic 2 mg/dose (8 mg/3 mL) pen injector 2 mg SUBCUT WEEKLY Follow-up/Referrals: Martín Gayle MD [Primary Care Provider] - Chris Haley MD [Physician] - 3 Days Time of Disposition: 01:13
[2024-10-25 22:48] LABS: Add Urine Microscopic? YES; Appearance Urine Clear (Clear); Glucose Urine UA Negative (Negative); Leukocyte Esterase Ur Negative LEU/UL (Negative); Nitrate Urine Negative (Negative); Non Pathogenic Casts 0-2; Specific Grav Ur 1.009 (1.001-1.035)
[2024-10-25] MEDS: ONDANSETRON INJ 4 MG/2 ML VIAL IV PUSH (22:52)
[2024-10-25] MEDS: MORPHINE SULFATE (*CRX) 4 MG/ML INJ IV PUSH (22:52)
[2024-10-25 22:56] LABS: Magnesium 2.2 mg/dL (1.6-2.3)
--- OUTSIDE RECORDS SUMMARY | 2024-10-25 22:58 | XMS_ITS | Clinical Summary ---
Author Organization [facility] Address [address] [place] [address] Care Team Providers Care Knocker Out Name Role Phone Martín Gayle MD Primary Care Provider [phone] Source Comments [facility] [employer],non-owned Affiliates and Associated Physician Practices is amultiple site organization consisting of ambulatory clinics and hospital sitesin [place], [place], [place] and [place]. This disclosure is being madepursuant to the Care Everywhere program and may not contain all information available regarding this patient. Last updated 18.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
--- OUTSIDE RECORDS SUMMARY | 2024-10-25 22:58 | XMS_ITS | Clinical Summary ---
Author Organization 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 [employer] Not on file Not on rico e Not on file Last Filed Vital Signs Vital Sign Reading Time Taken Comments Blood Pressure 118/76 05/14/2024 9:15 AM OIL FIELD ROUSTABOUT Pulse 76 05/14/2024 9:15 AM OIL FIELD ROUST[employer]OUT Temperature 36.5 C (97.7 F) 07/13/2022 4:20 PM CDT Respiratory Rate 20 07/13/2022 4:20 PM CDT Oxygen Saturation 98% 05/14/2024 9:15 AM OIL FIELD ROUSTABOUT Inhaled Oxygen Concentration - - Weight 116.6 kg (257 lb) 05/14/2024 9:15 AM OIL FIELD ROUSTABOUT Height 171.5 cm (5' 7.5) 05/14/2024 9:15 AM OIL FIELD ROUSTABOUT Body Mass Index 39.66 05/14/2024 9:15 AM OIL FIELD ROUSTABOUT Plan of Treatment Upcoming Encounters Date Type Department Care Team (Late st Contact Info) Description 05/18/2025 11:00 AM OIL FIELD ROUSTABOUT [facility] [address] [place] [address] Bashir Vázquez, BOWL TOPPER [facility] [address] [place] [address] Health Maintenance Due Date Last Done Comments [...] patient's age to complete this topic Insurance [facility] Care Teams Enterprise Application Developer Relationship Specialty Start Date End Date Martín Gayle MD PCP - General FAMILY PRACTICE 11/09/21
--- OUTSIDE RECORDS SUMMARY | 2024-10-25 22:58 | XMS_ITS | Encounter Summary ---
Author Organization [facility] Address [address] [place] [address] Care Team Providers Care Manager Roofing Name Role Phone Martín Gayle MD Primary Care Provider [phone] Encounter Details Date Type Department Care Team (Late st Contact Info) Description 06/21/2022 Lab Requisition [facility] [address] [place] [address] Checo Sanches MD [address] [place] [address] Social History Tobacco Use Types Packs/Day Years Used Date Smoking Tobacco: Never Alcohol Use Standard Drinks/Week Comments No 0 (1 standard drink = 0.6 oz pur e alcohol) Sex and Gender Information Value Date Recorded Sex Assigned at Not on file Legal Sex Male 2:00 PM SPRAY PAINTER Gender Identity Not on file Sexual Orientation Not on file documented as of this encounter Plan of Treatment Not on file documented as of this encounter Procedures Procedure Name Priority Date/Time Associated Diagnosis Comments DERMATOPATHOLOGY Routine 06/20/2022 12:0 0 AM SPRAY PAINTER documented in this encounter Results * DERMATOPATHOLOGY (06/20/2022 12:00 AM SPRAY PAINTER) Case Report Dermatopathology Report Case: [id number] Authorizing Provider: Checo Sanches MD Collected: 06/20/2022 12:00 AM Ordering Location: [facility] Received: 06/21/2022 04:06 PM Pathologist: Darcy Victor MD Specimen: Skin, right mid helix 4:52 PM SPRAY PAINTER DERMATOPATHOLOGY LABORATORY Final Diagnosis Specimen A. 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 Fibroma vs. BCCA. Path# [id number] 3 4:52 PM [facility] DERMATOPATH[facility] Gross Description Specimen A: Received is one formalin filled container labeled with the patient's name and designated right mid helix. The specimen consists of a shave biopsy measuring [id number]. Jar 0. 3 4:52 PM [facility] DERMATOPATHOLOGY [facility]ORATORY Microscopic Description Specimen A. SKIN, right mid helix: There are nests of cytologically bland melanocytes within the dermis that mature with depth. 3 4:52 PM [facility] DERMATOPATHOLOGY LABORATORY Disclaimer An external and internal positive and negative controls are appropriate for the histochemical, immunohistochemical and immunofluorescence stain(s) in this case (if any), except where stated explicitly. The performance characteristics of the stain(s) cited in this report were developed and its performance characteristic determined by the Dermatopathology Laboratory at [facility], directed by Dr. Bhupendra Koch. These tests need not be, and therefore are not, approved by the [place] Food and Drug Administration. The tests are used for clinical purposes. Billing Codes Specimen Charges Stain Charges 19201 1 3 4:52 PM [facility] DERMATOPATH[facility] Embedded Images 3 4:52 PM [facility] DERMAT[facility]ORY Pathology/Cytolog y TISSUE SPECIMEN FROM SKIN / Unknown 06/20/2022 06/21/2022 4:06 PM [facility] us Checo Sanches MD LAB - PATHOLOGY/CYTOLOGY ORDER JAMI Final Result DERMATOPATHOLOGY LABORATORY [facility] - Department of Dermatology [address], [address] [phone] documented in this encounter Visit Diagnoses Not on filedocumented in this encounter Care Teams Manager Roofing Relationship Specialty Start Date End Date Martín Gayle MD PCP - General 05/18/21 documented as of this encounter
--- OUTSIDE RECORDS SUMMARY | 2024-10-25 22:58 | XMS_ITS | Continuity of Care Document ---
Author Organization [facility] Address [address] [place] [address] [place] [address] Phone Care Team Providers Care Fiscal Manager Name Role Phone Martín Gayle MD [...] one hour before active, max 1/24 hour [place] 7.5 mg-325 mg tablet take 1 tablet [...] Providers Copied on Encounter OFFICE/OUTPA TIENT VISIT, [facility], [address], [place], [place], [address], [place] tel:[phone] [facility] renal stone1 (chief complaint) renal1 (chief complaint) gallstone (chief complaint) Renal stoneOther cholelithiasis without obstructionNeoplasm of unspecified behavior of left kidney 0 5 Irwin Resendiz. [address], [place], [place], [address] , [place]. tel:[phone] OFFICE/OUTPA TIENT VISIT, [facility], [address], [place], [place], [address], [place] tel:[phone] [facility] HLP (chief complaint) HTN (chief complaint) DM (chief complaint) colon (chief complaint) Essential (primary) hypertensionPolyp of colonMixed hyperlipidemiaType 2 diabetes mellitus without complicationsObstru ctive sleep apnea hypopnea 5 Gayle Martín. [address], [place], [place], [address] , [place]. tel:[phone] PREV VISIT, EST, AGE 40-64 [facility], [address], [place], [place], [address], [place] tel:[phone] [facility] physical (chief complaint) Encounter for general adult medical exam w abnormal findingsEssential (primary) hypertensionAbnorma l weight lossMixed hyperlipidemiaMale erectile dysfunction, unspecifiedPolyp of colonType 2 diabetes mellitus without complications 4 Gayle Martín. [address], [place], [place], [address] , [place]. tel:[phone] OFFICE/OUTPA TIENT VISIT, [facility], [address], [place], [place], [address], [place] tel:[phone] [facility] HTN (chief complaint) HLP (chief complaint) sleep apnea1 (chief complaint) DM (chief complaint) Essential (primary) hypertensionType 2 diabetes mellitus without complicationsMixed hyperlipidemiaObstr uctive sleep apnea hypopneaAbnormal weight loss 4 Irwin Cordova [address], [place], [place], [address] , [place]. tel: [phone] OFFICE/OUTPA TIENT VISIT, [facility], [address] [place] [address], [place] tel:[phone] [facility] HLP (chief complaint) DM (chief complaint) HTN (chief complaint) nausea1 (chief complaint) dysuria1 (chief complaint) DysuriaMixed hyperlipidemiaType 2 diabetes mellitus without complicationsAbnorm al weight lossGERD w/o esophagitisEssentia l (primary) hypertension 4 Irwin Cordova [address], [place], [place], [address] , [place]. tel: [phone] OFFICE/OUTPA TIENT VISIT, [facility], [address] [place], [address], [place] tel:[phone] [facility] UTI1 (chief complaint) DM (chief complaint) HLP (chief complaint) DysuriaType 2 diabetes mellitus without complicationsAbdomi nal painMixed hyperlipidemia 4 Irwin Cordova [address], [place], [place], [address] , [place]. tel: [phone] OFFICE/OUTPA TIENT VISIT, [facility], [address] [place], [address], [place] tel:[phone] [facility] HLP (chief complaint) GI (chief complaint) DM (chief complaint) weight loss1 (chief complaint) Mixed hyperlipidemiaType 2 diabetes mellitus without complicationsAbnorm al weight lossIrritable bowel syndrome 4 Irwin Resendiz. [address], [place], [place], [address] , [place]. tel: [phone] OFFICE/OUTPA TIENT VISIT, [facility], [address] [place] [address], [place] tel:[phone] [facility] DM (chief complaint) HLP (chief complaint) GI (chief complaint) Type 2 diabetes mellitus without complicationsIrrita ble bowel syndromeMixed hyperlipidemiaOccul t blood in stool 4 Irwin Cordova [address], [place], [place], [address] , [place]. tel:[phone] OFFICE/OUTPA TIENT VISIT, [facility], [address], [place], [place], [address], [place] tel:[phone] [facility] cough1 (chief complaint) Acute bronchitis 3 Irwin Cordova [address], [address], [place], [place], [address] , [place]. tel:[phone] PREV VISIT, EST, AGE 40-64 [facility], [address], [place], [place], [address], [place] [phone] [facility] physical (chief complaint) Encounter for general adult medical exam w abnormal findingsOccult blood in stoolMale erectile dysfunction, unspecifiedMixed hyperlipidemiaEssen tial (primary) hypertensionPrimary central sleep apnea 3 Irwin Cordova [address], [place], [place], [address] , [place]. tel:[phone] OFFICE/OUTPA TIENT VISIT, EST [facility], [address], [place], [place], [address], [place] tel:[phone] [facility] bleeding1 (chief complaint) sleep apnea1 (chief complaint) Occult blood in stoolPrimary central sleep apneaHypertrophy of nasal turbinates 3 Irwin Cordova [address], [place], [place], [address] , [place]. [phone] Referring Provider: Aggie [address], [place], [place], [address]. tel:[phone] OFFICE/OUTPA TIENT VISIT, [facility], [address], [place], [place], [address], [place] tel:[phone] [facility] septum1 (chief complaint) ED (chief complaint) nausea1 (chief complaint) Hypertrophy of nasal turbinatesMale erectile dysfunction, unspecifiedPrimary central sleep apneaNausea w/o vomiting Mar-0 3 Irwin Resendiz. [address], [place], [place], [address] , [place]. tel:[phone] Referring Provider: Aggie [address], [place], [place], [address]. tel:[phone] OFFICE/OUTPA TIENT VISIT, [facility], [address], [place], [place], [address], [place] tel:[phone] [facility] sleep apnea1 (chief complaint) ED (chief complaint) Primary central sleep apneaHypertrophy of nasal turbinatesMale erectile dysfunction, unspecified 3 Irwin Resendiz. [address], [place], [place], [address] , [place]. tel:[phone] Referring Provider: Aggie Jefferson [address], [place], [place], [address]. tel:[phone] OFFICE/OUTPA TIENT VISIT, [facility], [address], [place], [place], [address], [place] tel:[phone] [facility] HTN (chief complaint) ED (chief complaint) glucose1 (chief complaint) HLP (chief complaint) Mixed hyperlipidemiaPrima ry central sleep apneaEssential (primary) hypertensionHypergl ycemiaMale erectile dysfunction, unspecified 2 Irwin Resendiz. [address], [place], [place], [address] , [place]. tel:[phone] Referring Provider: Aggie Jefferson [address], [place], [place], [address]. tel:[phone] OFFICE/OUTPA TIENT VISIT, [facility], [address], [place], [place], [address], [place] tel:[phone] [facility] liver lesions1 (chief complaint) HTN (chief complaint) Liver diseaseMixed hyperlipidemia Jan- 2 Irwin Resendiz. [address], [place], [place], [address] , [place]. tel:[phone] Referring Provider: Aggie Jefferson [address], [place], [place], [address]. tel:[phone] OFFICE/OUTPA TIENT VISIT, [facility], [address], [place], [place], [address], [place] tel:[phone] [facility] abd pain1 (chief complaint) Acute appendicitis without localized peritonitisOther specified diseases of liverOther cholelithiasis without obstruction 2 Irwin Resendiz. [address], [place], [place], [address] , [place]. tel:[phone] Referring Provider: Aggie Jefferson [address], [place], [place], [address]. tel:[phone] OFFICE/OUTPA TIENT VISIT, [facility], [address], [place], [place], [address], [place] tel:[phone] [facility] abd pain1 (chief complaint) Umbilical herniaLower abdominal pain, unspecifiedOccult blood in stool Nov- 2 Irwin Cordova [address], [place], [place], [address] , [place]. tel:[phone] Referring Provider: Aggie Jefferson [address], [place], [place], [address]. tel:[phone] OFFICE/OUTPA TIENT VISIT, [facility], [address], [place], [place], [address], [place] tel:[phone] [facility] HTN (chief complaint) sleep apnea1 (chief complaint) HLP (chief complaint) Essential (primary) hypertensionMixed hyperlipidemiaPrima ry central sleep apnea 2 Irwin Resendiz. [address], [place], [place], [address] , [place]. tel:[phone] Referring Provider: [address], [place], [place], [address]. tel:[phone] PREV VISIT, EST, AGE 40-64 [facility], [address], [place], [place], [address], [place] tel:[phone] [facility] physical (chief complaint) Encounter for general adult medical exam w abnormal findingsPolyp of colonEssential (primary) hypertensionMixed hyperlipidemiaPrima ry central sleep apnea 2 Irwin Cordova [address], [place], [place], [address] , [place]. [phone] Referring Provider: [address]ie [address], [place], [place], [address]. tel:[phone] OFFICE/OUTPA TIENT VISIT, EST [facility], [facility] [address], [place], [place], [address], [place] tel:[phone] [facility] HTN (chief complaint) HLP (chief complaint) colon polyp1 (chief complaint) Polyp of colonEssential (primary) hypertensionHyperli pidemia 1 Irwin Cordova [address], [place], [place], [address] , [place]. tel:[phone] Referring Provider: [address], [place], [place], [address]. tel:[phone] PREV VISIT, EST, AGE 40-64 [facility], [address], [place], [place], [address], [place] tel:[phone] [facility] physical (chief complaint) Encounter for general adult medical exam w abnormal findingsEssential (primary) hypertensionHyperli pidemiaHyperglycemi aPolyp of colon 1 Irwin Cordova [address], [place], [place], [address] , [place]. [phone] Referring Provider: Aggie Jefferson [address], [place], [place], [address]. tel:[phone] PREV VISIT, EST, AGE 40-64 [facility], [address], [place], [place], [address], [place] tel:[phone] [facility] physical (chief complaint) HyperlipidemiaHyper glycemiaAthlete's footEssential (primary) hypertensionEncount er for general adult medical exam w abnormal findingsHerpes simplex infectionDisorder of penisEncounter for general adult medical examination without abnormal findings 0 Irwin Resendiz. [address], [place], [place], [address] , [place]. tel:[phone] Referring Provider: Aggie Jefferson [facility], [place], [place], [address]. tel:[phone] OFFICE/OUTPA TIENT VISIT, [facility], [address], [place], [place], [address], [place] tel:[phone] [facility] Athletic foot1 (chief complaint) penile lesion1 (chief complaint) HLP (chief complaint) glucose1 (chief complaint) sick (chief complaint) Athlete's footHyperlipidemiaH yperglycemiaViral infectionDisorder of penis 0 Irwin Resendiz. [address], [place], [place], [address] , [place]. tel:[phone] Referring Provider: Aggie Jefferson [address] [facility] A, [place], [place], [address]. tel:[phone] OFFICE/OUTPA TIENT VISIT, [facility], [address], [place], [place], [address], [place] tel:[phone] [facility] hand rash1 (chief complaint) back pain1 (chief complaint) foot fugus1 (chief complaint) HLP (chief complaint) Athlete's footEczemaChronic pain syndromeHyperlipide leland 0 Irwin Cordova [address], [place], [place], [address] , [place]. tel:[phone] Referring Provider: Aggie Jefferson [facility] A, [place], [place], [address]. tel:[phone] OFFICE/OUTPA TIENT VISIT, [facility], [address], [place], [place], [address], [place] tel:[phone] [facility] chronic pain1 (chief complaint) hLP (chief complaint) glucose1 (chief complaint) foot itch (chief complaint) rash1 (chief complaint) HyperlipidemiaHyper glycemiaChronic pain syndromeEczemaAthle te's foot 8202 0 Irwin Cordova [address], [place], [place], [address] , [place]. tel:[phone] Referring Provider: Aggie Jefferson [address], [place], [place], [address]. tel:[phone] OFFICE/OUTPA TIENT VISIT, [facility], [address], [place], [place], [address], [place] tel:[phone] [facility] neck pain1 (chief complaint) back pain1 (chief complaint) HTN (chief complaint) Other spondylosis, cervical regionOther spondylosis, lumbar regionEssential (primary) hypertension Mar-3 0-201 9 Irwin Cordova [address], [place], [place], [address] , [place]. tel:[phone] Referring Provider: [address]ie [address], [place], [place], [address]. tel:[phone] OFFICE/OUTPA TIENT VISIT, [facility], [address], [place], [place], [address], [place] tel:[phone] [facility] neck pain1 (chief complaint) tinea1 (chief complaint) back pain1 (chief complaint) HTN (chief complaint) Body mass index (BMI) 40.0-44.9, adultAthlete's footChronic pain syndromeRadiculopat hy, cervical regionEssential (primary) hypertension Mar-0 3-201 9 Irwin Mar[address], [place], [place], [address] , [place]. tel:[phone] Referring Provider: Aggie Jefferson [address], [place], [place], [address]. tel:[phone] OFFICE/OUTPA TIENT VISIT, [facility], [address], [place], [place], [address], [place] [phone] [facility] athlete foot (chief complaint) Athlete's footFatty liverCellulitis of right lower limb 9 Irwin Resendiz. [address], [place], [place], [address] , [place]. tel:[phone] Referring Provider: Aggie [address], [place], [place], [address]. tel:[phone] PREV VISIT, EST, AGE 40-64 [facility], [address], [place], [place], [address], [place] [phone] [facility] PHysical (chief complaint) Encounter for general adult medical exam w abnormal findingsHematuriaHy perlipidemiaEssenti al (primary) hypertensionAbnorma l weight lossOtalgia, right earLumbago 9 Irwin Resendiz. [address], [place], [place], [address] , [place]. tel:[phone] Referring Provider: Aggie [address], [place], [place], [address]. tel:[phone] OFFICE/OUTPA TIENT VISIT, [facility], [address], [place], [place], [address], [place] tel:[phone] [facility] HLP (chief complaint) HTN (chief complaint) neck pain1 (chief complaint) wart1 (chief complaint) HyperlipidemiaRadic ulopathy, cervical regionPlantar wartEssential (primary) hypertension 9 Irwin Resendiz. [address], [place], [place], [address] , [place]. tel:[phone] Referring Provider: Aggie [address], [place], [place], [address]. tel:[phone] OFFICE/OUTPA TIENT VISIT, [facility], [address], [place], [place], [address], [place] tel:[phone] [facility] hematuria1 (chief complaint) HLP (chief complaint) back pain1 (chief complaint) HematuriaHyperlipid emiaChronic pain syndrome 9 Irwin Resendiz. [address], [place], [place], [address] , [place]. tel:[phone] Referring Provider: Martín Gayle, [address], [place], [place], [address]. tel:[phone] OFFICE/OUTPA TIENT VISIT, [facility], [address], [place], [place], [address], [place] tel:[phone] [facility] HTN (chief complaint) abdominal pain1 (chief complaint) HLP (chief complaint) UTI1 (chief complaint) HyperlipidemiaAbdom inal painEssential (primary) hypertensionUrinary tract infection Irwin Resendiz. [address], [place], [place], [address] , [place]. tel:[phone] Referring Provider: Aggie Jefferson [address], [place], [place], [address]. tel:[phone] OFFICE/OUTPA TIENT VISIT, [facility], [address], [place], [place], [address], [place] tel:[phone] [facility] HTN (chief complaint) fatty liver1 (chief complaint) abd pain1 (chief complaint) HLP (chief complaint) Polyp of colonHyperlipidemia Fatty liverOther cholelithiasis without obstructionEssentia l (primary) hypertension 8 Irwin Resendiz. [address], [place], [place], [address] , [place]. tel:[phone] Referring Provider: Aggie Jefferson [address], [place], [place], [address]. tel:[phone] OFFICE/OUTPA TIENT VISIT, [facility], [address], [place], [place], [address], [place] tel:[phone] [facility] abdominal pain1 (chief complaint) HTN (chief complaint) colon polyp1 (chief complaint) Body mass index (BMI) 40.0-44.9, adultAbdominal painEssential (primary) hypertensionUmbilic al herniaPolyp of colon 8 Irwin Cordova [address], [place], [place], [address] , [place]. tel:[phone] Referring Provider: Aggie [address], [place], [place], [address]. tel:[phone] OFFICE/OUTPA TIENT VISIT, [facility], [address], [place], [place], [address], [place] tel:[phone] [facility] HTN (chief complaint) abd pain1 (chief complaint) travel1 (chief complaint) HLp (chief complaint) Essential (primary) hypertensionAbdomin al painEncounter for antibody response examinationHyperlip idemia 8 Irwin Cordova [address], [place], [place], [address] , [place]. tel:[phone] Referring Provider: Aggie Jefferson [facility] [address], [place], [place], [address]. tel:[phone] PREV VISIT, EST, AGE 40-64 [facility], [address], [place], [place], [address], [place] tel:[phone] [facility] abdominal pain1 (chief complaint) HTN (chief complaint) sleep apnea1 (chief complaint) HLP (chief complaint) Abdominal painEssential (primary) hypertensionSleep apneaEncounter for general adult medical exam w abnormal findingsHyperlipide leland 8 Irwin Cordova [address], [place], [place], [address] , [place]. tel:[phone] Referring Provider: Aggie [address], [place], [place], [address]. tel:[phone] OFFICE/OUTPA TIENT VISIT, [facility], [address], [place], [place], [address], [place] tel:[phone] [facility] HTN (chief complaint) sleep apnea1 (chief complaint) shoulder pain1 (chief complaint) Body mass index (BMI) 39.0-39.9, adultSleep apneaEssential (primary) hypertensionAnterio r chest-wall painPain in right shoulder 8 Irwin Cordova [address], [place], [place], [address] , [place]. tel:[phone] Referring Provider: Aggie Jefferson [address], [place], [place], [address]. tel:[phone] OFFICE/OUTPA TIENT VISIT, [facility], [address], [place], [place], [address], [place] tel:[phone] [facility] neck pain1 (chief complaint) weight gain1 (chief complaint) back pain1 (chief complaint) LymphadenopathyLumb agoBody mass index (BMI) 40.0-44.9, adult 8 Irwin Cordova [address], [place], [place], [address] , [place]. tel:[phone] Referring Provider: Aggie Jefferson [address], [place], [place], [address]. tel:[phone] OFFICE/OUTPA TIENT VISIT, [facility], [address], [place], [place], [address], [place] tel:[phone] [facility] HTN (chief complaint) hand numbness1 (chief complaint) sleep apnea1 (chief complaint) obesity1 (chief complaint) Sleep apneaEssential (primary) hypertensionAbnorma l weight gainParesthesia of skin 8 Irwin Cordova [address], [place], [place], [address] , [place]. tel:[phone] Referring Provider: Aggie [address], [place], [place], [address]. tel:[phone] OFFICE/OUTPA TIENT VISIT, [facility], [address], [place], [place], [address], [place] tel:[phone] [facility] sleep apnea (chief complaint) sleep apnea1 (chief complaint) back pain1 (chief complaint) obesity1 (chief complaint) Sleep apneaBody mass index (BMI) 40.0-44.9, adultLumbagoEssenti al (primary) hypertension 7 Irwin Resendiz. [address], [place], [place], [address] , [place]. tel:[phone] Referring Provider: Aggie Jefferson [address], [place], [place], [address]. tel:[phone] OFFICE/OUTPA TIENT VISIT, [facility], [address], [place], [place], [address], [place] tel:[phone] [facility] HLP (chief complaint) vitamin D (chief complaint) cough1 (chief complaint) HTN (chief complaint) sleep disorder1 (chief complaint) HyperlipidemiaVitam in D deficiency, unspecifiedCoughEss ential (primary) hypertension 7 Irwin Resendiz. [address], [place], [place], [address] , [place]. tel:[phone] Referring Provider: Aggie Jefferson [address], [place], [place], [address]. tel:[phone] OFFICE/OUTPA TIENT VISIT, [facility], [address], [place], [place], [address], [place] tel:[phone] [facility] cough1 (chief complaint) HTN (chief complaint) obesity1 (chief complaint) CoughEssential (primary) hypertensionBody mass index (BMI) 40.0-44.9, adult 7 Irwin Resendiz. [address], [place], [place], [address] , [place]. [phone] Referring Provider: Aggie Jefferson [address], [place], [place], [address]. tel:[phone] OFFICE/OUTPA TIENT VISIT, [facility], [address], [place], [place], [address], [place] tel:[phone] [facility] cough1 (chief complaint) HTN (chief complaint) Acute bronchitis, unspecifiedEssentia l (primary) hypertension 7 Irwin Resendiz. [address], [place], [place], [address] , [place]. [phone] Referring Provider: Martín Gayle, [address], [place], [place], [address]. tel:[phone] PREV VISIT, NEW, AGE 40-64 [facility], [address], [place], [place], [address], [place] tel:[phone] [facility] PHysical (chief complaint) Encounter for general adult medical exam w abnormal findingsEssential (primary) hypertensionSleep apneaAcute bronchitis, unspecified 7 Irwin Resendiz. [address], [place], [place], [address] , [place]. tel:[phone] Referring Provider: Martín Gayle, [address], [place], [place], [address]. tel:[phone] [facility], [address], [place], [place], [address], [place] tel:[phone] [facility] No Information 7 Irwin Resendiz. [address], [place], [place], [address] , [place]. tel:[phone] Family History Family Member Type Diagnosis Age At Onset Mother Problem (finding) Melanoma Father Problem (finding) Hypertension Mother Problem (finding) CABG 69 Father Problem (finding) ? 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 SANTIAGO YEAGER. Evaluate and treat ordered Referral Referred To: Mickey Gillespie MD [address] [facility] [address] [place], [place], [phone] Ordered: Referrals: Mickey Gillespie MD Evaluate and treat ordered Referral Ordered: [facility]UC MED HIDA (HEPATOBILIARY) SCAN ordered Referral Ordered: US EXAM, ABDOM, COMPLETE ordered Referral Ordered: Sukhi Causey (related to Carpal tunnel syndrome of arm) ordered Referral Referred To: Sukhi Causey [address] [place], [place] [id number] Ordered: Referrals: Sukhi Causey. Evaluate and treat [...] any myalgia. sleep apnea1 Pt has sleep crossing tender ea Pt has not been using cpap [...] years ago sleep apnea1 Pt has sleep crossing tender ea. pt hs been using cpap for [...] polyuria ,polydipsia. HLP Pt has HLP, Pt t akes [...] his pain. Pt went to ER [facility] recently and he had Ct of cervical [...] failed OTC Tenactin. 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 Pt had Tdap last year at ER [facility] Pt has been diet and exercising. Pt needs lipid profile checked sleep apnea1 Pt has sleep crossing tender ea .Pt snores. Pt could not afford [...] and monitoring. shoulder pain1 Pt c/o right rjei ulder pain for 2-3 days. pt denies [...] is stable. sleep apnea1 Pt has sleep crossing tender ea. 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
[2024-10-25 23:02] VITALS: BP 157/96; PULSE 67; RESP 20; O2SAT 96
[2024-10-25 23:08] LABS: Alanine Aminotransferase 25 U/L (6-50); Albumin Level 4.5 g/dL (3.5-5.1); Alkaline Phosphatase 54 U/L (38-126); Anion Gap 8 mmol/L (4-12); Aspartate Amino Transferase 36 U/L (17-59); Bilirubin,Total 0.4 mg/dL (0.2-1.3); Blood Urea Nitrogen 14 mg/dL (9-20); Calcium 9.9 mg/dL (8.4-10.2); Carbon Dioxide 30 mmol/L (22-30); Chloride 101 mmol/L (98-107); Estimated Glomerular Filt Rate > 60; Glucose 101 mg/dL (65-110); Lipase 244 U/L (23-300); Potassium 3.9 mmol/L (3.4-5.0); Sodium 139 mmol/L (137-145); Total Protein 7.7 g/dL (6.3-8.2)
[2024-10-26] MEDS: KETOROLAC 15 MG/ML VIAL (*BKC) IV PUSH (01:09)
== END 2024-10-26 01:28 | disposition home or self-care (01) ==
PROVIDERS: Emergency Provider Emergency Medicine; PCP Emergency Medicine
DX: N13.2 Hydronephrosis with renal and ureteral calculous obstruction (principal); E78.5 Hyperlipidemia, unspecified; I10 Essential (primary) hypertension; Z87.891 Personal history of nicotine dependence; K80.20 Calculus of gallbladder without cholecystitis without obstruction; K76.9 Liver disease, unspecified
CPT/HCPCS: 36415; 74177; 80053; 81001; 83690; 83735; 85025; 96374; 96375; 99284; J1885; J2270; J2405; Q9967

== ENCOUNTER 2024-11-28 06:51 | Day surgery (SDC) | payer BC, SELFPAY ==
[2024-06-30 13:33] VITALS: BMI 39.2
[2024-11-13 08:47] VITALS: BMI 38.4
--- OUTSIDE RECORDS SUMMARY | 2024-11-28 06:54 | XMS_ITS | Encounter Summary ---
Author Organization [facility] Address [address] [place] [address] Care Team Providers Care [employer] Founder Name Role Phone Martín Gayle MD Primary Care Provider [phone] Encounter Details Date Type Department Care Team (Late st Contact Info) Description 06/21/2022 Lab Requisition [facility] [address] [place] [address] Checo Sanches MD [address] [place] [address] Social History Tobacco Use Types Packs/Day Years Used Date Smoking Tobacco: Never Alcohol Use Standard Drinks/Week Comments No 0 (1 standard drink = 0.6 oz pur e alcohol) Sex and Gender Information Value Date Recorded Sex Assigned at Not on file Legal Sex Male 2:[address] Gender Identity Not on file Sexual Orientation Not on file documented as of this encounter Plan of Treatment Not on file documented as of this encounter Procedures Procedure Name Priority Date/Time Associated Diagnosis Comments DERMATOPATHOLOGY Routine 06/20/2022 12:[address] documented in this encounter Results * DERMATOPATHOLOGY (06/20/2022 12:[address] WORKER) Case Report Dermatopathology Report Case: [id number] Authorizing Provider: Checo Sanches MD Collected: 06/20/2022 12:00 AM Ordering Location: [facility] Received: 06/21/2022 04:06 PM Pathologist: Darcy Victor MD Specimen: Skin, right mid helix 4:[address] WORKER DERMATOPATHOLOGY LABORATORY Final Diagnosis Specimen A. 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 Fibroma vs. BCCA. Path# [id number] 3 4:52 PM [facility]ERMATOPATH[facility]Y [facility] Gross Description Specimen A: Received is one formalin filled container labeled with the patient's name and designated right mid helix. The specimen consists of a shave biopsy measuring [id number]. Jar 0. 3 4:52 PM [facility] DERMATOPATHOLOGY [facility]ORATORY Microscopic Description Specimen A. SKIN, right mid helix: There are nests of cytologically bland melanocytes within the dermis that mature with depth. 3 4:52 PM [facility] DERMATOPATHOLOGY [facility]ORATORY Disclaimer An external and internal positive and negative controls are appropriate for the histochemical, immunohistochemical and immunofluorescence stain(s) in this case (if any), except where stated explicitly. The performance characteristics of the stain(s) cited in this report were developed and its performance characteristic determined by the Dermatopathology Laboratory at [facility], directed by Dr. Bhupendra Koch. These tests need not be, and therefore are not, approved by the [place] Food and Drug Administration. The tests are used for clinical purposes. Billing Codes Specimen Charges Stain Charges 11122 1 3 4:52 PM [facility] DERMATOPATH[facility]Y [facility] Embedded Images 3 4:52 PM [facility]ERMAT[facility]ATH[facility] Pathology/Cytolog y TISSUE SPECIMEN FROM SKIN / Unknown 06/20/2022 06/21/2022 4:06 PM [facility] us Checo Sanches MD LAB - PATHOLOGY/CYTOLOGY ORDER JAMI Final Result DERMATOPATHOLOGY LABORATORY [facility] - Department of Dermatology [address], [address] [phone] documented in this encounter Visit Diagnoses Not on filedocumented in this encounter Care Teams [employer] Founder Relationship Specialty Start Date End Date Martín Gayle MD PCP - General 05/18/21 documented as of this encounter
--- OUTSIDE RECORDS SUMMARY | 2024-11-28 06:54 | XMS_ITS | Continuity of Care Document ---
Author Organization [facility] Address [address] [place] [address] [place] [address] Phone Care Team Providers Care Filling Machine Tender Name Role Phone Martín Gayle MD Unavailable [...] one hour before active, max 1/24 hour Monetta 7.5 mg-325 mg tablet take 1 tablet [...] Providers Copied on Encounter OFFICE/OUTPA TIENT VISIT, [facility], [address], [place], [place], [address], [place] tel:[phone] [facility] renal stone1 (chief complaint) renal1 (chief complaint) gallstone (chief complaint) Renal stoneOther cholelithiasis without obstructionNeoplasm of unspecified behavior of left kidney 0 5 Irwin Resendiz. [address], [place], [place], [address] , [place]. tel:[phone] OFFICE/OUTPA TIENT VISIT, [facility], [address], [place], [place], [address], [place] tel:[phone] [facility] HLP (chief complaint) HTN (chief complaint) DM (chief complaint) colon (chief complaint) Essential (primary) hypertensionPolyp of colonMixed hyperlipidemiaType 2 diabetes mellitus without complicationsObstru ctive sleep apnea hypopnea 5 Gayle Martín. [address], [place], [place], [address] , [place]. tel:[phone] PREV VISIT, EST, AGE 40-64 [facility], [address], [place], [place], [address], [place] tel:[phone] [facility] physical (chief complaint) Encounter for general adult medical exam w abnormal findingsEssential (primary) hypertensionAbnorma l weight lossMixed hyperlipidemiaMale erectile dysfunction, unspecifiedPolyp of colonType 2 diabetes mellitus without complications 4 Gayle Martín. [address], [place], [place], [address] , [place]. tel:[phone] OFFICE/OUTPA TIENT VISIT, [facility], [address], [place], [place], [address], [place] tel:[phone] [facility] HTN (chief complaint) HLP (chief complaint) sleep apnea1 (chief complaint) DM (chief complaint) Essential (primary) hypertensionType 2 diabetes mellitus without complicationsMixed hyperlipidemiaObstr uctive sleep apnea hypopneaAbnormal weight loss 4 Irwin Cordova [address], [place], [place], [address] , [place]. tel: [phone] OFFICE/OUTPA TIENT VISIT, [facility], [address] [place], [address], [place] tel:[phone] [facility] HLP (chief complaint) DM (chief complaint) HTN (chief complaint) nausea1 (chief complaint) dysuria1 (chief complaint) DysuriaMixed hyperlipidemiaType 2 diabetes mellitus without complicationsAbnorm al weight lossGERD w/o esophagitisEssentia l (primary) hypertension 4 Irwin Cordova [address], [place], [place], [address] , [place]. tel: [phone] OFFICE/OUTPA TIENT VISIT, [facility], [address] [place], [address], [place] tel:[phone] [facility] UTI1 (chief complaint) DM (chief complaint) HLP (chief complaint) DysuriaType 2 diabetes mellitus without complicationsAbdomi nal painMixed hyperlipidemia 4 Irwin Cordova [address], [place], [place], [address] , [place]. tel: [phone] OFFICE/OUTPA TIENT VISIT, [facility], [address] [place], [address], [place] tel:[phone] [facility] HLP (chief complaint) GI (chief complaint) DM (chief complaint) weight loss1 (chief complaint) Mixed hyperlipidemiaType 2 diabetes mellitus without complicationsAbnorm al weight lossIrritable bowel syndrome 4 Irwin Resendiz. [address], [place], [place], [address] , [place]. tel: [phone] OFFICE/OUTPA TIENT VISIT, [facility], [address] [place], [address], [place] tel:[phone] [facility] DM (chief complaint) HLP (chief complaint) GI (chief complaint) Type 2 diabetes mellitus without complicationsIrrita ble bowel syndromeMixed hyperlipidemiaOccul t blood in stool 4 Irwin Cordova [address], [place], [place], [address] , [place]. tel:[phone] OFFICE/OUTPA TIENT VISIT, [facility], [address], [place], [place], [address], [place] tel:[phone] [facility] cough1 (chief complaint) Acute bronchitis 3 Irwin Cordova [address], [place], [place], [address] , [place]. tel:[phone] PREV VISIT, EST, AGE 40-64 [facility], [address], [place], [place], [address], [place] [phone] [facility] physical (chief complaint) Encounter for general adult medical exam w abnormal findingsOccult blood in stoolMale erectile dysfunction, unspecifiedMixed hyperlipidemiaEssen tial (primary) hypertensionPrimary central sleep apnea 3 Irwin Cordova [address], [place], [place], [address] , [place]. tel:[phone] OFFICE/OUTPA TIENT VISIT, EST [facility], [address], [place], [place], [address], [place] tel:[phone] [facility] bleeding1 (chief complaint) sleep apnea1 (chief complaint) Occult blood in stoolPrimary central sleep apneaHypertrophy of nasal turbinates 3 Irwin Cordova [address], [place], [place], [address] , [place]. [phone] Referring Provider: Aggie [address], [place], [place], [address]. tel:[phone] OFFICE/OUTPA TIENT VISIT, [facility], [address], [place], [place], [address], [place] tel:[phone] [facility] septum1 (chief complaint) ED (chief complaint) nausea1 (chief complaint) Hypertrophy of nasal turbinatesMale erectile dysfunction, unspecifiedPrimary central sleep apneaNausea w/o vomiting Mar-0 3 Irwin Resendiz. [address], [place], [place], [address] , [place]. tel:[phone] Referring Provider: Aggie [address], [place], [place], [address]. tel:[phone] OFFICE/OUTPA TIENT VISIT, [facility], [address], [place], [place], [address], [place] tel:[phone] [facility] sleep apnea1 (chief complaint) ED (chief complaint) Primary central sleep apneaHypertrophy of nasal turbinatesMale erectile dysfunction, unspecified 3 Irwin Resendiz. [address], [place], [place], [address] , [place]. tel:[phone] Referring Provider: Aggie [address], [place], [place], [address]. tel:[phone] OFFICE/OUTPA TIENT VISIT, [facility], [address], [place], [place], [address], [place] tel:[phone] [facility] HTN (chief complaint) ED (chief complaint) glucose1 (chief complaint) HLP (chief complaint) Mixed hyperlipidemiaPrima ry central sleep apneaEssential (primary) hypertensionHypergl ycemiaMale erectile dysfunction, unspecified 2 Irwin Resendiz. [address], [place], [place], [address] , [place]. tel:[phone] Referring Provider: Aggie [address], [place], [place], [address]. tel:[phone] OFFICE/OUTPA TIENT VISIT, [facility], [address], [place], [place], [address], [place] tel:[phone] [facility] liver lesions1 (chief complaint) HTN (chief complaint) Liver diseaseMixed hyperlipidemia Jan- 2 Irwin Resendiz. [address], [place], [address] , [place]. tel:[phone] Referring Provider: Aggie [address], [place], [place], [address]. tel:[phone] OFFICE/OUTPA TIENT VISIT, [facility], [address], [place], [place], [address], [place] tel:[phone] [facility] abd pain1 (chief complaint) Acute appendicitis without localized peritonitisOther specified diseases of liverOther cholelithiasis without obstruction 2 Irwin Resendiz. [address], [place], [address] , [place]. tel:[phone] Referring Provider: Aggie [address], [place], [place], [address]. tel:[phone] OFFICE/OUTPA TIENT VISIT, [facility], [address], [place], [place], [address], [place] tel:[phone] [facility] abd pain1 (chief complaint) Umbilical herniaLower abdominal pain, unspecifiedOccult blood in stool Nov- 2 Irwin Cordova [address], [place], [place], [address] , [place]. tel:[phone] Referring Provider: Aggie [address], [place], [place], [address]. tel:[phone] OFFICE/OUTPA TIENT VISIT, [facility], [address], [place], [place], [address], [place] tel:[phone] [facility] HTN (chief complaint) sleep apnea1 (chief complaint) HLP (chief complaint) Essential (primary) hypertensionMixed hyperlipidemiaPrima ry central sleep apnea 2 Irwin Resendiz. [address], [place], [place], [address] , [place]. tel:[phone] Referring Provider: [address], [place], [place], [address]. tel:[phone] PREV VISIT, EST, AGE 40-64 [facility], [address], [place], [place], [address], [place] tel:[phone] [facility] physical (chief complaint) Encounter for general adult medical exam w abnormal findingsPolyp of colonEssential (primary) hypertensionMixed hyperlipidemiaPrima ry central sleep apnea 2 Irwin Cordova [address], [place], [place], [address] , [place]. [phone] Referring Provider: [address], [place], [place], [address]. tel:[phone] OFFICE/OUTPA TIENT VISIT, EST [facility], [facility] [address], [place], [place], [address], [place] tel:[phone] [facility] HTN (chief complaint) HLP (chief complaint) colon polyp1 (chief complaint) Polyp of colonEssential (primary) hypertensionHyperli pidemia 1 Irwin Cordova [address], [place], [place], [address] , [place]. tel:[phone] Referring Provider: [address], [place], [place], [address]. tel:[phone] PREV VISIT, EST, AGE 40-64 [facility], [address], [place], [place], [address], [place] tel:[phone] [facility] physical (chief complaint) Encounter for general adult medical exam w abnormal findingsEssential (primary) hypertensionHyperli pidemiaHyperglycemi aPolyp of colon 1 Irwin Cordova [address], [place], [place], [address] , [place]. [phone] Referring Provider: Aggie [address], [place], [place], [address]. tel:[phone] PREV VISIT, EST, AGE 40-64 [facility], [address], [place], [place], [address], [place] tel:[phone] [facility] physical (chief complaint) HyperlipidemiaHyper glycemiaAthlete's footEssential (primary) hypertensionEncount er for general adult medical exam w abnormal findingsHerpes simplex infectionDisorder of penisEncounter for general adult medical examination without abnormal findings 0 Irwin Resendiz. [address], [place], [place], [address] , [place]. tel:[phone] Referring Provider: Aggie Jefferson [facility] A, [place], [place], [address]. tel:[phone] OFFICE/OUTPA TIENT VISIT, [facility], [address], [place], [place], [address], [place] tel:[phone] [facility] Athletic foot1 (chief complaint) penile lesion1 (chief complaint) HLP (chief complaint) glucose1 (chief complaint) sick (chief complaint) Athlete's footHyperlipidemiaH yperglycemiaViral infectionDisorder of penis 0 Irwin Resendiz. [address], [place], [place], [address] , [place]. tel:[phone] Referring Provider: Aggie Jefferson [address] [facility] [address], [place], [place], [address]. tel:[phone] OFFICE/OUTPA TIENT VISIT, [facility], [address], [place], [place], [address], [place] tel:[phone] [facility] hand rash1 (chief complaint) back pain1 (chief complaint) foot fugus1 (chief complaint) HLP (chief complaint) Athlete's footEczemaChronic pain syndromeHyperlipide leland 0 Irwin Cordova [address], [place], [place], [address] , [place]. tel:[phone] Referring Provider: Aggie Jefferson [facility] A, [place], [place], [address]. tel:[phone] OFFICE/OUTPA TIENT VISIT, [facility], [address], [place], [place], [address], [place] tel:[phone] [facility] chronic pain1 (chief complaint) hLP (chief complaint) glucose1 (chief complaint) foot itch (chief complaint) rash1 (chief complaint) HyperlipidemiaHyper glycemiaChronic pain syndromeEczemaAthle te's foot 8202 0 Irwin Cordova [address], [place], [place], [address] , [place]. tel:[phone] Referring Provider: Aggie [address], [place], [place], [address]. tel:[phone] OFFICE/OUTPA TIENT VISIT, [facility], [address], [place], [place], [address], [place] tel:[phone] [facility] neck pain1 (chief complaint) back pain1 (chief complaint) HTN (chief complaint) Other spondylosis, cervical regionOther spondylosis, lumbar regionEssential (primary) hypertension Mar-3 0-201 9 Irwin Cordova [address], [place], [place], [address] , [place]. tel:[phone] Referring Provider: [address], [place], [place], [address]. tel:[phone] OFFICE/OUTPA TIENT VISIT, [facility], [address], [place], [place], [address], [place] tel:[phone] [facility] neck pain1 (chief complaint) tinea1 (chief complaint) back pain1 (chief complaint) HTN (chief complaint) Body mass index (BMI) 40.0-44.9, adultAthlete's footChronic pain syndromeRadiculopat hy, cervical regionEssential (primary) hypertension Mar-0 3-201 9 Irwin [address], [place], [place], [address] , [place]. tel:[phone] Referring Provider: Aggie [address], [place], [place], [address]. tel:[phone] OFFICE/OUTPA TIENT VISIT, [facility], [address], [place], [place], [address], [place] [phone] [facility] athlete foot (chief complaint) Athlete's footFatty liverCellulitis of right lower limb 9 Irwin Resendiz. [address], [place], [place], [address] , [place]. tel:[phone] Referring Provider: [address], [place], [place], [address]. tel:[phone] PREV VISIT, EST, AGE 40-64 [facility], [address], [place], [place], [address], [place] [phone] [facility] PHysical (chief complaint) Encounter for general adult medical exam w abnormal findingsHematuriaHy perlipidemiaEssenti al (primary) hypertensionAbnorma l weight lossOtalgia, right earLumbago 9 Irwin Resendiz. [address], [place], [place], [address] , [place]. [phone] Referring Provider: [address], [place], [place], [address]. tel:[phone] OFFICE/OUTPA TIENT VISIT, [facility], [address], [place], [place], [address], [place] tel:[phone] [facility] HLP (chief complaint) HTN (chief complaint) neck pain1 (chief complaint) wart1 (chief complaint) HyperlipidemiaRadic ulopathy, cervical regionPlantar wartEssential (primary) hypertension 9 Irwin Resendiz. [address], [place], [place], [address] , [place]. [phone] Referring Provider: [address], [place], [place], [address]. tel:[phone] OFFICE/OUTPA TIENT VISIT, [facility], [address], [place], [place], [address], [place] tel:[phone] [facility] hematuria1 (chief complaint) HLP (chief complaint) back pain1 (chief complaint) HematuriaHyperlipid emiaChronic pain syndrome 9 Irwin Resendiz. [address], [place], [place], [address] , [place]. tel:[phone] Referring Provider: Martín Gayle, [address], [place], [place], [address]. tel:[phone] OFFICE/OUTPA TIENT VISIT, [facility], [address], [place], [place], [address], [place] tel:[phone] [facility] HTN (chief complaint) abdominal pain1 (chief complaint) HLP (chief complaint) UTI1 (chief complaint) HyperlipidemiaAbdom inal painEssential (primary) hypertensionUrinary tract infection Irwin Resendiz. [address], [place], [place], [address] , [place]. tel:[phone] Referring Provider: Aggie [address], [place], [place], [address]. tel:[phone] OFFICE/OUTPA TIENT VISIT, [facility], [address], [place], [place], [address], [place] tel:[phone] [facility] HTN (chief complaint) fatty liver1 (chief complaint) abd pain1 (chief complaint) HLP (chief complaint) Polyp of colonHyperlipidemia Fatty liverOther cholelithiasis without obstructionEssentia l (primary) hypertension 8 Irwin Resendiz. [address], [place], [place], [address] , [place]. tel:[phone] Referring Provider: Aggie [address], [place], [place], [address]. tel:[phone] OFFICE/OUTPA TIENT VISIT, [facility], [address], [place], [place], [address], [place] tel:[phone] [facility] abdominal pain1 (chief complaint) HTN (chief complaint) colon polyp1 (chief complaint) Body mass index (BMI) 40.0-44.9, adultAbdominal painEssential (primary) hypertensionUmbilic al herniaPolyp of colon 8 Irwin Cordova [address], [place], [place], [address] , [place]. tel:[phone] Referring Provider: Aggie [address], [place], [place], [address]. tel:[phone] OFFICE/OUTPA TIENT VISIT, [facility], [address], [place], [place], [address], [place] tel:[phone] [facility] HTN (chief complaint) abd pain1 (chief complaint) travel1 (chief complaint) HLp (chief complaint) Essential (primary) hypertensionAbdomin al painEncounter for antibody response examinationHyperlip idemia 8 Irwin Cordova [address], [place], [place], [address] , [place]. tel:[phone] Referring Provider: Aggie Jefferson [facility] [address], [place], [place], [address]. tel:[phone] PREV VISIT, EST, AGE 40-64 [facility], [address], [place], [place], [address], [place] tel:[phone] [facility] abdominal pain1 (chief complaint) HTN (chief complaint) sleep apnea1 (chief complaint) HLP (chief complaint) Abdominal painEssential (primary) hypertensionSleep apneaEncounter for general adult medical exam w abnormal findingsHyperlipide leland 8 Irwin Cordova [address], [place], [place], [address] , [place]. tel:[phone] Referring Provider: Aggie [address], [place], [place], [address]. tel:[phone] OFFICE/OUTPA TIENT VISIT, [facility], [address], [place], [place], [address], [place] tel:[phone] [facility] HTN (chief complaint) sleep apnea1 (chief complaint) shoulder pain1 (chief complaint) Body mass index (BMI) 39.0-39.9, adultSleep apneaEssential (primary) hypertensionAnterio r chest-wall painPain in right shoulder 8 Irwin Cordova [address], [place], [place], [address] , [place]. tel:[phone] Referring Provider: Aggie Jefferson [address], [place], [place], [address]. tel:[phone] OFFICE/OUTPA TIENT VISIT, [facility], [address], [place], [place], [address], [place] tel:[phone] [facility] neck pain1 (chief complaint) weight gain1 (chief complaint) back pain1 (chief complaint) LymphadenopathyLumb agoBody mass index (BMI) 40.0-44.9, adult 8 Irwin Cordova [address], [place], [place], [address] , [place]. tel:[phone] Referring Provider: [address]ie [address], [place], [place], [address]. tel:[phone] OFFICE/OUTPA TIENT VISIT, [facility], [address], [place], [place], [address], [place] tel:[phone] [facility] HTN (chief complaint) hand numbness1 (chief complaint) sleep apnea1 (chief complaint) obesity1 (chief complaint) Sleep apneaEssential (primary) hypertensionAbnorma l weight gainParesthesia of skin 8 Irwin Cordova [address], [place], [address] , [place]. tel:[phone] Referring Provider: Aggie [address], [place], [place], [address]. tel:[phone] OFFICE/OUTPA TIENT VISIT, [facility], [address], [place], [place], [address], [place] tel:[phone] [facility] sleep apnea (chief complaint) sleep apnea1 (chief complaint) back pain1 (chief complaint) obesity1 (chief complaint) Sleep apneaBody mass index (BMI) 40.0-44.9, adultLumbagoEssenti al (primary) hypertension 7 Irwin Resendiz. [address], [place], [place], [address] , [place]. tel:[phone] Referring Provider: Aggie Jefferson [address], [place], [place], [address]. tel:[phone] OFFICE/OUTPA TIENT VISIT, [facility], [address], [place], [place], [address], [place] tel:[phone] [facility] HLP (chief complaint) vitamin D (chief complaint) cough1 (chief complaint) HTN (chief complaint) sleep disorder1 (chief complaint) HyperlipidemiaVitam in D deficiency, unspecifiedCoughEss ential (primary) hypertension 7 Irwin Resendiz. [address], [place], [address] , [place]. tel:[phone] Referring Provider: Aggie Jefferson [address], [place], [place], [address]. tel:[phone] OFFICE/OUTPA TIENT VISIT, [facility], [address], [place], [place], [address], [place] tel:[phone] [facility] cough1 (chief complaint) HTN (chief complaint) obesity1 (chief complaint) CoughEssential (primary) hypertensionBody mass index (BMI) 40.0-44.9, adult 7 Irwin Resendiz. [address], [place], [place], [address] , [place]. [phone] Referring Provider: Aggie Jefferson [address], [place], [place], [address]. tel:[phone] OFFICE/OUTPA TIENT VISIT, [facility], [address], [place], [place], [address], [place] tel:[phone] [facility] cough1 (chief complaint) HTN (chief complaint) Acute bronchitis, unspecifiedEssentia l (primary) hypertension 7 Irwin Resendiz. [address], [place], [place], [address] , [place]. [phone] Referring Provider: Martín Gayle, [address], [place], [place], [address]. tel:[phone] PREV VISIT, NEW, AGE 40-64 [facility], [address], [place], [place], [address], [place] tel:[phone] [facility] PHysical (chief complaint) Encounter for general adult medical exam w abnormal findingsEssential (primary) hypertensionSleep apneaAcute bronchitis, unspecified 7 Irwin Res[address]. [address], [place], [place], [address] , [place]. tel:[phone] Referring Provider: Martín Gayle, [address], [place], [place], [address]. tel:[phone] [facility], [address], [place], [place], [address], [place] tel:[phone] [facility] No Information 7 Irwin Resend[address]. [address], [place], [place], [address] , [place]. tel:[phone] Family History Family Member Type Diagnosis Age At Onset Mother Problem (finding) Melanoma Father Problem (finding) Hypertension Mother Problem (finding) CABG 69 Father Problem (finding) ? MS Sister Problem (finding) Alive and well Payers Payer name Insurance type Covered green party ID Authorbucka yenny(s) [facility] CI [id number] Social History Type Description Quantity Date Captured [...] ordered Referral Referred To: ZAIRA BAKER [address] [facility] [address] [place], [place], [phone] Ordered: Referrals: Allopathic & Osteopathic Physicians : [...] -Podiatric Medicine & Surgery Service Providers : Damage Prevention Coordinator (related to Plantar wart) ordered Referral Referred To: SANTIAGO YEAGER [facility][note 3][address] [facility] [place], [place], [phone] Ordered: Referrals: Podiatric Medicine & Surgery Service Providers : Damage Prevention Coordinator. SANTIAGO YEAGER. Evaluate and treat ordered Referral Referred To: Mickey Gillespie MD [address] [facility] [address] [place], [place], [address] Ordered: Referrals: Mickey Gillespie MD Evaluate and treat ordered Referral Ordered: NUC MED HIDA (HEPATOBILIARY) SCAN ordered Referral Ordered: US EXAM, ABDOM, COMPLETE ordered Referral Ordered: Sukhi Causey (related to Carpal tunnel syndrome of arm) ordered Referral Referred To: Sukhi Causey [address] [place], [place] [id number] Ordered: Referrals: Sukhi Causey. Evaluate and treat ordered Referral Ordered: CHEST X-RAY PA/LAT TWO-VIEWS ordered Referral Ordered: Otolaryngology (related to Sleep apnea) ordered Referral Ordered: Referrals: Otolaryngology. Evaluate and treat ordered Appointment Grider, Gio BOOKED History Of Present Illness Encounter Date Complaint History Of Prese nt Illness gallstone pt has incidenta l finding of gallstone Pt is on ozempic pt denies any abd pain renal stone1 Pt has recurrent renal stone [...] CT to be done in 4 weeks. HLP Pt has HLP Pt ta kes [...] any myalgia. sleep apnea1 Pt has sleep brass polisher ea Pt has not been using cpap [...] myalgia. Pt tolerating crestor 20 mg well GI Pt has occasiona l bloating and [...] myalgia. His LDL is not at goal HLP Pt has HLP Pt ta kes [...] Pt had benign EGD several years ago ED Pt has ED. Pt do ing well with sildenafil pRN. Pt denies any testicular pain atrophy or nodule Pt states that sildenafil PRn works well sleep apnea1 Pt has sleep brass polisher ea. pt hs been using cpap for several weeks and he failed face mask and nasal masks. Pt states that he has difficulty breathing through his nose at night while using the masks. He does have some nasal congestion in general even without the cpap masks. Pt tried heated tube with humidifier but did not work either . HLP Pt has HLP, Pt t akes [...] did not improve HLP Pt has HLP pt ta ke [...] now and is helping. Pt failed lamisil hand rash1 Pt has bilateral dorsal hand [...] his pain. Pt went to ER at [place] recently and he had Ct of cervical [...] failed OTC Tenactin. Pt then saw his forensic accountant and he was started on ketoconazole topical [...] or headache travel1 Pt is going to [facility] and he wants to get hep B vaccine due to possible tattoo he plans to get in [place]. Pt had Tdap last year at ER HLp Pt has been diet and exercising. Pt needs lipid profile checked sleep apnea1 Pt has sleep brass polisher ea .Pt snores. Pt could not afford [...] is stable. sleep apnea1 Pt has sleep brass polisher ea. Pt is in the process of [...] been lifting at home to decorate for [employer] house and he thinks that he overdid [...] Mental Status Date Cognitive Assessment Orientation - [place] ed to time, place, person, situation.
--- OUTSIDE RECORDS SUMMARY | 2024-11-28 06:54 | XMS_ITS | Clinical Summary ---
Author Organization [facility] Address [address] [place] [address] Care Team Providers Care Generator Mechanic Name Role Phone Martín Gayle MD Primary Care Provider [phone] Source Comments [facility],non-owned Affiliates and Associated Physician Practices is amultiple site organization consisting of ambulatory clinics and hospital sitesin [place], [place], [place] and [place]. This disclosure is being madepursuant to the Care Everywhere program and may not contain all information available regarding this patient. 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
--- OUTSIDE RECORDS SUMMARY | 2024-11-28 06:54 | XMS_ITS | Clinical Summary ---
Author Organization [facility] Address [address] [place] [address] Care Team Providers Care Servomechanism Designer Name Role Phone Martín Gayle MD Primary Care Provider [phone] Allergies No known active allergies Medications losartan (COZAAR) 100 MG tabletIndications: Essential (primary) hypertension Take 1 tablet (100 mg total) by mouth after lunch. 11/04/19 22 Active HYDROcodone-acetam inophen (NORCO) 5-325 MG tablet Take 1 tablet by mouth every 12 (twelve) hours as needed. 11/03/19 Active rosuvastatin (CRESTOR) 20 MG tabletIndications: Hyperlipidemia, mixed Take 1 tablet (20 mg total) by mouth daily. 90 tablet 4 11/22/19 Active Additional Information Patient taking differently:20 mg OralNightly at bedtime, Reported on 10/30/2024 vitamin D3, cholecalciferol, 125 mcg capsule Take 1 capsule (125 mcg total) by mouth daily. Active Ascorbic Acid (VITAMIN C) 100 MG tablet Take 1 tablet (100 mg total) by mouth daily. Active HYDROcodone-acetam inophen (NORCO) 7.5-325 MG tabletIndications: Acute Pain < 7 Day Supply Take 1 tablet by mouth every 6 (six) hours as needed for Pain. Indications: Acute Pain < 7 Day Supply 20 tablet 07/14/19 23 Active sildenafil (VIAGRA) 50 MG tablet Take 1 tablet (50 mg total) by mouth daily. 12/12/19 23 Active celecoxib (CELEBREX) 100 MG capsule Take 1 capsule (100 mg total) by mouth daily. 12/03/19 23 Active OZEMPIC 2 mg/dose injection (PEN) INJECT 2 MG UNDER THE SKIN EVERY WEEK ON THE SAME DAY OF EACH WEEK Active ondansetron (ZOFRAN-ODT) 4 MG disintegrating tablet Take 1 tablet (4 mg total) by mouth every 8 (eight) hours as needed. 10/27/19 Active tamsulosin (FLOMAX) 0.4 MG Cap Take 1 capsule (0.4 mg total) by mouth nightly at bedtime. 10/23/19 25 Active ibuprofen (MOTRIN) 400 MG tablet Take 1 tablet (400 mg total) by mouth 3 (three) times daily as needed. FOR PAIN 10/27/19 Active Active Problems Problem Noted Date Diagnosed Date Sleep apnea 11/23/2022 Benign hypertension 02/05/2019 Encounters Date Type Department Care Team Description 10/30/2024 1:01 PM CDT - 10/30/2024 2:25 PM CDT Surgery [facility] [place] [address] Chris Emanuel MD CYSTOSCOPY WITH RIGHT URETEROSCOPY WITH LASER LITHOTRIPSY, RIGHT RETROGRADE PYELOGRAM, RIGHT STENT PLACEMENT, RIGHT URETER BIOPSY 10/30/2024 12:57 PM CDT Anesthesia [place] [facility] [place] [address] Anibal Kang MD Jackson, Samantha Rae, [employer] 10/30/2024 9:07 AM CDT - 10/30/2024 4:05 PM CDT Hospital Encounter [facility] [place] [address] Chris Emanuel MD Discharge Disposition: Home or Self Care (Routine Discharge) 10/29/2024 Travel from Last 3 Months Immunizations Immunization Administration Dates Next Due Tdap [...] Sex Assigned at Male 05/14/2024 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 Legal Sex Male 4:03 PM CDT Gender Identity Not on file Sexual Orientation Not on file 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 [employer] Not on file Not on rico e Not on file Last Filed Vital Signs Vital Sign Reading Time Taken Comments Blood Pressure 142/82 10/30/2024 4:05 PM CDT Pulse 71 10/30/2024 4:05 PM CDT Temperature 36.5 C (97.7 F) 10/30/2024 4:05 PM CDT Respiratory Rate 16 10/30/2024 4:05 PM CDT Oxygen Saturation 95% 10/30/2024 4:05 PM CDT Inhaled Oxygen Concentration - - Weight 111.5 kg (245 lb 13 oz) 10/30/2024 9:32 A M CDT Height 171.5 cm (5' 7.5) 10/30/2024 9:32 AM CDT Body Mass Index 37.93 10/30/2024 9:32 AM CDT Plan of Treatment Upcoming Encounters Date Type Department Care Team (Late st Contact Info) Description 05/18/2025 11:00 AM SHEET CUTTER [facility] [address], [place] [id number] Bashir Vázquez, RICHIE [facility] [address] [place] [address] Health Maintenance Due Date Last Done Comments [...] on patient's age to complete this topic Medical Devices Implanted Type Area Search Manager Device Identifier Shelf Expiration Date Model / Serial / Lot Stent Ureteral 6fr 26cm Pigtl Crv Taper Tip Bldr k - [id number] Implanted:Qty : 1 on 10/30/2024 by Chris Emanuel MD at [facility] Stent Right: Ureter 360pi GUCCI [id number] 07/17/2027 [id number] 30 / / [id number] Procedures Procedure Name Priority Date/Time Associated Diagnosis Comments SURG XR RETROGRD UROGRAPHY Routine 10/30/2024 1:58 PM CDT PATHOLOGY Routine 10/30/2024 1:16 PM CDT CYSTOURETHROSCOPY,B IOPSY 10/30/2024 12:57 PM CDT RIGHT URETERAL STONE N20.1 Case Notes SCHED BY FAX ON 10/29/24 JDK PHONE ASSESS LITHOTRIPSY INLCUDING INSERTION OF INDWELLING URETERAL STENT 10/30/2024 12:57 PM CDT RIGHT URETERAL STONE N20.1 Case Notes SCHED BY FAX ON 10/29/24 JDK PHONE ASSESS from Last 3 Months Results * SURG XR RETROGRD UROGRAPHY (10/30/2024 1:58 PM CDT) Anatomical Region Laterality Modality Abdomen Radiographic Sandrine ging 10/31/2024 7:05 AM CDT Impressions 10/31/2024 7:05 AM CDT Impression: No radiologic interpretation will be issued. The report and documentation of this exam will reside in the patient's permanent medical record and in the attending physician's procedure note. Ordered By: CHRIS EMANUEL Interpreted By: Bandar Olguin MD, 10/31/2024 7:05 AM Narrative 10/31/2024 7:05 AM CDT [place] [address] FLUOROSCOPY CONTROL ONLY Procedure Note Bandar Olguin MD - 10/31/2024 [place] [address] FLUOROSCOPY CONTROL ONLY Impression: No radiologic interpretation will be issued. The report and documentationof this exam will reside in the patient's permanent medical record and inthe attending physician's procedure note. Ordered By: CHRIS EMANUEL Interpreted By: Bandar Olguin MD, 10/31/2024 7:05 AM Chris Emanuel MD IMAGES ONLY Final Result * Pathology (10/30/2024 1:16 PM CDT) PATHOLOGY [facility] Department of Laboratory Medicine [address] [place] [address] , extension [id number] Pathology Report Surgical Pathology Report Name: AJ GRIDER Specimen #: [id number] Age: 11 1970 (Age: 54) Location: [facility] Sex: M Procedure Date: 10/30/2024 Hospital #: [id number] Date Received: 10/31/2024 Date Reported: 11/03/2024 Provider: CHRIS EMANUEL MD Source: A: Bladder, biopsy B: Ureter, biopsy Clinical History: Right ureteral stone FINAL DIAGNOSIS: A. Bladder, lesion, biopsy: - Noninvasive low-grade papillary urothelial carcinoma. - No muscularis propria tissue identified. B. Ureter, right lesion, biopsy: - Superficial fragment of urothelial mucosa with mild atypia of uncertain significance. Gross Description: A. Received in formalin, labeled with a patient label and as bladder lesion is a 0.3 cm piece of papillary white-san[place] tissue. The specimen is entirely submitted in cassette A1. B. Received in formalin, labeled with a patient label and as right ureter lesion are 2 pieces of delicate san[place] tissue, each less than 0.1 cm. The specimen is entirely submitted in cassette B1. Please note: Specimen B may not survive processing. Gross examination (when applicable), interpretation, and sign out were performed at [facility], [address] [place] [address]. Electronically Signed Out LILLIAN TOWNSEND MD [facility] TISSUE URINARY BLADDER STRUCTURE / Unknown 10/30/2024 1:16 PM CDT us Chris Emanuel MD PATHOLOGY/CYTOLOGY ORDERABLES F inal Result [facility] [address] [place] [address], [id number] from Last 3 Months Insurance Care Teams Servomechanism Designer Relationship Specialty Start Date End Date Martín Gayle MD PCP - General FAMILY PRACTICE 11/09/21
[2024-11-28 09:55] VITALS: BP 140/86; PULSE 72; RESP 18; TEMP 36.4; O2SAT 100; BMI 38.2
[2024-11-28] MEDS: LACTATED RINGERS 1,000 ML 150 ML IV CONT (10:17)
--- NOTE | 2024-11-28 10:51 | WPDANESEPPF ---
Anes - Initial Pre Proc Eval Procedure: Operation Date: 11/28/24 11:00 Proposed Procedures p Screening Colonoscopy - Valdemar Blackmon MD Date/Time: 11/28/24 10:51 Surgeon: Valdemar Blackmon MD Pre Op Diagnosis: Screenig Patient Data Age: 54 Gender: M Height: 1.7 m Weight: 110.8 kg Last Vital Signs Temp 97.5 F L 11/28/24 09:55 Pulse 72 11/28/24 09:55 Resp 18 11/28/24 09:55 BP 140/86 11/28/24 09:55 Pulse Ox 100 11/28/24 09:55 O2 Del Method Room Air 11/28/24 09:55 Allergies Allergy/AdvReac Type Severity Reaction Status Date / Time No Known Allergies Allergy Verified 11/28/24 09:54 Home Medications ?Medication ?Instructions ?Recorded ?Confirmed ?Type hydrocodone 5 mg-acetaminophen 325 5 - 325 tablet PO Q12-24H PRN Pain 05/06/21 06/30/24 History mg tablet losartan 100 mg tablet 100 mg PO DAILY 05/06/21 11/28/24 History rosuvastatin 10 mg tablet 10 mg PO DAILY 05/06/21 11/28/24 History rosuvastatin 20 mg tablet 20 mg PO DAILY 06/30/24 11/28/24 History semaglutide 2 mg/dose (8 mg/3 mL) 2 mg subcut WEEKLY 06/30/24 11/28/24 History subcutaneous pen injector (Ozempic) hydrocodone 5 mg-acetaminophen 325 1 tablet PO Q8H PRN pain #14 tabs 09/22/24 11/13/24 Rx mg tablet hydrocodone 5 mg-acetaminophen 325 1 tablet PO Q8H PRN pain #10 tabs 10/26/24 11/13/24 Rx mg tablet ibuprofen 400 mg tablet 400 mg PO TID PRN pain #20 tabs 10/26/24 11/13/24 Rx ondansetron 4 mg disintegrating 4 mg PO Q8H PRN nausea and 10/26/24 11/13/24 Rx tablet vomiting #14 tabs tamsulosin 0.4 mg capsule (Flomax) 0.4 mg PO DAILY #14 caps 10/26/24 11/28/24 Rx Patient hx anesthesia problems: none Family hx anesthesia problems: none Results Review: All pre-operative results and documents have been reviewed as part of the pre-operative evaluation. [facility] Past Medical History Medical History Chronic back pain Hyperlipidemia HTN (hypertension) Morbid obesity Surgical History Surgical History History of appendectomy Family History Family History Mother Family history of obesity Family history of malignant melanoma Father Patient's father is in good health Hypertension Sibling Patient's sister is in good health Social History Social History Smoking packs per day: 1 Smoking cigarettes per day: 20.0 Years smoked: 20 Smoking pack-years: 20.00 Smoking status: Former smoker Tobacco type: cigarettes Alcohol intake: former Substance use: current Substance use type: marijuana Other substance usage details: occasional Living arrangements: with family Additional living arrangements comments: Spiritual care concerns: No Anes - Eval Final PreProcedure Day of Procedure 11/28/24 10:51 Patient weight: obese Lungs: normal air movement Airway: Mallampati scale class II and special considerations (L upper incisor chipped. ) Neurological: alert and oriented Last oral intake: >/= 8 hours ASA classification: III Emergent: no Anesthetic plan: proceed Anesthesia type and monitoring: general GIVS and standard monitoring Results Review: All pre-operative results and documents have been reviewed as part of the pre-operative evaluation. HTN, hyperlipidemia, AVA no CPAP, ex smoker, quit 2007, GLP1 off 10 days. Informed Consent: The patient's anesthetic plan and its attendant risks and benefits were discussed with the patient/family/POA. Questions were solicited and answers provided to the satisfaction of the patient/family/POA.
--- NOTE | 2024-11-28 11:06 | PM.IMHP ---
H&P: HPI History of Present Illness Date/Time: 11/28/24 11:06 Chief Complaint: History of colon polyps Narrative: The patient has a history of colonic polyps, the last colonoscopy was 5 years ago. Review of Systems Review of Systems: All systems reviewed & are unremarkable except as noted in HPI and below PMFSH Past Medical History Medical History Chronic back pain Hyperlipidemia HTN (hypertension) Morbid obesity Surgical History Surgical History History of appendectomy Family History Family History Mother Family history of obesity Family history of malignant melanoma Father Patient's father is in good health Hypertension Sibling Patient's sister is in good health Social History Social History Smoking packs per day: 1 Smoking cigarettes per day: 20.0 Years smoked: 20 Smoking pack-years: 20.00 Smoking status: Former smoker Tobacco type: cigarettes Alcohol intake: former Substance use: current Substance use type: marijuana Other substance usage details: occasional Living arrangements: with family Additional living arrangements comments: Spiritual care concerns: No Meds Home Medications and Allergies Home Medications ?Medication ?Instructions ?Recorded ?Confirmed ?Type hydrocodone 5 mg-acetaminophen 325 5 - 325 tablet PO Q12-24H PRN Pain 05/06/21 06/30/24 History mg tablet losartan 100 mg tablet 100 mg PO DAILY 05/06/21 11/28/24 History rosuvastatin 10 mg tablet 10 mg PO DAILY 05/06/21 11/28/24 History rosuvastatin 20 mg tablet 20 mg PO DAILY 06/30/24 11/28/24 History semaglutide 2 mg/dose (8 mg/3 mL) 2 mg subcut WEEKLY 06/30/24 11/28/24 History subcutaneous pen injector (Ozempic) hydrocodone 5 mg-acetaminophen 325 1 tablet PO Q8H PRN pain #14 tabs 09/22/24 11/13/24 Rx mg tablet hydrocodone 5 mg-acetaminophen 325 1 tablet PO Q8H PRN pain #10 tabs 10/26/24 11/13/24 Rx mg tablet ibuprofen 400 mg tablet 400 mg PO TID PRN pain #20 tabs 10/26/24 11/13/24 Rx ondansetron 4 mg disintegrating 4 mg PO Q8H PRN nausea and 10/26/24 11/13/24 Rx tablet vomiting #14 tabs tamsulosin 0.4 mg capsule (Flomax) 0.4 mg PO DAILY #14 caps 10/26/24 11/28/24 Rx Allergies Allergy/AdvReac Type Severity Reaction Status Date / Time No Known Allergies Allergy Verified 11/28/24 09:54 Vital Signs Vital Signs - 24 hr 11/28/24 09:55 Temperature 97.5 F L Pulse Rate 72 Respiratory Rate 18 Blood Pressure 140/86 Pulse Oximetry 100 Oxygen Delivery Room Air Exam Const: General: cooperative and healthy appearing Resp: Effort & Inspection: normal respiratory effort and able to speak in complete sentences Auscultation: clear to auscultation bilaterally Cardio: Rate: regular rate Rhythm: regular rhythm GI: Inspection: normal to inspection GI Palp: No No hepatosplenomegaly present Auscultation: normal bowel sounds Rectal Exam: deferred Skin: General skin exam: normal color Psych: Appearance: grossly normal Mental Status: mental status grossly normal Assessment and Plan Assessment and plan (1) History of colon polyps: Code(s): Z86.010 - Personal history of colon polyps Status: Acute Assessment and Plan: The patient is deemed a good candidate for the procedure. Consent signed. Will proceed.
--- NOTE | 2024-11-28 11:23 | S_PTH ---
PATIENT: Gio Grider LOC: [facility] U#:[id number] AGE/SX: 54/M ROOM: RE11/28/[address]: Valdemar Blackmon MD : 1970 BED: DIS: 11/28/2024 SPEC #: [id number] RECD: 11/28/24 13:11 STATUS: JOSEPH REQ #: [id number] LEANNE: 11/28/24 11:[address]: Valdemar Blackmon DEPT: [facility] Surgical RECD BY: Alvino Vega ENTERED: 11/28/24 13:11 SP TYPE: Surgical OTHR DR: Martín Gayle MD Tissues: A - Colon Polypectomy Procedures: Hematoxylin and Eosin Stain Gross and Microscopic Level 4
[2024-11-28 11:27] VITALS: BP 96/58; PULSE 77; RESP 14; O2SAT 100
[2024-11-28 11:37] VITALS: BP 114/73; PULSE 69; RESP 16; O2SAT 97
[2024-11-28 11:47] VITALS: BP 109/75; PULSE 70; RESP 16; O2SAT 98
== END 2024-11-28 12:04 | disposition home or self-care (01) ==
PROVIDERS: PCP Emergency Medicine; Referring Provider Internal Medicine Gastroenterology; Visit Provider Internal Medicine Gastroenterology
PROC: 0DJD8ZZ Inspection of Lower Intestinal Tract, Via Natural or Artificial Opening Endoscopic (ICD-10-PCS; CPT 45378; principal; 2024-11-28 11:00)
DX: Z12.11 Encounter for screening for malignant neoplasm of colon (principal); D12.5 Benign neoplasm of sigmoid colon; E78.5 Hyperlipidemia, unspecified; I10 Essential (primary) hypertension; G47.33 Obstructive sleep apnea (adult) (pediatric); G89.29 Other chronic pain; M54.9 Dorsalgia, unspecified; F12.90 Cannabis use, unspecified, uncomplicated; E66.9 Obesity, unspecified; Z68.38 Body mass index [BMI] 38.0-38.9, adult; Z79.891 Long term (current) use of opiate analgesic; Z79.85 Long-term (current) use of injectable non-insulin antidiabetic drugs; Z79.1 Long term (current) use of non-steroidal anti-inflammatories (NSAID); Z99.89 Dependence on other enabling machines and devices; Z98.890 Other specified postprocedural states; Z87.891 Personal history of nicotine dependence; Z80.8 Family history of malignant neoplasm of other organs or systems
CPT/HCPCS: 45385; 88305; J2003; J2704; J7120